=== PATIENT | female | born 1940 | race Caucasian/White ===

== ENCOUNTER 2016-08-27 19:07 | Inpatient (IN) | payer OTHER, MEDICARE ==
[2016-08-27] MEDS ORDERED: ONDANSETRON 4 MG/2 ML VIAL ONE ×2 (19:16→22:24)
[2016-08-27 19:28] VITALS: BMI 30.9
--- NOTE | 2016-08-27 19:38 | PDOC ---
History of Present Illness <Carmen Pathak - Last Filed: 08/28/16 00:19> <Serena Aguiar - Last Filed: 08/28/16 01:30> - General Chief Complaint: Lightheaded Stated Complaint: Nausea/Vomiting Time Seen by Provider: 08/27/16 19:32 - History of Present Illness Initial Comments: 08/27/16 20:34 Patient is a 76 year old female with significant medical hx of COPD, DM, HTN, carotid stenosis, HLD, lung CA (2005) (s/p VALENTIN resection and chemotherapy), CAD s/p CABG (2014), and AFib (on Eliquis) who is presenting to the ED via EMS from home with sudden onset of dizziness, nausea, and vomiting just prior to arrival. Patient states that she had an abrupt onset of dizziness, that was somewhat vertiginous, with multiple episodes of nausea and vomiting that followed. The patient is also complaining of palpitations and tachycardia. She denies any fevers, chills, chest pain, or shortness of breath. Social Hx: Quit smoking 11 years ago, smoked for 50 years prior. PCP: Cosme Spring MD Industrial Servicer: Mat Wynn MD (Carmen Pathak) Past History <Carmen Pathak - Last Filed: 08/28/16 00:19> - Past Medical History Cancer: Yes (LOWER LOBE LUNG) Cardiac Disorders: (ATRIAL FIB) CVA: No COPD: Yes (EMPHYSEMA) CHF: Yes Dementia: No Diabetes: Yes (NIDDM - NO MED) GI Disorders: Yes (REFLUX) Disorders: No HTN: Yes Hypercholesterolemia: Yes Seizures: No Thyroid Disease: No - Surgical History Lung Surgery: Yes (lung resection) - Psycho/Social/Smoking Cessation Hx Anxiety: No Suicidal Ideation: No Smoking Status: No Smoking History: Former smoker Have you smoked in the past 12 months: No Number of Cigarettes Smoked Daily: 0 If you are a former smoker, when did you quit?: 8YRS AGO Information on smoking cessation initiated: No Hx Alcohol Use: No Drug/Substance Use Hx: No Substance Use Type: Alcohol Hx Substance Use Treatment: No <Serena Aguiar - Last Filed: 08/28/16 01:30> - Past Medical History Allergies/Adverse Reactions: Allergies Allergy/AdvReac Type Severity Reaction Status Date / Time No Known Drug Allergies Allergy Verified 08/27/16 19:25 Home Medications: Ambulatory Orders Alprazolam [Xanax] 0.25 mg PO Q6H PRN #0 tablet 11/24/12 Escitalopram Oxalate [Lexapro -] 10 mg PO DAILY 03/15/14 Furosemide [Lasix -] 40 mg PO DAILY 03/15/14 Meloxicam [Mobic -] 15 mg PO DAILY 03/15/14 Omeprazole [Prilosec] 20 mg PO DAILY 03/15/14 Atorvastatin Calcium 20 mg PO DAILY 02/16/15 Diltiazem HCl [Cardizem LA] 240 mg PO DAILY 02/16/15 Apixaban [Eliquis] 5 mg PO BID 02/17/15 Metoprolol Succinate [Toprol Xl] 50 mg PO DAILY 02/17/15 Metoprolol Succinate [Toprol Xl -] 25 mg PO HS 08/28/16 Review of Systems <Carmen Pathak - Last Filed: 08/28/16 00:19> <Serena Aguiar - Last Filed: 08/28/16 01:30> - Review of Systems Comments:: 08/27/16 20:35 CONSTITUTIONAL: Absent: fever, chills, diaphoresis, generalized weakness, malaise, loss of appetite HEENT: Absent: rhinorrhea, nasal congestion, throat pain, throat swelling, difficulty swallowing, mouth swelling, ear pain, eye pain, visual changes CARDIOVASCULAR: Present: palpitations, tachycardia Absent: chest pain, syncope, lightheadedness, peripheral edema RESPIRATORY: Absent: cough, shortness of breath, dyspnea with exertion, orthopnea, wheezing, stridor, hemoptysis GASTROINTESTINAL: Present: nausea, vomiting Absent: abdominal pain, abdominal distension, diarrhea, constipation, melena, hematochezia GENITOURINARY: Absent: dysuria, frequency, urgency, hesitancy, hematuria, flank pain, genital pain MUSCULOSKELETAL: Absent: myalgia, arthralgia, joint swelling SKIN: Absent: rash, itching, pallor HEMATOLOGIC/IMMUNOLOGIC: Absent: easy bleeding, easy bruising, lymphadenopathy, frequent infections ENDOCRINE: Absent: unexplained weight gain, unexplained weight loss, heat intolerance, cold intolerance NEUROLOGIC: Present: dizziness Absent: headache, focal weakness or paresthesia, unsteady gait, seizure, mental status changes, bladder or bowel incontinence. PSYCHIATRIC: Absent: anxiety, depression, suicidal or homicidal ideation, hallucinations (Carmen Pathak) *Physical Exam <Carmen Pathak - Last Filed: 08/28/16 00:19> <Serena Aguiar - Last Filed: 08/28/16 01:30> - Vital Signs Last Vital Signs Temp Pulse Resp BP Pulse Ox 97.2 F L 106 H 20 170/102 95 08/27/16 19:25 08/28/16 00:30 08/28/16 00:30 08/28/16 00:30 08/28/16 00:30 - Physical Exam Comments: 08/27/16 20:36 GENERAL: Well developed, well nourished. Awake and alert. Diaphoretic. Moderate distress. HEENT: Normocephalic, atraumatic. PERRLA, EOMI. No conjunctival pallor. Sclera are non- icteric. Moist mucous membranes. Oropharynx is clear. NECK: Supple. Full ROM. No JVD. Carotid pulses 2+ and symmetric, without bruits. No thyromegaly. No lymphadenopathy. CARDIOVASCULAR: Tachycardic. Irregularly irregular. No murmurs, rubs, or gallops. Distal pulses are 2+ and symmetric. PULMONARY: No evidence of respiratory distress. Lungs clear to auscultation bilaterally. No wheezing, rales or rhonchi. ABDOMINAL: Protuberant. Soft. Non-tender. Non-distended. No rebound or guarding. No organomegaly. Normoactive bowel sounds. MUSCULOSKELETAL: Normal range of motion at all joints. No bony deformities or tenderness. No CVA tenderness. EXTREMITIES: No cyanosis. No clubbing. No edema. No calf tenderness. SKIN: Warm and dry. Normal capillary refill. No rashes. No jaundice. NEUROLOGICAL: Alert, awake, appropriate. Cranial nerves 2-12 intact. Normal speech. Toes are down-going bilaterally. PSYCHIATRIC: Cooperative. Good eye contact. Appropriate mood and affect. (Carmen Pathak) Heart Score/ECG Review <Carmen Pathak - Last Filed: 08/28/16 00:19> <Serena Aguiar - Last Filed: 08/28/16 01:30> #1 08/27/16 20:40 Poor data quality, interpretation may be adversely affected Atrial fibrillation with rapid ventricular response with premature ventricular or aberrantly conducted complexes Possible Anterior infarct, age undetermined ST & T wave abnormality, consider lateral ischemia Abnormal ECG (Carmen Pathak) ED Treatment Course - LABORATORY CBC & Chemistry Diagram: 08/27/16 19:55 08/27/16 19:55 <Carmen Pathak - Last Filed: 08/28/16 00:19> - LABORATORY CBC & Chemistry Diagram: 08/27/16 19:55 08/27/16 19:55 <Serena Aguiar - Last Filed: 08/28/16 01:30> - ADDITIONAL ORDERS Additional order review: Laboratory Results 08/27/16 08/27/16 19:55 19:55 INR 1.29 H PTT (Actin FS) 32.1 Sodium 139 Potassium 3.5 D Chloride 105 Carbon Dioxide 22 D Anion Gap 12 BUN 17 Creatinine 0.8 Creat Clearance w eGFR > 60 Random Glucose 153 H D Calcium 8.5 Total Bilirubin 0.4 D AST 22 D ALT 30 Alkaline Phosphatase 82 D Creatine Kinase 42 Troponin I < 0.02 Total Protein 6.6 Albumin 3.3 L 08/27/16 19:55 RBC 4.61 MCV 92.3 MCHC 33.2 RDW 13.4 MPV 8.6 D Neutrophils % 67.1 Lymphocytes % 21.2 Monocytes % 9.6 Eosinophils % 1.0 Basophils % 1.1 - RADIOLOGY Radiology Studies Ordered: Category Date Time Status HEAD CT WITHOUT CONTRAST [CT] Stat CT Scan 08/27/16 21:34 Taken CHEST X-RAY PORTABLE* [RAD] Stat Radiology 08/27/16 19:43 Taken Radiograph Interpretation: 08/28/16 00:19 Road Oiler: ([email or web address]) Report Date: 08/27/2016 23:00:00 Report Status: Preliminary Begin of Report Content Referring Physician: Serena Aguiar Patient Name: Dianelys Delgado THIS IS A PRELIMINARY REPORT FROM [facility] EXAM: CT brain without contrast IMAGES: 171 EXAM DATE AND TIME: 2016-08-27 23:00:22.0 REASON FOR EXAM: Rule out subdural hemorrhage COMPARISON: CT brain July 03, 2005 FINDINGS: Bifrontal atrophic changes noted, present back in 2005. Involutional changes have progressed since then. No hemorrhage. No mass. Bilateral amado radiata chronic small vessel disease versus small vessel infarcts of indeterminate age. No shift or herniation. Osseous structures are intact. THIS DOCUMENT HAS BEEN ELECTRONICALLY SIGNED Devyn Duran MD 08/28/2016 00:07 KORIN Cisneros Please call [facility] [phone] ([phone]) with questions. End of Report Content (Lawson, Carmen) - Medications Given in the ED: ED Medications Discontinued Medications Generic Name Dose Route Start Last Admin Trade Name Freq PRN Reason Stop Dose Admin Diphenhydramine HCl 25 mg 08/27/16 20:08 08/27/16 20:29 Benadryl Injection - IVPB 08/27/16 20:09 25 mg ONCE ONE Administration Meclizine HCl 25 mg 08/27/16 21:51 08/27/16 21:55 Antivert - PO 08/27/16 21:52 25 mg ONCE ONE Administration Meclizine HCl 25 mg 08/27/16 22:17 08/27/16 23:47 Antivert - PO 08/27/16 22:18 25 mg ONCE ONE Administration Metoclopramide HCl 10 mg 08/27/16 20:07 08/27/16 20:29 Reglan Injection - IVPB 08/27/16 20:08 10 mg ONCE ONE Administration Metoprolol Succinate 50 mg 08/27/16 21:25 08/27/16 21:36 Toprol Xl - PO 08/27/16 21:26 50 mg ONCE ONE Administration Ondansetron HCl 4 mg 08/27/16 20:10 08/27/16 21:14 Zofran Injection IVPUSH 08/27/16 20:11 Not Given ONCE ONE Ondansetron HCl 4 mg 08/27/16 22:26 08/27/16 22:36 Zofran Injection IVPUSH 08/27/16 22:27 4 mg ONCE ONE Administration *DC/Admit/Observation/Transfer <Lawson,Carmen - Last Filed: 08/28/16 00:19> - Discharge Dispostion Admit: Yes <Serena Aguiar - Last Filed: 08/28/16 01:30> Diagnosis at time of Disposition: Vertigo Afib Qualifiers: Atrial fibrillation type: chronic Qualified Code(s): I48.2 - Chronic atrial fibrillation HTN (hypertension) Qualifiers: Hypertension type: essential hypertension Qualified Code(s): I10 - Essential ( primary) hypertension Intractable vomiting with nausea Qualifiers: Vomiting type: unspecified Qualified Code(s): R11.2 - Nausea with vomiting, unspecified - Referrals Referrals: Cosme Spring MD [Primary Care Provider] - - Attestations Scribe Attestion: 08/27/16 20:37 Documentation prepared by Carmen aPthak, acting as medical illustrator for Serena Aguiar MD. (Carmen Pathak)
[2016-08-27 20:00] LABS: BASOPHIL 1.1 % (0-2.0); MCH 30.6 pg (25.7-33.7); MCHC 33.2 g/dl (32.0-36.0); MEAN CELL VOLUME 92.3 fl (80-96); MEAN PLT VOLUME 8.6 fl (7.5-11.1); NEUTROPHILS 67.1 % (42.8-82.8); PLATELET COUNT 325 K/MM3 (134-434); RDW 13.4 % (11.6-15.6); WHITE BLOOD COUNT 9.9 K/mm3 (4.0-10.0)
[2016-08-27] MEDS ORDERED: METOCLOPRAMIDE HCL INJECTION 10 MG/2 ML VIAL IVPB ONE (20:07)
[2016-08-27] MEDS ORDERED: ONDANSETRON 4 MG/2 ML VIAL IVPUSH ONE ×2 (20:10→22:26)
[2016-08-27 20:12] LABS: INR 1.29 (0.82-1.09); PROTHROMBIN TIME (PATIENT) 14.3 SEC (9.98-11.88)
[2016-08-27 20:14] LABS: ACTIVATED PTT 32.1 SECONDS (26.9-34.4)
[2016-08-27] MEDS ORDERED: METOCLOPRAMIDE HCL INJECTION 10 MG/2 ML VIAL ONE (20:16)
[2016-08-27 20:22] LABS: ALBUMIN 3.3 g/dl (3.4-5.0); ALK PHOS 82 U/L (45-117); ANION GAP 12 (8-16); BILIRUBIN,TOTAL 0.4 mg/dL (0.2-1.0); CALCIUM 8.5 mg/dL (8.5-10.1); CO2 22 mmol/L (21-32); CREATININE 0.8 mg/dL (0.55-1.02); GLUCOSE,RANDOM 153 mg/dL (74-106); SGPT/ALT 30 U/L (12-78); TOT PROT 6.6 g/dl (6.4-8.2)
[2016-08-27 20:23] LABS: TROPONIN I < 0.02 ng/ml (0.00-0.05)
[2016-08-27 20:31] LABS: SGOT/AST 22 U/L (15-37)
[2016-08-27] MEDS ORDERED: METOPROLOL SUCCINATE 50 MG TAB.SR.24H (FP) PO ONE (21:25)
[2016-08-27] MEDS ORDERED: METOPROLOL SUCCINATE 50 MG TAB.SR.24H (FP) ONE (21:34)
[2016-08-27] MEDS ORDERED: MECLIZINE HCL 25 MG TABLET (FP) PO ONE ×2 (21:51→22:17)
[2016-08-27] MEDS ORDERED: MECLIZINE HCL 25 MG TABLET (FP) ONE ×2 (21:52→22:24)
[2016-08-28] MEDS ORDERED: METOPROLOL TARTRATE 5 MG/5 ML VIAL IVPUSH ONE (01:03)
[2016-08-28] MEDS ORDERED: METOPROLOL TARTRATE 5 MG/5 ML VIAL ONE (01:06)
[2016-08-28] MEDS ORDERED: dilTIAZem HCL 50 MG/10 ML - 10 ML VIAL IVPUSH ONE (02:31)
[2016-08-28] MEDS ORDERED: ACETAMINOPHEN 325 MG TABLET (FP) ONE (06:52)
[2016-08-28] MEDS ORDERED: SENNOSIDES 8.6MG TABLET (FP) PO PRN (11:17)
--- NOTE | 2016-08-28 11:20 | CON.CARD ---
Cardiology Consult (text) - Consultation Consultation Note: CC: afib 76 yo with h/o Lung CA, s/p resection and Chemo, Afib, CAD s/p CABG (2014), HTN , HL, DM, COPD, Anxiety, PAD s/p Fem-Fem bypass, carotid stenosis, lung CA (2005 ) (s/p VALENTIN resection and chemotherapy) p/w sudden onset of dizziness, nausea, and vomiting. Had acute onset of dizziness, spinning sensation associated with nausea and subsequent vomiting. symptoms worsened by movement, but also with severe dizziness and nausea even at rest. constant symptoms. Symptoms somewhat improved in ER with IVF and zofran. no preceding viral symptoms. denies any fevers, chills, sweats, diarrhea, headache, denies orthopnea, pnd, le edema, chest pain, or shortness of breath, transient neurologic symptoms . s/p 10 mg IV dilt, 5 mg IV metoprolol and 50 mg of toprol in ER. pmhx/pshx: per hi fam hx: no h/o afib Social Hx: Quit smoking 11 years ago, smoked for 50 years prior. ros: per hpi Commercial Accountant: Mat Wynn MD Ambulatory Orders Alprazolam [Xanax] 0.25 mg PO Q6H PRN #0 tablet 11/24/12 Escitalopram Oxalate [Lexapro -] 10 mg PO DAILY 03/15/14 Furosemide [Lasix -] 40 mg PO DAILY 03/15/14 Meloxicam [Mobic -] 15 mg PO DAILY 03/15/14 Omeprazole [Prilosec] 20 mg PO DAILY 03/15/14 Atorvastatin Calcium 20 mg PO DAILY 02/16/15 Diltiazem HCl [Cardizem LA] 240 mg PO DAILY 02/16/15 Apixaban [Eliquis] 5 mg PO BID 02/17/15 Metoprolol Succinate [Toprol Xl] 50 mg PO DAILY 02/17/15 Metoprolol Succinate [Toprol Xl -] 25 mg PO HS 08/28/16 Vital Signs - 24 hr 08/27/16 08/27/16 08/28/16 19:25 19:55 00:00 Temperature 97.2 F L Pulse Rate 142 H 104 H Pulse Rate [ 108 H Apical] Respiratory 14 18 Rate Blood Pressure 184/92 Blood Pressure 147/119 [Left Arm] O2 Sat by Pulse 99 99 97 Oximetry (%) 08/28/16 08/28/16 08/28/16 00:30 01:00 01:25 Temperature Pulse Rate 111 H Pulse Rate [ 106 H 111 H Apical] Respiratory 20 20 Rate Blood Pressure 154/133 Blood Pressure 170/102 154/133 [Left Arm] O2 Sat by Pulse 95 95 Oximetry (%) 08/28/16 08/28/16 08/28/16 01:30 02:00 02:30 Temperature Pulse Rate Pulse Rate [ 105 H 109 H 110 H Apical] Respiratory 20 20 20 Rate Blood Pressure Blood Pressure 153/109 164/111 155/96 [Left Arm] O2 Sat by Pulse 96 95 96 Oximetry (%) 08/28/16 08/28/16 08/28/16 03:00 03:30 04:00 Temperature Pulse Rate Pulse Rate [ 102 H 99 H 102 H Apical] Respiratory 19 22 21 Rate Blood Pressure Blood Pressure 140/101 180/98 159/106 [Left Arm] O2 Sat by Pulse 95 95 96 Oximetry (%) 08/28/16 08/28/16 08/28/16 04:30 05:00 05:30 Temperature Pulse Rate Pulse Rate [ 106 H 107 H 108 H Apical] Respiratory 20 20 23 Rate Blood Pressure Blood Pressure 164/82 148/103 167/108 [Left Arm] O2 Sat by Pulse 96 93 L 94 L Oximetry (%) 08/28/16 08/28/16 08/28/16 06:00 06:30 07:16 Temperature 97.8 F Pulse Rate Pulse Rate [ 112 H 116 H Apical] Respiratory 20 20 Rate Blood Pressure Blood Pressure 152/97 146/99 [Left Arm] O2 Sat by Pulse 97 98 Oximetry (%) 08/28/16 09:43 Temperature 98 F Pulse Rate Pulse Rate [ 100 H Apical] Respiratory 18 Rate Blood Pressure Blood Pressure 139/74 [Left Arm] O2 Sat by Pulse 99 Oximetry (%) Intake & Output 08/26/16 08/27/16 08/28/16 08/29/16 07:59 07:59 07:59 07:59 Weight 180 lb uncomfortable, calm JVD flat, neck supple ctab, nl effort irregular, tachycardic nl s2, s2 no mrg + bs soft ntnd ext without e/c/c + dp/pt aaox3 CBC, BMP 08/27/16:55 08/27/16 19:55 Laboratory Tests 08/27/16 08/27/16 19:55 19:55 INR 1.29 H Total Bilirubin 0.4 D AST 22 D ALT 30 Alkaline Phosphatase 82 D Creatine Kinase 42 Troponin I < 0.02 Albumin 3.3 L EKG: afib pvc, poor baseline. no ischemic changes tele: afib, 100's-110's 05/2016 echo: 1. Atrial fibrillation. 2. The left ventricular size is normal. 3. Overall left ventricular systolic function is normal with, an EF between 60 - 70 %. 4. Unable to completely evaluate regional wall motion abnormality due to technical limitations, however none seen. 5. The right ventricle is normal in size and function; cavity not well seen. 6. Left atrium is moderately dilated by volume. 7. There is mild aortic regurgitation. 8. Irqf-aa-ylwrjazw mitral regurgitation is present. 9. Vlww-ty-rleekjse tricuspid regurgitation present. 10. Unable to estimate RVSP due to inadequate TR jet spectral doppler profile. 11. The aortic root size is normal; laminar atherosclerotic plaque present. 76 yo with h/o Lung CA, s/p resection and Chemo, Afib, CAD s/p CABG (2014), HTN , HL, DM, COPD, Anxiety, PAD s/p Fem-Fem bypass, carotid stenosis, lung CA (2005 ) (s/p VALENTIN resection and chemotherapy) p/w sudden onset of dizziness, nausea, and vomiting. presyncope - Symptoms of dizziness/nausea very severe, out of proportion to typical vertigo. Head CT negative for infarct or bleed. MRI ordered/pending. Patient on eliquis for atrial fibrillation. Low suspicion for infarct so will not hold eliquis, but will switch to heparin drip for reversibility. - neuro/wentconsult appreciated. - can hold lasix while on IVF/poor po intake. afib - con't home rate control medications, monitor for need for uptitration. htn - well controlled pad - con't statin, not on ASA (on AC)
--- NOTE | 2016-08-28 11:39 | HP ---
Admitting History and Physical - Primary Care Physician PCP: Cosme Spring - Admission Chief Complaint: Vertigo like dizzyness and nausea vomiting occuring suddenly when visiting her son yesterday. History of Present Illness: Patient with multiple medical illnesses including ASHD with CABG, COPD, HTN, Hyperlipidemia, Lung Ca treated with surgery and Chemotherapy, Atrial fibrillation, Carotid Artery Stenosis and DJD comes to hospital via ambulance after experiencing sever vertigo like dizzyness with nausea and vomiting while visiting her son last evening. Patient had no prior earache,headache or sudden head movement. No chest pain but was having palpitations. CAT scan Head: no acute finding. History Source: Patient Limitations to Obtaining History: No Limitations - Past Medical History Cardiovascular: Yes: AFIB (now in NSR), CAD, HTN Pulmonary: Yes: COPD Heme/Onc: Yes: Cancer (lung) Psych: Yes: Anxiety Musculoskeletal: Yes: Chronic low back pain Endocrine: Yes: Diabetes Mellitus (partial lobectomy lung CA) - Past Surgical History Past Surgical History: Yes: Bypass (Fem-Fem), CABG, Thoracotomy - Smoking History Smoking history: Former smoker Have you smoked in the past 12 months: No Aproximately how many cigarettes per day: 0 If you are a former smoker, when did you quit?: 8YRS AGO - Alcohol/Substance Use Hx Alcohol Use: No History of Substance Use: reports: None - Social History Usual Living Arrangement: Yes: Alone ADL: Independent Occupation: retired History of Recent Travel: No Home Medications - Allergies Allergies/Adverse Reactions: Allergies Allergy/AdvReac Type Severity Reaction Status Date / Time No Known Drug Allergies Allergy Verified 08/27/16 19:25 - Home Medications Home Medications: Ambulatory Orders Alprazolam [Xanax] 0.25 mg PO Q6H PRN #0 tablet 11/24/12 Escitalopram Oxalate [Lexapro -] 10 mg PO DAILY 03/15/14 Furosemide [Lasix -] 40 mg PO DAILY 03/15/14 Meloxicam [Mobic -] 15 mg PO DAILY 03/15/14 Omeprazole [Prilosec] 20 mg PO DAILY 03/15/14 Atorvastatin Calcium 20 mg PO DAILY 02/16/15 Diltiazem HCl [Cardizem LA] 240 mg PO DAILY 02/16/15 Apixaban [Eliquis] 5 mg PO BID 02/17/15 Metoprolol Succinate [Toprol Xl] 50 mg PO DAILY 02/17/15 Metoprolol Succinate [Toprol Xl -] 25 mg PO HS 08/28/16 Family Disease History - Family Disease History Family Disease History: CA: Father (larynx 58), Other: Mother (CVA 80; hx breast Ca) Review of Systems - Review of Systems Constitutional: reports: Weakness Eyes: reports: Other (nystagmus) HENT: denies: Ringing in Ears Neck: denies: No Symptoms Cardiovascular: reports: Palpitations Respiratory: reports: SOB on Exertion Gastrointestinal: denies: Abdominal Pain Genitourinary: denies: Burning Musculoskeletal: reports: Back Pain Integumentary: reports: No Symptoms Neurological: reports: Dizziness Endocrine: reports: No Symptoms Psychiatric: reports: Anxiety Physical Examination Vital Signs: Vital Signs Temperature 98 F 08/28/16 09:43 Pulse Rate 100 H 08/28/16 09:43 Respiratory Rate 18 08/28/16 09:43 Blood Pressure 139/74 08/28/16 09:43 O2 Sat by Pulse Oximetry (%) 99 08/28/16 09:43 Constitutional: Yes: Calm. No: Pallor Eyes: Yes: Other (dizzyness when turning eyes to the right or left.) Neck: Yes: Supple Cardiovascular: Yes: Tachycardia, Pulse Irregular Respiratory: Yes: Regular, Diminished Gastrointestinal: Yes: Soft, Abdomen, Obese, Hyperactive Bowel Sounds Musculoskeletal: Yes: Back Pain Edema: LLE: 1+, RLE: 1+ Neurological: Yes: Alert, Oriented Imaging - Results Cat Scan: Report Reviewed Problem List - Problems (1) Vertigo Assessment/Plan: ? due BPV VS vascular event Code(s): R42 - DIZZINESS AND GIDDINESS (2) Afib Assessment/Plan: On Eliquis; followed by Cardiology Code(s): I48.91 - UNSPECIFIED ATRIAL FIBRILLATION Qualifiers: Atrial fibrillation type: chronic Qualified Code(s): I48.2 - Chronic atrial fibrillation (3) HTN (hypertension) Assessment/Plan: On Rx 139/74 Code(s): I10 - ESSENTIAL (PRIMARY) HYPERTENSION Qualifiers: Hypertension type: essential hypertension Qualified Code(s): I10 - Essential (primary) hypertension (4) CAD (coronary artery disease) Code(s): I25.10 - ATHSCL HEART DISEASE OF [place] CORONARY ARTERY W/O ANG PCTRS (5) Intractable vomiting with nausea Assessment/Plan: On Rx. Improved now and related to vertigo. Code(s): R11.2 - NAUSEA WITH VOMITING, UNSPECIFIED Qualifiers: Vomiting type: unspecified Qualified Code(s): R11.2 - Nausea with vomiting, unspecified (6) COPD (chronic obstructive pulmonary disease) Assessment/Plan: No acute exacerbation Code(s): J44.9 - CHRONIC OBSTRUCTIVE PULMONARY DISEASE, UNSPECIFIED (7) Carotid stenosis Assessment/Plan: Followed by Dr. Giraldo Code(s): I65.29 - OCCLUSION AND STENOSIS OF UNSPECIFIED CAROTID ARTERY (8) Diabetes Assessment/Plan: Glucose 153 Code(s): E11.9 - TYPE 2 DIABETES MELLITUS WITHOUT COMPLICATIONS
[2016-08-28] MEDS ORDERED: POTASSIUM CHLORIDE TABS 20 MEQ TABLET.ER (FP) PO ONE ×2 (13:00→13:24)
[2016-08-28] MEDS ORDERED: APIXABAN 5 MG TABLET PO SCH (13:00)
[2016-08-28] MEDS ORDERED: FUROSEMIDE 40 MG TABLET (FP) PO SCH (13:00)
[2016-08-28] MEDS ORDERED: ESCITALOPRAM OXALATE 10 MG TABLET (FP) ONE (13:24)
[2016-08-28] MEDS ORDERED: FUROSEMIDE 40 MG TABLET (FP) ONE (13:24)
[2016-08-28] MEDS: ALPRAZolam 0.25 MG TABLET PO PRN ×2 (13:32→21:37)
[2016-08-28] MEDS: ESCITALOPRAM OXALATE 10 MG TABLET (FP) PO SCH (13:32)
[2016-08-28] MEDS ORDERED: ALPRAZolam 0.25 MG TABLET ONE (13:32)
[2016-08-28] MEDS ORDERED: MECLIZINE HCL 25 MG TABLET (FP) ONE (13:49)
[2016-08-28] MEDS: MECLIZINE HCL 25 MG TABLET (FP) PO PRN ×2 (13:50→21:37)
--- NOTE | 2016-08-28 14:10 | EKG ---
Test Reason : Blood Pressure : / mmHG Vent. Rate : 104 BPM Atrial Rate : 147 BPM P-R Int : 000 ms QRS Dur : 082 ms QT Int : 456 ms P-R-T Axes : 000 044 165 degrees QTc Int : 599 ms ATRIAL FIBRILLATION WITH RAPID VENTRICULAR RESPONSE WITH PREMATURE VENTRICULAR OR ABERRANTLY CONDUCTED COMPLEXES POSSIBLE ANTERIOR INFARCT , AGE UNDETERMINED ABNORMAL ECG WHEN COMPARED WITH ECG OF 17-FEB-2015 13:47, ATRIAL FIBRILLATION HAS REPLACED SINUS RHYTHM VENT. RATE HAS INCREASED BY 45 BPM T WAVE VARIATION QT HAS LENGTHENED Confirmed by JOAO OCHOA MD ([id number]) on 08/28/2016 2:09:53 PM Referred By: Confirmed By:JOAO OCHOA MD
[2016-08-28] MEDS: ONDANSETRON 4 MG/2 ML VIAL IVPB PRN ×2 (15:14→21:42)
[2016-08-28] MEDS ORDERED: PNEUMOC 13-VAL CONJ-DIP CRM/PF 0.5 ML DISP.SYRIN IM ONE (17:00)
--- NOTE | 2016-08-28 18:20 | PN ---
Progress Note (short form) - Note Progress Note: Pt examined and chart reviewed, full note to follow A/P: appears to have viral labyrinthitis. She has no tinnitus or hearing change. TMs normal. Would give Diazepam and antivert prn to control vertigo. Will see as outpatient after discharge for other audiologic testing several days to a week after d/c
[2016-08-28] MEDS ORDERED: HEPARIN NA (PORCINE) 5,000 UNITS/ML 1ML VIAL IVPUSH PRN ×3 (18:22→18:32)
[2016-08-28] MEDS ORDERED: HEPARIN - 25,000 UNIT in SODIUM CHLORIDE 495 ML IV SCH (18:30)
[2016-08-28] MEDS: DEXTROSE 5%-0.45% SALINE 1,000 ML IV SCH (18:48)
[2016-08-28] MEDS: ACETAMINOPHEN 325 MG TABLET (FP) PO PRN (18:52)
[2016-08-28 20:27] LABS: INR 1.18 (0.82-1.09)
[2016-08-28 20:30] LABS: ACTIVATED PTT 32.3 SECONDS (26.9-34.4)
[2016-08-28] MEDS: ATORVASTATIN CA 20 MG TABLET (FP) PO SCH (21:37)
[2016-08-28] MEDS: METOPROLOL SUCCINATE 25 MG TAB.SR.24H (FP) PO SCH (21:37)
[2016-08-28] MEDS: HEPARIN INFUSION - 500 ML IVPB SCH (23:16)
[2016-08-29 08:21] LABS: BASOPHIL 0.9 % (0-2.0); EOSINOPHIL 1.1 % (0-4.5); MCH 31.1 pg (25.7-33.7); MCHC 33.9 g/dl (32.0-36.0); MEAN CELL VOLUME 91.8 fl (80-96); MEAN PLT VOLUME 8.5 fl (7.5-11.1); NEUTROPHILS 66.3 % (42.8-82.8); PLATELET COUNT 296 K/MM3 (134-434); RDW 13.6 % (11.6-15.6)
[2016-08-29 09:02] LABS: CALCIUM 8.6 mg/dL (8.5-10.1); COCKROFT - GAULT 67.4645; CREATININE 0.9 mg/dL (0.55-1.02)
--- NOTE | 2016-08-29 09:05 | PN ---
Progress Note (short form) - Note Progress Note: patient seen and examined. Problem List - Problems (1) Vertigo Code(s): R42 - DIZZINESS AND GIDDINESS (2) Afib Code(s): I48.91 - UNSPECIFIED ATRIAL FIBRILLATION Qualifiers: Atrial fibrillation type: chronic Qualified Code(s): I48.2 - Chronic atrial fibrillation (3) HTN (hypertension) Code(s): I10 - ESSENTIAL (PRIMARY) HYPERTENSION Qualifiers: Hypertension type: essential hypertension Qualified Code(s): I10 - Essential (primary) hypertension (4) CAD (coronary artery disease) Code(s): I25.10 - ATHSCL HEART DISEASE OF [place] CORONARY ARTERY W/O ANG PCTRS (5) Intractable vomiting with nausea Code(s): R11.2 - NAUSEA WITH VOMITING, UNSPECIFIED Qualifiers: Vomiting type: unspecified Qualified Code(s): R11.2 - Nausea with vomiting, unspecified (6) COPD (chronic obstructive pulmonary disease) Code(s): J44.9 - CHRONIC OBSTRUCTIVE PULMONARY DISEASE, UNSPECIFIED (7) Carotid stenosis Code(s): I65.29 - OCCLUSION AND STENOSIS OF UNSPECIFIED CAROTID ARTERY (8) Diabetes Code(s): E11.9 - TYPE 2 DIABETES MELLITUS WITHOUT COMPLICATIONS
[2016-08-29] MEDS: HEPARIN INFUSION - 500 ML IVPB SCH ×3 (09:19→23:37)
[2016-08-29] MEDS: ESCITALOPRAM OXALATE 10 MG TABLET (FP) PO SCH (09:32)
[2016-08-29] MEDS: ACETAMINOPHEN 325 MG TABLET (FP) PO PRN ×3 (09:32→22:13)
[2016-08-29] MEDS: METOPROLOL SUCCINATE 50 MG TAB.SR.24H (FP) PO SCH (09:32)
[2016-08-29] MEDS: PANTOPRAZOLE 40 MG TABLET (FP) PO SCH (09:32)
[2016-08-29 09:49] LABS: THYROID STIMULATING HORMONE 1.72 uIU/ml (0.358-3.74)
--- NOTE | 2016-08-29 10:52 | CONSULT ---
Consult - text type - Consultation Consultation Note: Neurology History of Present Illness Patient is a 76 year old female with significant medical hx of COPD, DM, HTN, carotid stenosis, HLD, lung CA (2005) (s/p VALENTIN resection and chemotherapy), CAD s/p CABG (2014), and AFib (on Eliquis) who is presented to the ED via EMS from home with sudden onset of dizziness, nausea, and vomiting just prior to arrival. Patient states that she had an abrupt onset of dizziness, that was somewhat vertiginous, with multiple episodes of nausea and vomiting that followed. The patient is also complaining of palpitations and tachycardia. She denies any fevers, chills, chest pain, or shortness of breath. She was seen by Cardiology and is also being treated for BPPV with Meclezine. MRI brain ordered. 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) GI Disorders: Yes (REFLUX) Disorders: No HTN: Yes Hypercholesterolemia: Yes Seizures: No Thyroid Disease: No - Surgical History Lung Surgery: Yes (lung resection) - Psycho/Social/Smoking Cessation Hx Anxiety: No Suicidal Ideation: No Smoking Status: No Smoking History: Former smoker Have you smoked in the past 12 months: No Number of Cigarettes Smoked Daily: 0 If you are a former smoker, when did you quit?: 8YRS AGO Information on smoking cessation initiated: No Hx Alcohol Use: No Drug/Substance Use Hx: No Substance Use Type: Alcohol Hx Substance Use Treatment: No - Past Medical History Allergies/Adverse Reactions: Allergies Allergy/AdvReac Type Severity Reaction Status Date / Time No Known Drug Allergies Allergy Verified 08/27/16 19:25 Home Medications: Ambulatory Orders Alprazolam [Xanax] 0.25 mg PO Q6H PRN #0 tablet 11/24/12 Escitalopram Oxalate [Lexapro -] 10 mg PO DAILY 03/15/14 Furosemide [Lasix -] 40 mg PO DAILY 03/15/14 Meloxicam [Mobic -] 15 mg PO DAILY 03/15/14 Omeprazole [Prilosec] 20 mg PO DAILY 03/15/14 Atorvastatin Calcium 20 mg PO DAILY 02/16/15 Diltiazem HCl [Cardizem LA] 240 mg PO DAILY 02/16/15 Apixaban [Eliquis] 5 mg PO BID 02/17/15 Metoprolol Succinate [Toprol Xl] 50 mg PO DAILY 02/17/15 Metoprolol Succinate [Toprol Xl -] 25 mg PO HS 08/28/16 Review of Systems CONSTITUTIONAL: Absent: fever, chills, diaphoresis, generalized weakness, malaise, loss of appetite HEENT: Absent: rhinorrhea, nasal congestion, throat pain, throat swelling, difficulty swallowing, mouth swelling, ear pain, eye pain, visual changes CARDIOVASCULAR: Present: palpitations, tachycardia Absent: chest pain, syncope, lightheadedness, peripheral edema RESPIRATORY: Absent: cough, shortness of breath, dyspnea with exertion, orthopnea, wheezing, stridor, hemoptysis GASTROINTESTINAL: Present: nausea, vomiting Absent: abdominal pain, abdominal distension, diarrhea, constipation, melena, hematochezia GENITOURINARY: Absent: dysuria, frequency, urgency, hesitancy, hematuria, flank pain, genital pain MUSCULOSKELETAL: Absent: myalgia, arthralgia, joint swelling SKIN: Absent: rash, itching, pallor HEMATOLOGIC/IMMUNOLOGIC: Absent: easy bleeding, easy bruising, lymphadenopathy, frequent infections ENDOCRINE: Absent: unexplained weight gain, unexplained weight loss, heat intolerance, cold intolerance NEUROLOGIC: Present: dizziness Absent: headache, focal weakness or paresthesia, unsteady gait, seizure, mental status changes, bladder or bowel incontinence. PSYCHIATRIC: Absent: anxiety, depression, suicidal or homicidal ideation, hallucinations *Physical Exam - Vital Signs Last Vital Signs Temp Pulse Resp BP Pulse Ox 97.2 F L 106 H 20 170/102 95 08/27/16 19:25 08/28/16 00:30 08/28/16 00:30 08/28/16 00:30 08/28/16 00:30 Well developed, well nourished. Awake and alert. Diaphoretic. Moderate distress. HEENT: Normocephalic, atraumatic. PERRLA, EOMI. No conjunctival pallor. Sclera are non- icteric. Moist mucous membranes. Oropharynx is clear. NECK: Supple. Full ROM. No JVD. Carotid pulses 2+ and symmetric, without bruits. No thyromegaly. No lymphadenopathy. CARDIOVASCULAR: Tachycardic. Irregularly irregular. No murmurs, rubs, or gallops. Distal pulses are 2+ and symmetric. PULMONARY: No evidence of respiratory distress. Lungs clear to auscultation bilaterally. No wheezing, rales or rhonchi. ABDOMINAL: Protuberant. Soft. Non-tender. Non-distended. No rebound or guarding. No organomegaly. Normoactive bowel sounds. MUSCULOSKELETAL: Normal range of motion at all joints. No bony deformities or tenderness. No CVA tenderness. EXTREMITIES: No cyanosis. No clubbing. No edema. No calf tenderness. SKIN: Warm and dry. Normal capillary refill. No rashes. No jaundice. NEUROLOGICAL: Alert, awake, appropriate. Cranial nerves 2-12 intact. Normal speech. Toes are down-going bilaterally. PSYCHIATRIC: Cooperative. Good eye contact. Appropriate mood and affect. (Carmen Pathak) Laboratory Results 08/27/16 08/27/16 19:55 19:55 INR 1.29 H PTT (Actin FS) 32.1 Sodium 139 Potassium 3.5 D Chloride 105 Carbon Dioxide 22 D Anion Gap 12 BUN 17 Creatinine 0.8 Creat Clearance w eGFR > 60 Random Glucose 153 H D Calcium 8.5 Total Bilirubin 0.4 D AST 22 D ALT 30 Alkaline Phosphatase 82 D Creatine Kinase 42 Troponin I < 0.02 Total Protein 6.6 Albumin 3.3 L 08/27/16 19:55 RBC 4.61 MCV 92.3 MCHC 33.2 RDW 13.4 MPV 8.6 D Neutrophils % 67.1 Lymphocytes % 21.2 Monocytes % 9.6 Eosinophils % 1.0 Basophils % 1.1 CT head FINDINGS: Bifrontal atrophic changes noted, present back in 2005. Involutional changes have progressed since then. No hemorrhage. No mass. Bilateral amado radiata chronic small vessel disease versus small vessel infarcts of indeterminate age. No shift or herniation. Osseous structures are intact. Plan: 76 year old female with significant medical hx of COPD, DM, HTN, carotid stenosis, HLD, lung CA (2005) (s/p VALENTIN resection and chemotherapy), CAD s/p CABG (2014), and AFib (on Eliquis) who is presented to the ED via EMS from home with sudden onset of dizziness, nausea, and vomiting just prior to arrival. Patient states that she had an abrupt onset of dizziness, that was somewhat vertiginous, with multiple episodes of nausea and vomiting that followed. The patient is also complaining of palpitations and tachycardia. She denies any fevers, chills, chest pain, or shortness of breath. She was seen by Cardiology and is also being treated for BPPV with Meclezine. MRI brain ordered. Much better feeling today. Reports minimal dizzyness with head movements but still does have discomfort. IV fluids on board. No sudden head movements. PT ordered.
[2016-08-29] MEDS ORDERED: PNEUMOC 13-VAL CONJ-DIP CRM/PF 0.5 ML DISP.SYRIN IM ONE (12:00)
[2016-08-29] MEDS: DEXTROSE 5%-0.45% SALINE 1,000 ML IV SCH ×2 (12:02→18:04)
[2016-08-29] MEDS: ONDANSETRON 4 MG/2 ML VIAL IVPB PRN (12:14)
[2016-08-29] MEDS: ALPRAZolam 0.25 MG TABLET PO PRN ×2 (12:54→22:14)
[2016-08-29 17:08] LABS: URINE APPEARANCE CLEAR; URINE BILIRUBIN NEGATIVE (NEGATIVE); URINE BLOOD 1+ (NEGATIVE); URINE COLOR LTYELLOW; URINE GLUCOSE (UA) NEGATIVE (NEGATIVE); URINE KETONE NEGATIVE (NEGATIVE); URINE LEUK ESTERASE TRACE (NEGATIVE); URINE NITRITE NEGATIVE (NEGATIVE); URINE PROTEIN NEGATIVE (NEGATIVE); URINE UROBILINOGEN NEGATIVE E.U./dl (0.2-1.0)
[2016-08-29 17:09] LABS: URINE BACTERIA RARE /hpf (NONE SEEN); URINE RBC 1 /hpf (0-3); URINE WBC 3 /hpf (3-5)
[2016-08-29] MEDS: METOPROLOL SUCCINATE 25 MG TAB.SR.24H (FP) PO SCH (22:14)
[2016-08-29] MEDS: ATORVASTATIN CA 20 MG TABLET (FP) PO SCH (22:14)
[2016-08-30] MEDS: ACETAMINOPHEN 325 MG TABLET (FP) PO PRN ×3 (07:05→21:41)
[2016-08-30 07:51] LABS: MCH 31.6 pg (25.7-33.7); MCHC 33.9 g/dl (32.0-36.0); MEAN CELL VOLUME 93.2 fl (80-96); MEAN PLT VOLUME 9.3 fl (7.5-11.1); PLATELET COUNT 306 K/MM3 (134-434); RDW 13.2 % (11.6-15.6); WHITE BLOOD COUNT 9.9 K/mm3 (4.0-10.0)
--- NOTE | 2016-08-30 09:15 | PN ---
Progress Note (short form) - Note Progress Note: Patient improved with less Vertigo but hasn't walked yet; PT ordered. Had MRI last evening; await report. Seen by Cardiology, Neuro and ENT. On Exam: Vital Signs Temp 98.2 F 08/30/16 05:35 Pulse 76 08/30/16 05:35 Resp 18 08/30/16 05:35 BP 136/84 08/30/16 05:35 Pulse Ox 98 08/29/16 21:00 Intake & Output 08/29/16 08/29/16 08/30/16 11:59 23:59 11:59 Intake Total 520 1448 520 Balance 520 1448 520 Weight 180 lb Intake: IV 520 998 520 D5-1/2Ns - 1,000 ml @ 42 336 630 336 mls/hr IV ASDIR TIARA Rx#: [id number] Heparin Infusion - 500 ml 184 368 184 @ 1,000 UNITS/HR 20 mls/ hr IVPB TITR TIARA Rx#: [id number] IVPB 50 Oral 400 Other: Voiding Method Bedpan Bedpan Bowel Movement Yes Weight Measurement Method Stated by Patient On Exam: Chest: Clear Cor: Irreg Abd: Soft Ext: No edema Abnormal Lab Results 08/29/16 08/30/16 16:30 06:05 PTT (Actin FS) 78.2 H Urine Blood 1+ H Ur Leukocyte Esterase Trace H IMP: Acute Vertigo ? Viral ? Infarct; MRI pending COPD PVD ASHD Plan: Start PT Problem List - Problems (1) Vertigo Code(s): R42 - DIZZINESS AND GIDDINESS (2) Afib Code(s): I48.91 - UNSPECIFIED ATRIAL FIBRILLATION Qualifiers: Qualified Code(s): I48.2 - Chronic atrial fibrillation (3) HTN (hypertension) Code(s): I10 - ESSENTIAL (PRIMARY) HYPERTENSION Qualifiers: Qualified Code(s): I10 - Essential (primary) hypertension (4) CAD (coronary artery disease) Code(s): I25.10 - ATHSCL HEART DISEASE OF [place] CORONARY ARTERY W/O ANG PCTRS (5) Intractable vomiting with nausea Code(s): R11.2 - NAUSEA WITH VOMITING, UNSPECIFIED Qualifiers: Qualified Code(s): R11.2 - Nausea with vomiting, unspecified (6) COPD (chronic obstructive pulmonary disease) Code(s): J44.9 - CHRONIC OBSTRUCTIVE PULMONARY DISEASE, UNSPECIFIED (7) Carotid stenosis Code(s): I65.29 - OCCLUSION AND STENOSIS OF UNSPECIFIED CAROTID ARTERY (8) Diabetes Code(s): E11.9 - TYPE 2 DIABETES MELLITUS WITHOUT COMPLICATIONS
[2016-08-30] MEDS: PANTOPRAZOLE 40 MG TABLET (FP) PO SCH (09:51)
[2016-08-30] MEDS: METOPROLOL SUCCINATE 50 MG TAB.SR.24H (FP) PO SCH (09:52)
[2016-08-30] MEDS: ESCITALOPRAM OXALATE 10 MG TABLET (FP) PO SCH (09:52)
[2016-08-30] MEDS: POTASSIUM CHLORIDE TABS 20 MEQ TABLET.ER (FP) PO SCH ×2 (09:52→21:40)
[2016-08-30] MEDS: HEPARIN INFUSION - 500 ML IVPB SCH ×3 (09:53→22:11)
--- NOTE | 2016-08-30 11:49 | PN ---
Progress Note (short form) - Note Progress Note: Neurology History of Present Illness Patient is a 76 year old female with significant medical hx of COPD, DM, HTN, carotid stenosis, HLD, lung CA (2005) (s/p VALENTIN resection and chemotherapy), CAD s/p CABG (2014), and AFib (on Eliquis) who is presented to the ED via EMS from home with sudden onset of dizziness, nausea, and vomiting just prior to arrival. Patient states that she had an abrupt onset of dizziness, that was somewhat vertiginous, with multiple episodes of nausea and vomiting that followed. The patient is also complaining of palpitations and tachycardia. She denies any fevers, chills, chest pain, or shortness of breath. She was seen by Cardiology and is also being treated for BPPV with Meclezine. MRI brain completed and reported normal but appears to have L occipital infarct on DWI sequence on my viewing. Patient on AC since prior to admission and no longer in 24-48hr window of holding AC and therefore can continue. Spoke to Cardiology regarding. MRA suggested by radiologist, will defer to PCP regarding this. Active Medications Acetaminophen (Tylenol -) 650 mg PO Q6H PRN PRN Reason: FEVER OR PAIN Last Admin: 08/30/16 07:05 Dose: 650 mg Alprazolam (Xanax -) 0.25 mg PO Q8H PRN PRN Reason: ANXIETY Last Admin: 08/29/16 22:14 Dose: 0.25 mg Atorvastatin Calcium (Lipitor -) 20 mg PO HS [facility] Last Admin: 08/29/16 22:14 Dose: 20 mg Diltiazem HCl (Cardizem Cd -) 240 mg PO DAILY [facility] Last Admin: 08/30/16 09:51 Dose: 240 mg Escitalopram Oxalate (Lexapro -) 10 mg PO DAILY [facility] Last Admin: 08/30/16 09:52 Dose: 10 mg Heparin Sodium (Porcine) (Heparin -) 5,000 unit IVPUSH PRN PRN Heparin Sodium (Porcine) (Heparin -) 1,000 unit IVPUSH PRN PRN Dextrose/Sodium Chloride (D5-1/2ns -) 1,000 mls @ 42 mls/hr IV ASDIR [facility] Last Admin: 08/29/16 18:04 Dose: Not Given Heparin Sodium/Dextrose (Heparin Infusion -) 500 mls @ 20 mls/hr IVPB TITR TIARA ; 1,000 UNITS/HR PRN Reason: Protocol Last Admin: 08/30/16 09:53 Dose: 22 mls/hr Meclizine HCl (Antivert -) 25 mg PO Q6H PRN PRN Reason: NAUSEA AND/OR VOMITING Last Admin: 08/28/16 21:37 Dose: 25 mg Metoprolol Succinate (Toprol Xl -) 50 mg PO DAILY [facility] Last Admin: 08/30/16 09:52 Dose: 50 mg Metoprolol Succinate (Toprol Xl -) 25 mg PO HS [facility] Last Admin: 08/29/16 22:14 Dose: 25 mg Ondansetron HCl (Zofran Injection) 4 mg IVPB Q6H PRN PRN Reason: NAUSEA Last Admin: 08/29/16 12:14 Dose: 4 mg Pantoprazole Sodium (Protonix -) 40 mg PO DAILY [facility] Last Admin: 08/30/16 09:51 Dose: 40 mg Potassium Chloride (K-Dur -) 20 meq PO BID [facility] Last Admin: 08/30/16 09:52 Dose: 20 meq Senna (Senna -) 2 tab PO HS PRN PRN Reason: CONSTIPATION *Physical Exam Last Vital Signs Temp Pulse Resp BP Pulse Ox 98.2 F 76 18 136/84 98 08/30/16 05:35 08/30/16 05:35 08/30/16 05:35 08/30/16 05:35 08/29/16 21:00 Well developed, well nourished. Awake and alert. Diaphoretic. Moderate distress. HEENT: Normocephalic, atraumatic. PERRLA, EOMI. No conjunctival pallor. Sclera are non- icteric. Moist mucous membranes. Oropharynx is clear. NECK: Supple. Full ROM. No JVD. Carotid pulses 2+ and symmetric, without bruits. No thyromegaly. No lymphadenopathy. CARDIOVASCULAR: Tachycardic. Irregularly irregular. No murmurs, rubs, or gallops. Distal pulses are 2+ and symmetric. PULMONARY: No evidence of respiratory distress. Lungs clear to auscultation bilaterally. No wheezing, rales or rhonchi. ABDOMINAL: Protuberant. Soft. Non-tender. Non-distended. No rebound or guarding. No organomegaly. Normoactive bowel sounds. MUSCULOSKELETAL: Normal range of motion at all joints. No bony deformities or tenderness. No CVA tenderness. EXTREMITIES: No cyanosis. No clubbing. No edema. No calf tenderness. SKIN: Warm and dry. Normal capillary refill. No rashes. No jaundice. NEUROLOGICAL: Alert, awake, appropriate. Cranial nerves 2-12 intact. Normal speech. Toes are down-going bilaterally. PSYCHIATRIC: Cooperative. Good eye contact. Appropriate mood and affect. (Carmen Pathak) Laboratory Results 08/27/16 08/27/16 19:55 19:55 INR 1.29 H PTT (Actin FS) 32.1 Sodium 139 Potassium 3.5 D Chloride 105 Carbon Dioxide 22 D Anion Gap 12 BUN 17 Creatinine 0.8 Creat Clearance w eGFR > 60 Random Glucose 153 H D Calcium 8.5 Total Bilirubin 0.4 D AST 22 D ALT 30 Alkaline Phosphatase 82 D Creatine Kinase 42 Troponin I < 0.02 Total Protein 6.6 Albumin 3.3 L 08/27/16 19:55 RBC 4.61 MCV 92.3 MCHC 33.2 RDW 13.4 MPV 8.6 D Neutrophils % 67.1 Lymphocytes % 21.2 Monocytes % 9.6 Eosinophils % 1.0 Basophils % 1.1 CT head FINDINGS: Bifrontal atrophic changes noted, present back in 2005. Involutional changes have progressed since then. No hemorrhage. No mass. Bilateral amado radiata chronic small vessel disease versus small vessel infarcts of indeterminate age. No shift or herniation. Osseous structures are intact. MRI brain: reported normal, L MCA/BATTERY STARTER watershed territory (occipital CVA) on DWI imaging on my viewing Plan: 76 year old female with significant medical hx of COPD, DM, HTN, carotid stenosis, HLD, lung CA (2005) (s/p VALENTIN resection and chemotherapy), CAD s/p CABG (2014), and AFib (on Eliquis) who is presented to the ED via EMS from home with sudden onset of dizziness, nausea, and vomiting just prior to arrival. Patient states that she had an abrupt onset of dizziness, that was somewhat vertiginous, with multiple episodes of nausea and vomiting that followed. The patient is also complaining of palpitations and tachycardia. She denies any fevers, chills, chest pain, or shortness of breath. She was seen by Cardiology and is also being treated for BPPV with Meclezine. MRI brain completed and reported normal but appears to have L occipital infarct on DWI sequence on my viewing. Left message for radiologist to call back and message with Dr. Alphonso Horne Patient on AC since prior to admission and no longer in 24-48hr window of holding AC and therefore can continue. Spoke to Cardiology regarding this. MRA suggested by radiologist, will defer to PCP regarding this. Much better feeling today. Reports minimal dizzyness with head movements but still does have discomfort. I V fluids on board. No sudden head movements. PT being tolerated conservatively
--- NOTE | 2016-08-30 18:35 | CON.ENT ---
Consult Consult Specialty:: ENT Referred by:: Saw Reason for Consultation:: Vertigo - History of Present Illness Chief Complaint: Recent vertigo with Nausea and vomiting that lasts constantly exacerbated by almost any movement, not necessarily in a specific direction. No tinnitus or hearing changes. History of Present Illness: as per previous note - History Source History Provided By: Patient, Medical Record Limitations to Obtaining History: No Limitations - Past Medical History Cardio/Vascular: Yes: AFIB (now in NSR), CAD, HTN Pulmonary: Yes: COPD Psych: Yes: Anxiety Musculoskeletal: Yes: Chronic low back pain Endocrine: Yes: Diabetes Mellitus (partial lobectomy lung CA) - Past Surgical History Past Surgical History: Yes: Bypass (Fem-Fem), CABG, Thoracotomy - Alcohol/Substance Use Hx Alcohol Use: No History of Substance Use: reports: None - Smoking History Smoking history: Former smoker Have you smoked in the past 12 months: No Aproximately how many cigarettes per day: 0 If you are a former smoker, when did you quit?: 8YRS AGO - Social History Usual Living Arrangement: With Spouse ADL: Independent Occupation: retired History of Recent Travel: No Home Medications - Allergies Allergies/Adverse Reactions: Allergies Allergy/AdvReac Type Severity Reaction Status Date / Time No Known Drug Allergies Allergy Verified 08/27/16 19:25 - Home Medications Home Medications: Ambulatory Orders Alprazolam [Xanax] 0.25 mg PO Q6H PRN #0 tablet 11/24/12 Escitalopram Oxalate [Lexapro -] 10 mg PO DAILY 03/15/14 Furosemide [Lasix -] 40 mg PO DAILY 03/15/14 Omeprazole [Prilosec] 20 mg PO DAILY 03/15/14 Atorvastatin Calcium 20 mg PO DAILY 02/16/15 Diltiazem HCl [Cardizem LA] 240 mg PO DAILY 02/16/15 Apixaban [Eliquis] 5 mg PO BID 02/17/15 Metoprolol Succinate [Toprol Xl] 50 mg PO DAILY 02/17/15 Metoprolol Succinate [Toprol Xl -] 25 mg PO HS 08/28/16 Family Disease History - Family Disease History Family Disease History: CA: Father (larynx 58), Other: Mother (CVA 80; hx breast Ca) Physical Exam-ENT Vital Signs: Vital Signs Temperature 98.1 F 08/30/16 14:00 Pulse Rate 90 08/30/16 14:00 Respiratory Rate 18 08/30/16 14:00 Blood Pressure 135/75 08/30/16 14:00 O2 Sat by Pulse Oximetry (%) 98 08/29/16 21:00 Constitutional: Yes: Well Nourished Head: Yes: WNL Face: Yes: WNL Eyes: Yes: Conjunctiva Clear Nose: Yes: WNL Nasal Passage: Yes: WNL Oral/Pharynx: Yes: WNL Outer Ear: Yes: WNL Ear Canal: Yes: WNL Tympanic Membrane: Yes: WNL Neck: Yes: Supple Neurological: Yes: Other (No diplopia. No spontaneous nystagmus) Imaging - Results MRI: Report Reviewed Assessment/Plan Impression/Plan: Vertigo, probably not BPV since not short duration and not just positional. More like viral neuronitis or central. Treat symptomatically and f/u in office
[2016-08-30] MEDS: MECLIZINE HCL 25 MG TABLET (FP) PO PRN (20:18)
[2016-08-30] MEDS: DEXTROSE 5%-0.45% SALINE 1,000 ML IV SCH (20:18)
[2016-08-30] MEDS: ATORVASTATIN CA 20 MG TABLET (FP) PO SCH (21:40)
[2016-08-30] MEDS: METOPROLOL SUCCINATE 25 MG TAB.SR.24H (FP) PO SCH (21:41)
[2016-08-30] MEDS: ALPRAZolam 0.25 MG TABLET PO PRN (21:41)
--- NOTE | 2016-08-30 22:58 | PN ---
Progress Note (short form) - Note Progress Note: CC: afib S: no cp, palps, sob, le edema. dizziness, nausea persists with movement . minimal po intake today. Current Medications Acetaminophen (Tylenol -) 650 mg PO Q6H PRN PRN Reason: FEVER OR PAIN Last Admin: 08/30/16 21:41 Dose: 650 mg Alprazolam (Xanax -) 0.25 mg PO Q8H PRN PRN Reason: ANXIETY Last Admin: 08/30/16 21:41 Dose: 0.25 mg Atorvastatin Calcium (Lipitor -) 20 mg PO HS [facility] Last Admin: 08/30/16 21:40 Dose: 20 mg Diltiazem HCl (Cardizem Cd -) 240 mg PO DAILY [facility] Last Admin: 08/30/16 09:51 Dose: 240 mg Escitalopram Oxalate (Lexapro -) 10 mg PO DAILY [facility] Last Admin: 08/30/16 09:52 Dose: 10 mg Heparin Sodium (Porcine) (Heparin -) 5,000 unit IVPUSH PRN PRN Heparin Sodium (Porcine) (Heparin -) 1,000 unit IVPUSH PRN PRN Dextrose/Sodium Chloride (D5-1/2ns -) 1,000 mls @ 42 mls/hr IV ASDIR TIARA Last Admin: 08/30/16 20:18 Dose: 42 mls/hr Heparin Sodium/Dextrose (Heparin Infusion -) 500 mls @ 20 mls/hr IVPB TITR TIARA ; 1,000 UNITS/HR PRN Reason: Protocol Last Admin: 08/30/16 22:11 Dose: 22 mls/hr Meclizine HCl (Antivert -) 25 mg PO Q6H PRN PRN Reason: NAUSEA AND/OR VOMITING Last Admin: 08/30/16 20:18 Dose: 25 mg Metoprolol Succinate (Toprol Xl -) 50 mg PO DAILY [facility] Last Admin: 08/30/16 09:52 Dose: 50 mg Metoprolol Succinate (Toprol Xl -) 25 mg PO HS [facility] Last Admin: 08/30/16 21:41 Dose: 25 mg Ondansetron HCl (Zofran Injection) 4 mg IVPB Q6H PRN PRN Reason: NAUSEA Last Admin: 08/29/16 12:14 Dose: 4 mg Pantoprazole Sodium (Protonix -) 40 mg PO DAILY [facility] Last Admin: 08/30/16 09:51 Dose: 40 mg Potassium Chloride (K-Dur -) 20 meq PO BID TIARA Last Admin: 08/30/16 21:40 Dose: 20 meq Senna (Senna -) 2 tab PO HS PRN PRN Reason: CONSTIPATION Vital Signs - 24 hr 08/30/16 08/30/16 08/30/16 02:00 05:35 09:00 Temperature 97.7 F 98.2 F Pulse Rate 79 76 Respiratory 18 18 18 Rate Blood Pressure 117/70 136/84 O2 Sat by Pulse 97 Oximetry (%) 08/30/16 08/30/16 10:00 14:00 Temperature 98.7 F 98.1 F Pulse Rate 98 H 90 Respiratory 18 18 Rate Blood Pressure 108/67 135/75 O2 Sat by Pulse Oximetry (%) Intake & Output 08/28/16 08/29/16 08/30/16 08/31/16 07:59 07:59 07:59 07:59 Intake Total 1014 1968 350 Balance 1014 1968 350 Weight 180 lb 180 lb nad, calm JVD flat, neck supple ctab, nl effort irregular, nl s2, s2 no mrg + bs soft ntnd ext without e/c/c + dp/pt aaox3 CBC, BMP 08/30/16 06:05 08/29/16 07:30 EKG: afib pvc, poor baseline. no ischemic changes tele: afib, 100's-110's 05/2016 echo: 1. Atrial fibrillation. 2. The left ventricular size is normal. 3. Overall left ventricular systolic function is normal with, an EF between 60 - 70 %. 4. Unable to completely evaluate regional wall motion abnormality due to technical limitations, however none seen. 5. The right ventricle is normal in size and function; cavity not well seen. 6. Left atrium is moderately dilated by volume. 7. There is mild aortic regurgitation. 8. [id number] mitral regurgitation is present. 9. [id number] tricuspid regurgitation present. 10. Unable to estimate RVSP due to inadequate TR jet spectral doppler profile. 11. The aortic root size is normal; laminar atherosclerotic plaque present. 76 yo with h/o Lung CA, s/p resection and Chemo, Afib, CAD s/p CABG (2014), HTN , HL, DM, COPD, Anxiety, PAD s/p Fem-Fem bypass, carotid stenosis, lung CA (2005 ) (s/p VALENTIN resection and chemotherapy) p/w sudden onset of dizziness, nausea, and vomiting. presyncope - Symptoms of dizziness/nausea very severe. Patient on eliquis for atrial fibrillation. Low suspicion for infarct so didn't hold eliquis, but switched to heparin drip for reversibility. --> Head CT/MRI negative for infarct or bleed. --> will resume eliquis. - neuro/ent consult appreciated. - can hold lasix while on IVF/poor po intake. afib - con't home rate control medications, monitor for need for uptitration. htn - well controlled pad - con't statin, not on ASA (on AC)
[2016-08-30] MEDS: APIXABAN 5 MG TABLET PO SCH (23:28)
[2016-08-31 07:20] LABS: MCH 31.6 pg (25.7-33.7); MCHC 33.9 g/dl (32.0-36.0); MEAN PLT VOLUME 8.7 fl (7.5-11.1); PLATELET COUNT 298 K/MM3 (134-434); RDW 13.2 % (11.6-15.6); WHITE BLOOD COUNT 8.2 K/mm3 (4.0-10.0)
--- NOTE | 2016-08-31 08:37 | CONSULT ---
Consult - History of Present Illness History of Present Illness: 76 year old woman well known to me with history of left ICA occlusion and PAD s/ p femoral stent placement. She is a former smoker. She was admitted after sudden onset of vertigo, nausea nad vomiting. SHe denies any abdominal pain. She is now feeling better. MRI of the brain was unremarkable. Low flow in the left distal ICA was seen. - Past Medical History Cardio/Vascular: Yes: AFIB (now in NSR), CAD, HTN Pulmonary: Yes: COPD Psych: Yes: Anxiety Musculoskeletal: Yes: Chronic low back pain Endocrine: Yes: Diabetes Mellitus (partial lobectomy lung CA) - Past Surgical History Past Surgical History: Yes: Bypass (Fem-Fem), CABG, Thoracotomy - Alcohol/Substance Use Hx Alcohol Use: No History of Substance Use: reports: None - Smoking History Smoking history: Former smoker Have you smoked in the past 12 months: No Aproximately how many cigarettes per day: 0 If you are a former smoker, when did you quit?: 8YRS AGO - Social History Usual Living Arrangement: With Spouse ADL: Independent Occupation: retired History of Recent Travel: No Home Medications - Allergies Allergies/Adverse Reactions: Allergies Allergy/AdvReac Type Severity Reaction Status Date / Time No Known Drug Allergies Allergy Verified 08/27/16 19:25 - Home Medications Home Medications: Ambulatory Orders Alprazolam [Xanax] 0.25 mg PO Q6H PRN #0 tablet 11/24/12 Escitalopram Oxalate [Lexapro -] 10 mg PO DAILY 03/15/14 Furosemide [Lasix -] 40 mg PO DAILY 03/15/14 Omeprazole [Prilosec] 20 mg PO DAILY 03/15/14 Atorvastatin Calcium 20 mg PO DAILY 02/16/15 Diltiazem HCl [Cardizem LA] 240 mg PO DAILY 02/16/15 Apixaban [Eliquis] 5 mg PO BID 02/17/15 Metoprolol Succinate [Toprol Xl] 50 mg PO DAILY 02/17/15 Metoprolol Succinate [Toprol Xl -] 25 mg PO HS 08/28/16 Family Disease History - Family Disease History Family Disease History: CA: Father (larynx 58), Other: Mother (CVA 80; hx breast Ca) Physical Exam Vital Signs: Vital Signs Temperature 97.9 F 08/31/16 06:45 Pulse Rate 88 08/31/16 06:45 Respiratory Rate 20 08/31/16 06:45 Blood Pressure 139/80 08/31/16 06:45 O2 Sat by Pulse Oximetry (%) 97 08/30/16 09:00 Constitutional: Yes: No Distress Eyes: Yes: Conjunctiva Clear, EOM Intact HENT: Yes: WNL Neck: Yes: Supple Cardiovascular: Yes: Pulse Irregular Respiratory: Yes: Regular Gastrointestinal: Yes: Soft Extremities: Yes: WNL Edema: Yes Edema: LLE: Trace, RLE: Trace Neurological: Yes: Alert, Oriented Labs: CBC, BMP 08/31/16 06:00 Assessment/Plan Chronic occlusion of left ICA with no evidence for new CVA or change in right carotid. Symptoms suggest viral illness or middle ear problem.
[2016-08-31 08:58] LABS: CALCIUM 8.7 mg/dL (8.5-10.1); COCKROFT - GAULT 75.905; CREATININE 0.8 mg/dL (0.55-1.02)
[2016-08-31] MEDS ORDERED: PT OWN MED DRAWER 7, Y5N ONE ×2 (09:53→13:47)
[2016-08-31] MEDS: DEXTROSE 5%-0.45% SALINE 1,000 ML IV SCH ×3 (10:00→20:11)
[2016-08-31] MEDS: METOPROLOL SUCCINATE 50 MG TAB.SR.24H (FP) PO SCH (10:00)
[2016-08-31] MEDS: POTASSIUM CHLORIDE TABS 20 MEQ TABLET.ER (FP) PO SCH ×2 (10:00→21:47)
[2016-08-31] MEDS: PANTOPRAZOLE 40 MG TABLET (FP) PO SCH (10:00)
[2016-08-31] MEDS: APIXABAN 5 MG TABLET PO SCH ×2 (10:00→21:47)
[2016-08-31] MEDS: ESCITALOPRAM OXALATE 10 MG TABLET (FP) PO SCH (10:00)
[2016-08-31] MEDS: MECLIZINE HCL 25 MG TABLET (FP) PO PRN ×2 (10:00→15:14)
--- NOTE | 2016-08-31 10:32 | PN ---
Progress Note (short form) - Note Progress Note: Patient seen and examined. Still has some dizziness when moving in bed but generally improved Slight nausea when moving Appetite fair. Had a better day with physical therapy. Reviewed the MRI with a second radiologist and he feels there is no acute infarct that is obviously seen on the report, although they may be a small brain stem infarct not visualized. on exam: Vital Signs Temp 98.6 F 08/31/16 18:00 Pulse 84 08/31/16 18:00 Resp 18 08/31/16 18:00 BP 137/79 08/31/16 18:00 Pulse Ox 95 08/31/16 09:00 Intake & Output 08/30/16 08/31/16 08/31/16 23:59 11:59 23:59 Intake Total 4908 892 3646 Balance 8870 417 3376 Intake: IV 538 500 D5-1/2Ns - 1,000 ml @ 42 450 500 mls/hr IV ASDIR TIARA Rx#: [id number] Heparin Infusion - 500 ml 88 @ 1,000 UNITS/HR 20 mls/ hr IVPB TITR TIARA Rx#: [id number] IVPB 0 Oral 1050 Oral Supplement 600 TPN/PPN 600 Other: Voiding Method Bedpan Bedpan Bedpan # Unmeasured Voids Void 2 1 Bowel Movement Yes # Bowel Movements 1 patient is alert Feels slightly nauseated when I check for nystagmus. Chest clear. Heart regular. Extremities no pedal edema. Abnormal Lab Results 08/31/16 06:00 PTT (Actin FS) 34.9 H D impression: Vertigo and nausea. Possible viral labyrinthitis. Cannot rule out small brain stem infarct not seen on current MRI. Peripheral vascular disease Femorofemoral bypass ASHD Hypertension. 100% blockage carotid left side chronic Diabetes mellitus. Plan: Continue PT IV fluid for now until her eating is back to normal. Will probably need SNF post discharge Problem List - Problems (1) Vertigo Code(s): R42 - DIZZINESS AND GIDDINESS (2) Afib Code(s): I48.91 - UNSPECIFIED ATRIAL FIBRILLATION Qualifiers: Qualified Code(s): I48.2 - Chronic atrial fibrillation (3) HTN (hypertension) Code(s): I10 - ESSENTIAL (PRIMARY) HYPERTENSION Qualifiers: Qualified Code(s): I10 - Essential (primary) hypertension (4) CAD (coronary artery disease) Code(s): I25.10 - ATHSCL HEART DISEASE OF [place] CORONARY ARTERY W/O ANG PCTRS (5) Intractable vomiting with nausea Code(s): R11.2 - NAUSEA WITH VOMITING, UNSPECIFIED Qualifiers: Qualified Code(s): R11.2 - Nausea with vomiting, unspecified (6) COPD (chronic obstructive pulmonary disease) Code(s): J44.9 - CHRONIC OBSTRUCTIVE PULMONARY DISEASE, UNSPECIFIED (7) Carotid stenosis Code(s): I65.29 - OCCLUSION AND STENOSIS OF UNSPECIFIED CAROTID ARTERY (8) Diabetes Code(s): E11.9 - TYPE 2 DIABETES MELLITUS WITHOUT COMPLICATIONS
--- NOTE | 2016-08-31 13:59 | PN ---
Progress Note (short form) - Note Progress Note: Neurology History of Present Illness Patient is a 76 year old female with significant medical hx of COPD, DM, HTN, carotid stenosis, HLD, lung CA (2005) (s/p VALENTIN resection and chemotherapy), CAD s/p CABG (2014), and AFib (on Eliquis) who is presented to the ED via EMS from home with sudden onset of dizziness, nausea, and vomiting just prior to arrival. Patient states that she had an abrupt onset of dizziness, that was somewhat vertiginous, with multiple episodes of nausea and vomiting that followed. The patient is also complaining of palpitations and tachycardia. She denies any fevers, chills, chest pain, or shortness of breath. She was seen by Cardiology and is also being treated for BPPV with Meclezine. MRI brain completed and reported normal but appears to have L occipital infarct on DWI sequence on my viewing. Patient on AC since prior to admission and no longer in 24-48hr window of holding AC and therefore can continue. Reached out to radiology regarding images and for review but did not addendum or receive response. Dr. Giraldo consulted on case and CD showed full occlusion of L ICA and therefore did not recommend surgical intervention. Patient back on Eliquis. Active Medications Acetaminophen (Tylenol -) 650 mg PO Q6H PRN PRN Reason: FEVER OR PAIN Last Admin: 08/30/16 21:41 Dose: 650 mg Alprazolam (Xanax -) 0.25 mg PO Q8H PRN PRN Reason: ANXIETY Last Admin: 08/30/16 21:41 Dose: 0.25 mg Apixaban (Eliquis -) 5 mg PO BID [facility] Last Admin: 08/31/16 10:00 Dose: 5 mg Atorvastatin Calcium (Lipitor -) 20 mg PO HS [facility] Last Admin: 08/30/16 21:40 Dose: 20 mg Diltiazem HCl (Cardizem Cd -) 240 mg PO DAILY [facility] Last Admin: 08/31/16 10:00 Dose: 240 mg Escitalopram Oxalate (Lexapro -) 10 mg PO DAILY [facility] Last Admin: 08/31/16 10:00 Dose: 10 mg Dextrose/Sodium Chloride (D5-1/2ns -) 1,000 mls @ 42 mls/hr IV ASDIR [facility] Last Admin: 08/31/16 10:00 Dose: Not Given Meclizine HCl (Antivert -) 25 mg PO Q6H PRN PRN Reason: NAUSEA AND/OR VOMITING Last Admin: 08/31/16 10:00 Dose: 25 mg Metoprolol Succinate (Toprol Xl -) 50 mg PO DAILY [facility] Last Admin: 08/31/16 10:00 Dose: 50 mg Metoprolol Succinate (Toprol Xl -) 25 mg PO HS [facility] Last Admin: 08/30/16 21:41 Dose: 25 mg Ondansetron HCl (Zofran Injection) 4 mg IVPB Q6H PRN PRN Reason: NAUSEA Last Admin: 08/29/16 12:14 Dose: 4 mg Pantoprazole Sodium (Protonix -) 40 mg PO DAILY [facility] Last Admin: 08/31/16 10:00 Dose: 40 mg Potassium Chloride (K-Dur -) 20 meq PO BID [facility] Last Admin: 08/31/16 10:00 Dose: 20 meq Senna (Senna -) 2 tab PO HS PRN PRN Reason: CONSTIPATION *Physical Exam Vital Signs Temperature 97.9 F 08/31/16 09:41 Pulse Rate 88 08/31/16 09:41 Respiratory Rate 17 08/31/16 09:41 Blood Pressure 119/85 08/31/16 09:41 O2 Sat by Pulse Oximetry (%) 95 08/31/16 09:00 Well developed, well nourished. Awake and alert. Diaphoretic. Moderate distress. HEENT: Normocephalic, atraumatic. PERRLA, EOMI. No conjunctival pallor. Sclera are non- icteric. Moist mucous membranes. Oropharynx is clear. NECK: Supple. Full ROM. No JVD. Carotid pulses 2+ and symmetric, without bruits. No thyromegaly. No lymphadenopathy. CARDIOVASCULAR: Tachycardic. Irregularly irregular. No murmurs, rubs, or gallops. Distal pulses are 2+ and symmetric. PULMONARY: No evidence of respiratory distress. Lungs clear to auscultation bilaterally. No wheezing, rales or rhonchi. ABDOMINAL: Protuberant. Soft. Non-tender. Non-distended. No rebound or guarding. No organomegaly. Normoactive bowel sounds. MUSCULOSKELETAL: Normal range of motion at all joints. No bony deformities or tenderness. No CVA tenderness. EXTREMITIES: No cyanosis. No clubbing. No edema. No calf tenderness. SKIN: Warm and dry. Normal capillary refill. No rashes. No jaundice. NEUROLOGICAL: Alert, awake, appropriate. Cranial nerves 2-12 intact. Normal speech. Toes are down-going bilaterally. PSYCHIATRIC: Cooperative. Good eye contact. Appropriate mood and affect. (Lawson,Carmen) CBCD WBC 8.2 K/mm3 (4.0-10.0) 08/31/16 06:00 RBC 4.47 M/mm3 (3.60-5.2) 08/31/16 06:00 Hgb 14.1 GM/dL (10.7-15.3) 08/31/16 06:00 Hct 41.6 % (32.4-45.2) 08/31/16 06:00 MCV 93.0 fl (80-96) 08/31/16 06:00 MCHC 33.9 g/dl (32.0-36.0) 08/31/16 06:00 RDW 13.2 % (11.6-15.6) 08/31/16 06:00 Plt Count 298 K/MM3 (134-434) 08/31/16 06:00 MPV 8.7 fl (7.5-11.1) 08/31/16 06:00 CMP Sodium 141 mmol/L (136-145) 08/31/16 06:00 Potassium 3.6 mmol/L (3.5-5.1) 08/31/16 06:00 Chloride 103 mmol/L (98-107) 08/31/16 06:00 Carbon Dioxide 28 mmol/L (21-32) 08/31/16 06:00 Anion Gap 10 (8-16) 08/31/16 06:00 BUN 11 mg/dL (7-18) D 08/31/16 06:00 Creatinine 0.8 mg/dL (0.55-1.02) 08/31/16 06:00 Creat Clearance w eGFR > 60 (>60) 08/27/16 19:55 Calcium 8.7 mg/dL (8.5-10.1) 08/31/16 06:00 Total Bilirubin 0.4 mg/dL (0.2-1.0) D 08/27/16 19:55 AST 22 U/L (15-37) D 08/27/16 19:55 ALT 30 U/L (12-78) 08/27/16 19:55 Alkaline Phosphatase 82 U/L (45-117) D 08/27/16 19:55 Total Protein 6.6 g/dl (6.4-8.2) 08/27/16 19:55 Albumin 3.3 g/dl (3.4-5.0) L 08/27/16 19:55 CT head FINDINGS: Bifrontal atrophic changes noted, present back in 2005. Involutional changes have progressed since then. No hemorrhage. No mass. Bilateral amado radiata chronic small vessel disease versus small vessel infarcts of indeterminate age. No shift or herniation. Osseous structures are intact. MRI brain: reported normal, L MCA/[employer] [place] (occipital CVA) on DWI imaging on my viewing Plan: 76 year old female with significant medical hx of COPD, DM, HTN, carotid stenosis, HLD, lung CA (2005) (s/p VLAENTIN resection and chemotherapy), CAD s/p CABG (2014), and AFib (on Eliquis) who is presented to the ED via EMS from home with sudden onset of dizziness, nausea, and vomiting just prior to arrival. Patient states that she had an abrupt onset of dizziness, that was somewhat vertiginous, with multiple episodes of nausea and vomiting that followed. Symptoms now improved and stable. Patient possibly going to rehab on Saturday She was seen by Cardiology and is back on [facility] MRI brain completed and reported normal but appears to have L occipital infarct on DWI sequence on my viewing. Left message for radiologist to call back and message but no addendum or response Dr Giraldo consulted and deferred surgical intervention Much better feeling today. Reports minimal dizzyness with head movements and improving IV fluids on board. No sudden head movements. PT being tolerated conservatively For rehab placement saturday
[2016-08-31] MEDS: ACETAMINOPHEN 325 MG TABLET (FP) PO PRN ×2 (15:15→21:49)
[2016-08-31] MEDS: ATORVASTATIN CA 20 MG TABLET (FP) PO SCH (21:47)
[2016-08-31] MEDS: METOPROLOL SUCCINATE 25 MG TAB.SR.24H (FP) PO SCH (21:47)
[2016-08-31] MEDS: ALPRAZolam 0.25 MG TABLET PO PRN (21:49)
[2016-09-01 08:33] LABS: MCH 31.1 pg (25.7-33.7); MEAN CELL VOLUME 94.1 fl (80-96); MEAN PLT VOLUME 8.9 fl (7.5-11.1); PLATELET COUNT 295 K/MM3 (134-434); RDW 13.4 % (11.6-15.6); WHITE BLOOD COUNT 8.1 K/mm3 (4.0-10.0)
[2016-09-01] MEDS ORDERED: PT OWN MED DRAWER 7, Y5N ONE ×2 (09:35→21:31)
[2016-09-01] MEDS: METOPROLOL SUCCINATE 50 MG TAB.SR.24H (FP) PO SCH (09:37)
[2016-09-01] MEDS: APIXABAN 5 MG TABLET PO SCH ×2 (09:37→21:35)
[2016-09-01] MEDS: ESCITALOPRAM OXALATE 10 MG TABLET (FP) PO SCH (09:37)
[2016-09-01] MEDS: POTASSIUM CHLORIDE TABS 20 MEQ TABLET.ER (FP) PO SCH ×2 (09:37→21:35)
[2016-09-01] MEDS: PANTOPRAZOLE 40 MG TABLET (FP) PO SCH (09:37)
[2016-09-01] MEDS: MECLIZINE HCL 25 MG TABLET (FP) PO PRN (09:40)
--- NOTE | 2016-09-01 11:06 | PN ---
Progress Note (short form) - Note Progress Note: Patient seen and examined Chart reviewed at length. Currently sitting up in bed, alert and appropriate. No further vertigo, nausea or vomiting, but became queasy with extreme lateral gaze. Denies new chest discomfort, palpitations or dyspnea. Labs, radiologic procedures and web development consultant notes reviewed Selected Entries 08/31/16 09/01/16 21:00 06:00 Temperature 98.3 F Pulse Rate 82 Respiratory 18 Rate Blood Pressure 140/86 O2 Sat by Pulse 95 Oximetry (%) Oxygen Delivery Room Air Method Laboratory Tests 08/27/16 08/29/16 08/31/16 19:55 07:30 06:00 WBC Hgb Hct Plt Count PTT (Actin FS) Sodium 141 Potassium 3.6 Chloride 103 Carbon Dioxide 28 BUN 11 D Creatinine 0.8 Random Glucose 106 Calcium 8.7 Albumin 3.3 L TSH 1.72 D 09/01/16 09/01/16 07:00 07:00 WBC 8.1 Hgb 13.9 Hct 42.2 Plt Count 295 PTT (Actin FS) 39.7 H Sodium Potassium Chloride Carbon Dioxide BUN Creatinine Random Glucose Calcium Albumin TSH Chest Clear Cor Irregularly Irregular Abd Soft Non-tender No mass Bowel sounds increased Ext No phlebitis No edema Neuro No new deficit Assessment and Plan Vertigo Likely BPPV, mostly resolved Work-up reviewed Nausea and Vomiting c/w above diagnosis Resolved DM Stable COPD Stable Former smoker HTN Stable Carotid Stenosis Occluded Left ICA Seen by Neuro and Dr Giraldo Peripheral Vascular Disease Left to right Femoral bypass/stent HTN Stable ASHD CABAG 2014 AFib On A/C with Eliquis Lung Cancer VALENTIN resection and chemotherapy 2006 Former smoker Hypokalemia 3.1>>3.6 Monitor HPL Stable Continue current Rx
[2016-09-01] MEDS: SIMETHICONE 80 MG TAB.CHEW (FP) PO PRN (12:44)
[2016-09-01] MEDS: ACETAMINOPHEN 325 MG TABLET (FP) PO PRN ×2 (12:44→21:34)
[2016-09-01] MEDS: DEXTROSE 5%-0.45% SALINE 1,000 ML IV SCH (17:09)
[2016-09-01] MEDS: METOPROLOL SUCCINATE 25 MG TAB.SR.24H (FP) PO SCH (21:35)
[2016-09-01] MEDS: ATORVASTATIN CA 20 MG TABLET (FP) PO SCH (21:35)
[2016-09-01] MEDS: ALPRAZolam 0.25 MG TABLET PO PRN (21:35)
[2016-09-02 07:38] LABS: ALBUMIN 2.9 g/dl (3.4-5.0); ANION GAP 7 (8-16); BILIRUBIN,TOTAL 0.7 mg/dL (0.2-1.0); CALCIUM 8.8 mg/dL (8.5-10.1); CO2 26 mmol/L (21-32); COCKROFT - GAULT 67.4645; CREATININE 0.9 mg/dL (0.55-1.02); GLUCOSE,RANDOM 104 mg/dL (74-106); MAGNESIUM 1.5 mg/dL (1.8-2.4); SGOT/AST 40 U/L (15-37); SGPT/ALT 56 U/L (12-78)
[2016-09-02 07:39] LABS: ALK PHOS 79 U/L (45-117)
[2016-09-02 08:19] LABS: BASOPHIL 0.7 % (0-2.0); EOSINOPHIL 2.2 % (0-4.5); MCH 31.4 pg (25.7-33.7); MCHC 33.8 g/dl (32.0-36.0); MEAN CELL VOLUME 92.9 fl (80-96); MEAN PLT VOLUME 8.9 fl (7.5-11.1); NEUTROPHILS 65.7 % (42.8-82.8); PLATELET COUNT 330 K/MM3 (134-434); RDW 13.5 % (11.6-15.6); WHITE BLOOD COUNT 7.9 K/mm3 (4.0-10.0)
[2016-09-02] MEDS: ESCITALOPRAM OXALATE 10 MG TABLET (FP) PO SCH (09:22)
[2016-09-02] MEDS: APIXABAN 5 MG TABLET PO SCH ×2 (09:22→21:19)
[2016-09-02] MEDS: POTASSIUM CHLORIDE TABS 20 MEQ TABLET.ER (FP) PO SCH ×2 (09:22→21:19)
[2016-09-02] MEDS: METOPROLOL SUCCINATE 50 MG TAB.SR.24H (FP) PO SCH (09:22)
[2016-09-02] MEDS: PANTOPRAZOLE 40 MG TABLET (FP) PO SCH (09:22)
[2016-09-02] MEDS: SIMETHICONE 80 MG TAB.CHEW (FP) PO PRN (09:27)
--- NOTE | 2016-09-02 09:41 | PN ---
Progress Note (short form) - Note Progress Note: Patient seen and examined Chart reviewed. Currently sitting up in bed, alert and appropriate. No further vertigo, nausea or vomiting, but felt some weakness getting out of bed yesterday. Denies new chest discomfort, palpitations or dyspnea. Labs, radiologic procedures and service loss control consultant notes reviewed Selected Entries 09/01/16 09/02/16 21:00 06:00 Temperature 98 F Pulse Rate 86 Respiratory 18 Rate Blood Pressure 148/80 O2 Sat by Pulse 95 Oximetry (%) Oxygen Delivery Room Air Method Laboratory Tests 08/29/16 09/02/16 09/02/16 07:30 06:20 06:20 WBC 7.9 Hgb 14.1 Hct 41.8 Plt Count 330 PTT (Actin FS) 41.8 H Sodium Potassium Chloride Carbon Dioxide BUN Creatinine Random Glucose Calcium Magnesium Total Bilirubin AST ALT Alkaline Phosphatase Total Protein Albumin TSH 1.72 D 09/02/16 06:20 WBC Hgb Hct Plt Count PTT (Actin FS) Sodium 142 Potassium 4.5 D Chloride 109 H Carbon Dioxide 26 BUN 11 Creatinine 0.9 Random Glucose 104 Calcium 8.8 Magnesium 1.5 L Total Bilirubin 0.7 D AST 40 H D ALT 56 D Alkaline Phosphatase 79 Total Protein 6.0 L Albumin 2.9 L TSH Chest Clear Cor Irregularly Irregular Abd Soft Non-tender No mass Bowel sounds increased Ext No phlebitis No edema Neuro No new deficit Assessment and Plan Vertigo Likely BPPV, mostly resolved Work-up reviewed Nausea and Vomiting c/w above diagnosis Resolved DM Stable COPD Stable Former smoker HTN Stable Carotid Stenosis Occluded Left ICA Seen by Neuro and Dr Giraldo Peripheral Vascular Disease Left to right Femoral bypass/stent HTN Stable Hypomagnesemia 1.5 Replete Possibly related to PPI use ASHD CABAG 2014 AFib On A/C with Eliquis Lung Cancer VALENTIN resection and chemotherapy 2006 Former smoker Hypokalemia 3.1>>3.6>>4.5 Monitor Refused today's dose HPL Stable Continue current Rx Add Mg
[2016-09-02] MEDS: MAGNESIUM CL 64 MG TABLET.SA PO SCH (12:17)
[2016-09-02] MEDS ORDERED: PT OWN MED DRAWER 7, Y5N ONE (20:25)
[2016-09-02] MEDS: ATORVASTATIN CA 20 MG TABLET (FP) PO SCH (21:18)
[2016-09-02] MEDS: ACETAMINOPHEN 325 MG TABLET (FP) PO PRN (21:18)
[2016-09-02] MEDS: METOPROLOL SUCCINATE 25 MG TAB.SR.24H (FP) PO SCH (21:19)
[2016-09-02] MEDS: ALPRAZolam 0.25 MG TABLET PO PRN (21:19)
[2016-09-03 08:03] LABS: MCH 31.8 pg (25.7-33.7); MEAN CELL VOLUME 93.5 fl (80-96); MEAN PLT VOLUME 8.5 fl (7.5-11.1); PLATELET COUNT 321 K/MM3 (134-434); RDW 13.7 % (11.6-15.6); WHITE BLOOD COUNT 8.3 K/mm3 (4.0-10.0)
[2016-09-03] MEDS ORDERED: PT OWN MED DRAWER 7, Y5N ONE (09:37)
--- NOTE | 2016-09-03 09:45 | DS ---
Physical Examination Vital Signs: Vital Signs Temperature 98.6 F 09/03/16 09:27 Pulse Rate 101 H 09/03/16 09:27 Respiratory Rate 18 09/03/16 09:27 Blood Pressure 143/72 09/03/16 09:27 O2 Sat by Pulse Oximetry (%) 95 09/02/16 21:00 Constitutional: Yes: Calm Eyes: Yes: Conjunctiva Clear Cardiovascular: Yes: Pulse Irregular Respiratory: Yes: Regular, Diminished Gastrointestinal: Yes: Soft, Hyperactive Bowel Sounds Edema: No Neurological: Yes: Alert, Oriented, Unsteady Gait (when walking due to intermittent dizzyness.) Labs: CBC, BMP 09/03/16 06:30 09/02/16 06:20 Discharge Summary Reason For Visit: AFIB VERTIGO HYPERTENSION Current Active Problems Afib (Acute) HTN (hypertension) (Acute) Intractable vomiting with nausea (Acute) Vertigo (Acute) Carotid Artery Stenosis Procedures: Principal: MRI ,ENT nd Vascular and Cardiology consults Other Procedures: PT and followup lab Hospital Course: Slow to improve; will need SNF post hospital. Condition: Improved - Instructions Diet, Activity, Other Instructions: No added salt PT twice a day. Repeat magnesium level day after admission. Followup Dr. Spring within 2 weeks after admission to SNF. Referrals: Cosme Spring MD [Primary Care Provider] - Disposition: [facility] - Home Medications Comprehensive Discharge Medication List: Ambulatory Orders Alprazolam [Xanax] 0.25 mg PO Q6H PRN #0 tablet 11/24/12 Escitalopram Oxalate [Lexapro -] 10 mg PO DAILY 03/15/14 Furosemide [Lasix -] 40 mg PO DAILY 03/15/14 Omeprazole [Prilosec] 20 mg PO DAILY 03/15/14 Atorvastatin Calcium 20 mg PO DAILY 02/16/15 Diltiazem HCl [Cardizem LA] 240 mg PO DAILY 02/16/15 Apixaban [Eliquis] 5 mg PO BID 02/17/15 Metoprolol Succinate [Toprol Xl] 50 mg PO DAILY 02/17/15 Metoprolol Succinate [Toprol XL -] 25 mg PO HS 08/28/16 Acetaminophen [Tylenol .Regular Strength -] 650 mg PO Q6H PRN #0 tablet Magnesium Chloride [Slow-Mag -] 128 mg PO DAILY tab 09/03/16 Meclizine HCl [Antivert -] 25 mg PO Q4H PRN #0 tablet 09/03/16 Potassium Chloride [K-Dur -] 20 meq PO BID tab 09/03/16 Sennosides [Senna -] 2 tab PO HS PRN #0 tablet 09/03/16 Simethicone [Mylicon -] 80 mg PO QID PRN #0 tab.chew 09/03/16
[2016-09-03] MEDS: ACETAMINOPHEN 325 MG TABLET (FP) PO PRN (09:52)
[2016-09-03] MEDS: APIXABAN 5 MG TABLET PO SCH (09:55)
[2016-09-03] MEDS: METOPROLOL SUCCINATE 50 MG TAB.SR.24H (FP) PO SCH (09:55)
[2016-09-03] MEDS: PANTOPRAZOLE 40 MG TABLET (FP) PO SCH (09:55)
[2016-09-03] MEDS: POTASSIUM CHLORIDE TABS 20 MEQ TABLET.ER (FP) PO SCH (09:55)
[2016-09-03] MEDS: ESCITALOPRAM OXALATE 10 MG TABLET (FP) PO SCH (09:56)
[2016-09-03] MEDS: MAGNESIUM CL 64 MG TABLET.SA PO SCH (09:56)
[2016-09-03] MEDS: SIMETHICONE 80 MG TAB.CHEW (FP) PO PRN (09:59)
[2016-09-03] MEDS ORDERED: POTASSIUM CHLORIDE TABS 20 MEQ TABLET.ER (FP) PO SCH (10:00)
[2016-09-03] MEDS: MECLIZINE HCL 25 MG TABLET (FP) PO PRN (11:38)
--- NOTE | 2016-09-03 12:21 | PN ---
Progress Note (short form) - Note Progress Note: Neurology History of Present Illness Patient is a 76 year old female with significant medical hx of COPD, DM, HTN, carotid stenosis, HLD, lung CA (2005) (s/p VALENTIN resection and chemotherapy), CAD s/p CABG (2014), and AFib (on Eliquis) who is presented to the ED via EMS from home with sudden onset of dizziness, nausea, and vomiting just prior to arrival. Patient states that she had an abrupt onset of dizziness, that was somewhat vertiginous, with multiple episodes of nausea and vomiting that followed. The patient is also complaining of palpitations and tachycardia. She denies any fevers, chills, chest pain, or shortness of breath. She was seen by Cardiology and is also being treated for BPPV with Meclezine. MRI brain completed and reported normal but appears to have L occipital infarct on DWI sequence on my viewing. Patient on AC since prior to admission and no longer in 24-48hr window of holding AC and therefore can continue. Reached out to radiology regarding images and for review but did not addendum or receive response. Dr. Giraldo consulted on case and CD showed full occlusion of L ICA and therefore did not recommend surgical intervention. Patient back on Eliquis. Nurse informed me that radiologist reviewed images and there was no CVA noted. Patient for transfer to rehab today. Active Medications Acetaminophen (Tylenol -) 650 mg PO Q6H PRN PRN Reason: FEVER OR PAIN Last Admin: 09/03/16 09:52 Dose: 650 mg Alprazolam (Xanax -) 0.25 mg PO Q8H PRN PRN Reason: ANXIETY Last Admin: 09/02/16 21:19 Dose: 0.25 mg Apixaban (Eliquis -) 5 mg PO BID [facility] Last Admin: 09/03/16 09:55 Dose: 5 mg Atorvastatin Calcium (Lipitor -) 20 mg PO HS [facility] Last Admin: 09/02/16 21:18 Dose: 20 mg Diltiazem HCl (Cardizem Cd -) 240 mg PO DAILY [facility] Last Admin: 09/03/16 09:55 Dose: 240 mg Escitalopram Oxalate (Lexapro -) 10 mg PO DAILY [facility] Last Admin: 09/03/16 09:56 Dose: 10 mg Magnesium Chloride (Slow-Mag -) 128 mg PO DAILY [facility] Last Admin: 09/03/16 09:56 Dose: 128 mg Meclizine HCl (Antivert -) 25 mg PO Q4H PRN PRN Reason: NAUSEA AND/OR VOMITING Last Admin: 09/03/16 11:38 Dose: 25 mg Metoprolol Succinate (Toprol Xl -) 50 mg PO DAILY [facility] Last Admin: 09/03/16 09:55 Dose: 50 mg Metoprolol Succinate (Toprol Xl -) 25 mg PO HS [facility] Last Admin: 09/02/16 21:19 Dose: 25 mg Ondansetron HCl (Zofran Injection) 4 mg IVPB Q6H PRN PRN Reason: NAUSEA Last Admin: 08/29/16 12:14 Dose: 4 mg Pantoprazole Sodium (Protonix -) 40 mg PO DAILY [facility] Last Admin: 09/03/16 09:55 Dose: 40 mg Potassium Chloride (K-Dur -) 20 meq PO DAILY [facility] Last Admin: 09/03/16 10:55 Dose: Not Given Senna (Senna -) 2 tab PO HS PRN PRN Reason: CONSTIPATION Simethicone (Mylicon -) 80 mg PO QID PRN PRN Reason: GAS Last Admin: 09/03/16 09:59 Dose: 80 mg *Physical Exam Vital Signs Period Temp Pulse Resp BP Sys/Medley Pulse Ox Last 24 Hr 97.8 F-98.7 F 77-101 12-18 134-167/63-92 95-96 Well developed, well nourished. Awake and alert. Diaphoretic. Moderate distress. HEENT: Normocephalic, atraumatic. PERRLA, EOMI. No conjunctival pallor. Sclera are non- icteric. Moist mucous membranes. Oropharynx is clear. NECK: Supple. Full ROM. No JVD. Carotid pulses 2+ and symmetric, without bruits. No thyromegaly. No lymphadenopathy. CARDIOVASCULAR: Tachycardic. Irregularly irregular. No murmurs, rubs, or gallops. Distal pulses are 2+ and symmetric. PULMONARY: No evidence of respiratory distress. Lungs clear to auscultation bilaterally. No wheezing, rales or rhonchi. ABDOMINAL: Protuberant. Soft. Non-tender. Non-distended. No rebound or guarding. No organomegaly. Normoactive bowel sounds. MUSCULOSKELETAL: Normal range of motion at all joints. No bony deformities or tenderness. No CVA tenderness. EXTREMITIES: No cyanosis. No clubbing. No edema. No calf tenderness. SKIN: Warm and dry. Normal capillary refill. No rashes. No jaundice. NEUROLOGICAL: Alert, awake, appropriate. Cranial nerves 2-12 intact. Normal speech. Toes are down-going bilaterally. PSYCHIATRIC: Cooperative. Good eye contact. Appropriate mood and affect. CBCD WBC 8.3 K/mm3 (4.0-10.0) 09/03/16 06:30 RBC 4.58 M/mm3 (3.60-5.2) 09/03/16 06:30 Hgb 14.6 GM/dL (10.7-15.3) 09/03/16 06:30 Hct 42.8 % (32.4-45.2) 09/03/16 06:30 MCV 93.5 fl (80-96) 09/03/16 06:30 MCHC 34.0 g/dl (32.0-36.0) 09/03/16 06:30 RDW 13.7 % (11.6-15.6) 09/03/16 06:30 Plt Count 321 K/MM3 (134-434) 09/03/16 06:30 MPV 8.5 fl (7.5-11.1) 09/03/16 06:30 CMP Sodium 142 mmol/L (136-145) 09/02/16 06:20 Potassium 4.5 mmol/L (3.5-5.1) D 09/02/16 06:20 Chloride 109 mmol/L (98-107) H 09/02/16 06:20 Carbon Dioxide 26 mmol/L (21-32) 09/02/16 06:20 Anion Gap 7 (8-16) L 09/02/16 06:20 BUN 11 mg/dL (7-18) 09/02/16 06:20 Creatinine 0.9 mg/dL (0.55-1.02) 09/02/16 06:20 Creat Clearance w eGFR > 60 (>60) 09/02/16 06:20 Calcium 8.8 mg/dL (8.5-10.1) 09/02/16 06:20 Total Bilirubin 0.7 mg/dL (0.2-1.0) D 09/02/16 06:20 AST 40 U/L (15-37) H D 09/02/16 06:20 ALT 56 U/L (12-78) D 09/02/16 06:20 Alkaline Phosphatase 79 U/L (45-117) 09/02/16 06:20 Total Protein 6.0 g/dl (6.4-8.2) L 09/02/16 06:20 Albumin 2.9 g/dl (3.4-5.0) L 09/02/16 06:20 CT head FINDINGS: Bifrontal atrophic changes noted, present back in 2005. Involutional changes have progressed since then. No hemorrhage. No mass. Bilateral amado radiata chronic small vessel disease versus small vessel infarcts of indeterminate age. No shift or herniation. Osseous structures are intact. MRI brain: reported normal, L MCA/FACULTY PHYSICIAN watershed territory (occipital CVA) on DWI imaging on my viewing Plan: 76 year old female with significant medical hx of COPD, DM, HTN, carotid stenosis, HLD, lung CA (2005) (s/p VALENTIN resection and chemotherapy), CAD s/p CABG (2014), and AFib (on Eliquis) who is presented to the ED via EMS from home with sudden onset of dizziness, nausea, and vomiting just prior to arrival. Patient states that she had an abrupt onset of dizziness, that was somewhat vertiginous, with multiple episodes of nausea and vomiting that followed. Symptoms now improved and stable. Patient possibly going to rehab today She was seen by Cardiology and [facility] reviewed by radiologist per nurse and no infarct. Dr Giraldo consulted and deferred surgical intervention Much better feeling today. No sudden head movements. PT being tolerated conservatively Mecelezine PRN when needed
[2016-09-03 14:14] VITALS: BP 148/87; PULSE 119; TEMP 98.3
--- NOTE | 2016-09-04 11:48 | EKG ---
Test Reason : Blood Pressure : / mmHG Vent. Rate : 102 BPM Atrial Rate : 326 BPM P-R Int : 000 ms QRS Dur : 082 ms QT Int : 364 ms P-R-T Axes : 000 028 033 degrees QTc Int : 474 ms ATRIAL FIBRILLATION WITH RAPID VENTRICULAR RESPONSE NONSPECIFIC ST AND T WAVE ABNORMALITY ABNORMAL ECG WHEN COMPARED WITH ECG OF 27-AUG-2016 19:27, NONSPECIFIC T WAVE ABNORMALITY NO LONGER EVIDENT IN ANTERIOR LEADS QT HAS SHORTENED CLINICAL CORRELATION IS RECOMMENDED Confirmed by MODESTA JUNIOR, PARVEZ ([id number]) on 09/04/2016 11:47:58 AM Referred By: Confirmed By:PARVEZ BYERS MD
== END 2016-09-03 15:03 | DRG 149 ==
LOC: JER 19:07 → JERBED 08-28 01:30 → J5S 08-28 15:00
PROVIDERS: ADMIT Internal Medicine; ATTEND Internal Medicine
DX: H83.09 Labyrinthitis, unspecified ear (principal); J44.9 Chronic obstructive pulmonary disease, unspecified; E11.9 Type 2 diabetes mellitus without complications; E78.5 Hyperlipidemia, unspecified; I25.10 Atherosclerotic heart disease of native coronary artery without angina pectoris; I48.91 Unspecified atrial fibrillation; K21.9 Gastro-esophageal reflux disease without esophagitis; E87.6 Hypokalemia; I48.2 Chronic atrial fibrillation; I65.22 Occlusion and stenosis of left carotid artery; R11.2 Nausea with vomiting, unspecified; F41.9 Anxiety disorder, unspecified; M19.90 Unspecified osteoarthritis, unspecified site; M54.5 Low back pain; I73.9 Peripheral vascular disease, unspecified; I11.0 Hypertensive heart disease with heart failure; I50.9 Heart failure, unspecified; Z95.1 Presence of aortocoronary bypass graft; Z85.118 Personal history of other malignant neoplasm of bronchus and lung; Z87.891 Personal history of nicotine dependence
CPT/HCPCS: 36415; 70450-TC; 70551-TC; 71010-TC; 80048; 80053; 81003; 81015; 82550; 83735; 84443; 84484; 85025; 85027; 85610; 85730; 90670; 93005; 93010; 93880-TC; 94010; 97116-GP; 97161; 99285-25; J1644

== ENCOUNTER 2018-10-01 18:47 | Inpatient (IN) | payer OTHER, MEDICARE ==
--- NOTE | 2018-10-01 19:16 | PDOC ---
History of Present Illness - General Stated Complaint: SICK Time Seen by Provider: 10/01/18 19:02 - History of Present Illness Initial Comments: The pt is a 78F w/ a history of a-fib (Eliquis), HTN, PAD s/p R to L fem-fem bypass, COPD who presents for evaluation for concern of choledocholithiasis noted on an outpatient CT. The pt was sent in for evaluation by Dr. Spring and likely ERCP in the AM. She reports occasional epigastric cramping and bloating with meals but denies persistent abdominal pain, N/V, jaundice for icterus, fevers/chills, chest pain, change in her stool, dysuria, or blood in her urine or stool. 10/01/18 20:11 Past History - Past Medical History Allergies/Adverse Reactions: Allergies Allergy/AdvReac Type Severity Reaction Status Date / Time No Known Drug Allergies Allergy Verified 10/01/18 19:23 Home Medications: Ambulatory Orders Alprazolam [Xanax] 0.25 mg PO Q6H PRN #0 tablet 11/24/12 Escitalopram Oxalate [Lexapro -] 20 mg PO DAILY 03/15/14 Omeprazole [Prilosec] 20 mg PO DAILY 03/15/14 Diltiazem HCl [Cardizem LA] 300 mg PO DAILY 02/16/15 Apixaban [Eliquis] 5 mg PO BID 02/17/15 Metoprolol Succinate [Toprol Xl] 50 mg PO HS 02/17/15 Metoprolol Succinate [Toprol XL -] 25 mg PO DAILY 08/28/16 Acetaminophen [Tylenol .Regular Strength -] 650 mg PO Q6H PRN #0 tablet Magnesium Chloride [Slow-Mag -] 128 mg PO DAILY tab 09/03/16 Potassium Chloride [K-Dur -] 20 meq PO BID tab 09/03/16 Simethicone [Mylicon -] 80 mg PO QID PRN #0 tab.chew 09/03/16 Alprazolam [Xanax] 0.25 mg PO DAILY 10/01/18 Azelastine HCl [Astepro] 2 spr NS BID 10/01/18 Budesonide [Pulmicort 0.25 mg Nebulizer -] 180 mcg IH BID 10/01/18 Cholecalciferol (Vitamin D3) [Vitamin D3 -] 400 unit PO DAILY 10/01/18 Docusate Sodium [Colace] 100 mg PO DAILY 10/01/18 Fluticasone Furoate [Arnuity Ellipta] 50 mcg IH BID 10/01/18 Torsemide 5 mg PO DAILY 10/01/18 Potassium Chloride 10 meq PO DAILY 10/02/18 Potassium Chloride [K-Dur -] 10 meq PO DAILY 10/02/18 Tiotropium [place] [Spiriva] 18 mcg IH DAILY 10/02/18 Torsemide 50 mg PO DAILY 10/02/18 Cancer: Yes (LOWER LOBE LUNG) Cardiac Disorders: (ATRIAL FIB) CVA: No COPD: Yes (EMPHYSEMA) CHF: Yes Dementia: No Diabetes: Yes (NIDDM - NO MED) GI Disorders: Yes (REFLUX) Disorders: No HTN: Yes Hypercholesterolemia: Yes Seizures: No Thyroid Disease: No - Surgical History Lung Surgery: Yes (lung resection) - Immunization History Immunization Up to Date: No (did not get flu) - Suicide/Smoking/Psychosocial Hx Smoking Status: No Smoking History: Former smoker Have you smoked in the past 12 months: No Number of Cigarettes Smoked Daily: 0 If you are a former smoker, when did you quit?: 8YRS AGO Hx Alcohol Use: No Drug/Substance Use Hx: No Substance Use Type: Alcohol Hx Substance Use Treatment: No Review of Systems - Review of Systems Able to Perform ROS?: Yes Comments:: GENERAL/CONSTITUTIONAL: No fever or chills. No weakness HEAD, EYES, EARS, NOSE AND THROAT: No change in vision. No ear pain or discharge. No sore throat CARDIOVASCULAR: No chest pain RESPIRATORY: Denies cough, hemoptysis GASTROINTESTINAL: No nausea, vomiting, diarrhea or constipation GENITOURINARY: No dysuria, frequency, or change in urination MUSCULOSKELETAL: No joint or muscle swelling or pain. No neck or back pain SKIN: No rash NEUROLOGIC: No headache, vertigo, loss of consciousness, or change in strength/ sensation ENDOCRINE: No increased thirst. No abnormal weight change HEMATOLOGIC/LYMPHATIC: No anemia, easy bleeding, or history of blood clots ALLERGIC/IMMUNOLOGIC: No hives or skin allergy 10/01/18 19:11 Is the patient limited [place] proficient: No *Physical Exam - Vital Signs Vital Signs Temp Pulse Resp BP Pulse Ox 98.4 F 105 H 18 146/106 H 100 10/01/18:19 10/01/18 19:19 10/01/18 19:19 10/01/18 19:19 10/01/18 19:19 10/01/18 20:17 - Physical Exam Comments: GENERAL: Awake, alert, and oriented to person/place/time, in no acute distress HEAD: No signs of trauma, normocephalic, atraumatic EYES: PERRLA, EOMI, sclera anicteric, conjunctiva clear ENT: Hearing grossly normal, nares patent, oropharynx clear without exudates. No uvular deviation. Moist mucosa LUNGS: No distress, speaks in full sentences, clear to auscultation bilaterally HEART: Tachycardic w/ irregularly irregular rhythm, normal S1 and S2, no murmurs appreciated, peripheral pulses normal and equal bilaterally ABDOMEN: Soft, nontender, normoactive bowel sounds. No guarding, no rebound EXTREMITIES: Normal inspection, Normal range of motion, no edema. No clubbing or cyanosis NEUROLOGICAL: Cranial nerves II through XII grossly intact. Normal speech, normal gait, no focal sensorimotor deficits SKIN: Warm, Dry 10/01/18 19:11 ED Treatment Course - LABORATORY CBC & Chemistry Diagram: 10/01/18 19:54 10/01/18 19:54 Medical Decision Making - Medical Decision Making The pt is a 78F w/ a history of a-fib, HTN, PAD s/p L to R fem-fem bypass, and COPD who presents for concern for choledocholithiasis as pt w/ CT A&P today with evidence of dilated intrahepatic and extrahepatic biliary dilation ED Course Labs and cultures sent Cipro/Flagyl for abx ppx NPO, IVF Consult order placed for Dr. Dickens 10/01/18 19:11 Metoprolol IV once for A-fib w/ RVR -Pt w/o chest pain 10/01/18 19:58 Corrected Ca wnl Leukocytosis 9.9 Hgb 14.5 Lytes unremarkable LFTs elevated but Tbili wnl 10/01/18 21:13 Pt signed out to Admitting team *DC/Admit/Observation/Transfer Diagnosis at time of Disposition: Elevated LFTs, Choledocholithiasis Afib Qualifiers: Atrial fibrillation type: chronic Qualified Code(s): I48.2 - Chronic atrial fibrillation HTN (hypertension) Qualifiers: Hypertension type: essential hypertension Qualified Code(s): I10 - Essential ( primary) hypertension - Discharge Dispostion Condition at time of disposition: Guarded Decision to Admit order: Yes - Referrals - Patient Instructions - Post Discharge Activity
--- NOTE | 2018-10-01 19:25 | PDOC ---
Rapid Medical Evaluation Chief Complaint: Abnormal Lab Results (Outside) Time Seen by Provider: 10/01/18 19:02 Medical Evaluation: Allergies Allergy/AdvReac Type Severity Reaction Status Date / Time No Known Drug Allergies Allergy Verified 10/01/18 19:23 Vital Signs Temp Pulse Resp BP Pulse Ox 98.4 F 105 H 18 146/106 H 100 10/01/18 19:19 10/01/18 19:19 10/01/18 19:19 10/01/18 19:19 10/01/18 19:19 10/01/18 19:24 Pt c/o: sent by [facility] for elevated lft and stones noted in CBD with dilitation , pt with no complaints Pt on brief exam: vss, no ruq pain Pt ordered for: labs, admission orders pt to proceed to the ED Discharge Disposition - Diagnosis Elevated LFTs - Discharge Dispostion Condition at time of disposition: Guarded - Referrals - Patient Instructions - Post Discharge Activity
[2018-10-01] MEDS ORDERED: LACTATED RINGERS SOLUTION 1,000 ML/1,000 ML INFUS.BAG IV SCH (19:30)
[2018-10-01] MEDS ORDERED: CIPROFLOXACIN 400 MG/D5W 400 MG/200 ML IVPB IVPB ONE (19:57)
[2018-10-01] MEDS ORDERED: dilTIAZem HCL 50 MG/10 ML - 10 ML VIAL IVPUSH ONE (19:57)
[2018-10-01] MEDS ORDERED: METOPROLOL TARTRATE 5 MG/5 ML VIAL IVPUSH ONE (20:12)
[2018-10-01] MEDS ORDERED: METOPROLOL TARTRATE 5 MG/5 ML VIAL ONE (20:18)
[2018-10-01 20:19] LABS: BASO % 0.6 % (0-2.0); EOS % 1.5 % (0-4.5); HEMOGLOBIN 14.5 GM/dL (10.7-15.3); LYMPH % 20.8 % (8-40); MCH 31.1 pg (25.7-33.7); MEAN CELL VOLUME 94.2 fl (80-96); MEAN PLT VOLUME 8.3 fl (7.5-11.1); MONO % 14.2 % (3.8-10.2); NEUT % 62.9 % (42.8-82.8); RBC 4.67 M/mm3 (3.60-5.2); RDW 13.4 % (11.6-15.6); WHITE BLOOD COUNT 9.9 K/mm3 (4.0-10.0)
--- NOTE | 2018-10-01 20:28 | PDOC ---
Documentation entered by Vidhya Carver SCRIBE, acting as scribe for Irene Mas DO. Irene Mas DO: This documentation has been prepared by the Mehul holder Xhesika, SCRIBE, under my direction and personally reviewed by me in its entirety. I confirm that the documentation accurately reflects all work, treatment, procedures, and medical decision making performed by me. Attending Attestation - Resident Resident Name: Ranulfo Soni - ED Attending Attestation I have performed the following: I have examined & evaluated the patient, The case was reviewed & discussed with the resident, I agree w/resident's findings & plan, Exceptions are as noted - HPI HPI: 10/01/18 20:29 The patient is a 78 year old female, with a significant PMH of COPD, DM, HTN, carotid stenosis, HLD, lung CA (2005) (s/p VALENTIN resection and chemotherapy), CAD s/p CABG (2014), and AFib (on Eliquis) who presents to the emergency department with abnormal lab results. The patient was at her PCPs office for outpatient evaluation and her CT scan showed evidence of stones in bile duct and elevated LFTs. Patient states she had an ultrasound 3 months ago that first showed she had increased LFTs. The patient notes that after she eats she usually feels like her stomach is full, however, she denies any stomach or abdominal pain. The patient denies chest pain, shortness of breath, headache and dizziness. Denies fever, chills, nausea, vomit, diarrhea and constipation. Denies dysuria, frequency, urgency and hematuria. Allergies: NKDA Past surgical history: lung resection, Bilateral eye cataract surgery PCP: Cosme Spring MD Supplier Quality Specialist: Mat Wynn MD - Physicial Exam PE: 10/01/18 20:30 GENERAL: Awake, alert, and fully oriented, in no acute distress HEAD: No signs of trauma EYES: PERRLA, EOMI, sclera anicteric, conjunctiva clear ENT: nares patent, oropharynx clear without exudates. Moist mucosa NECK: Normal ROM, supple, no lymphadenopathy, JVD, or masses LUNGS: Breath sounds equal, clear to auscultation bilaterally. No wheezes, and no crackles HEART: (+) tachycardic. (+) irregularly regular rate and rhythm, normal S1 and S2, no murmurs, rubs or gallops ABDOMEN: Soft, nontender, normoactive bowel sounds. No guarding, no rebound. No masses EXTREMITIES: Normal range of motion, no edema. No clubbing or cyanosis. No cords , erythema, or tenderness NEUROLOGICAL: Cranial nerves II through XII grossly intact. Normal speech, normal gait SKIN: Warm, Dry, normal turgor, no rashes or lesions noted. 10/01/18 20:37 - Medical Decision Making 10/01/18 20:15 I, Dr. Irene Mas, DO, attest that this document has been prepared under my direction and personally reviewed by me in its entirety. I further attest, that it accurately reflects all work, treatment, procedures and medical decision -making performed by me. 10/01/18 20:21 a/p: 78yo female sent in for eval of elevated lft, elevated alk phos, and an outpt ct that shows stones in the bile ducts -pt currently denies n/v/d or abd pain -no icterus or jaundice -pt in afib rvr - will dose metoprolol -took her elaquis roving can tender -will repeat labs, ruq ultrasound -will admit and consult dr. alvarez -will send cultures and abx -will monitor and reassess -pt will need admission -PMD dr. spring 10/01/18 22:20 elevated lft on labs pt to ultrasound 10/01/18 23:10 pt with gallstones and choledocholithiasis microblog sent to [facility] for admission 10/01/18 23:15 resident discussed the case with [facility] who accepts pt to service Heart Score/ECG Review - ECG Intrepretation Comment:: 10/01/18 20:28 afib at 117 w rvr, nl axis, pvc, nl axis, no acute st/t wave findings
[2018-10-01 20:32] LABS: ALBUMIN 2.6 g/dl (3.4-5.0); BILIRUBIN,TOTAL 0.6 mg/dL (0.2-1); BLOOD UREA NITROGEN 17.8 mg/dL (7-18); POTASSIUM 3.6 mmol/L (3.5-5.1)
[2018-10-01 20:33] LABS: CALCIUM 6.9 mg/dL (8.5-10.1)
[2018-10-01 20:45] LABS: PLATELET COUNT 450 K/MM3 (134-434)
[2018-10-01 20:47] LABS: INR 1.64 (0.83-1.09); PROTHROMBIN TIME (PATIENT) 19.5 SEC (9.7-13.0)
[2018-10-01 20:50] LABS: ACTIVATED PTT 42.5 SECONDS (25.2-36.5)
--- NOTE | 2018-10-01 23:23 | PN ---
Teaching Attending Note Name of Resident: Kierra Martin ATTENDING PHYSICIAN STATEMENT I saw and evaluated the patient. I reviewed the resident's note and discussed the case with the resident. I agree with the resident's findings and plan as documented. SUBJECTIVE: Patient is a 78 year old woman with a PMH of COPD, NIDDM, HTN, Carotid artery stenosis, DJD, HLD, lung CA (2005) (s/p VALENTIN resection and chemotherapy), CAD s/ p CABG (2014), and Afib (on Eliquis) who presents to the ER with elevated LFTs The patient was at her PCPs office for outpatient evaluation and her CT scan showed evidence of stones in bile duct and elevated LFTs. Patient states she had an ultrasound 3 months ago that first showed she had increased LFTs. The patient notes that after she eats she usually feels like her stomach is full, however, she denies any stomach or abdominal pain. The patient denies chest pain , shortness of breath, headache and dizziness. Denies fever, chills, nausea, vomit, diarrhea and constipation. Denies dysuria, frequency, urgency and hematuria. OBJECTIVE: Alert Vital Signs Period Temp Pulse Resp BP Sys/Medley Pulse Ox Last 24 Hr 98.4 F-98.6 F 105-128 18-20 140-146/89-106 97-100 HEENT: No Jaundice, eye redness or discharge, PERRLA, EOMI. Normocephalic, atraumatic. External ears are normal and hearing is grossly intact. No nasal discharge. Neck: Supple, nontender. No palpable adenopathy or thyromegaly. No JVD Chest: Good effort. Clear to auscultation and percussion. Heart: Regular. No S3, rub or murmur Abdomen: Not distended, soft, RUQ tenderness and no HSM. No rebound or guarding. Normal bowel sounds. Ext: Peripheral pulses intact. No leg edema. Skin: Warm and dry. No petechiae, rash or ecchymosis. Neuro: Alert. Oriented x3. CN 2-12 grossly intact. Sensation grossly intact in all four extremities and DTR are symmetric. Psych: Appropriate mood and affect. Good insight. Current Medications Generic Name Dose Route Start Last Admin Trade Name Freq PRN Reason Stop Dose Admin Lactated Ringer's 1,000 ml in 1,000 mls @ 125 mls/hr 10/01/18 19:30 10/01/18 20:00 Lactated Ringers Solution IV 125 mls/hr ASDIR TIARA Administration Abnormal Lab Results 10/01/18 10/01/18 10/01/18 19:54 19:54 19:54 Plt Count 450 H D Monocytes % 14.2 H PT with INR 19.50 H INR 1.64 H PTT (Actin FS) 42.5 H Sodium 132 L Chloride 94 L Calcium 6.9 L* AST 178 H ALT 335 H Alkaline Phosphatase 703 H Albumin 2.6 L Home Medications Medication Instructions Recorded Alprazolam [Xanax] 0.25 mg PO Q6H PRN #0 tablet 11/24/12 Escitalopram Oxalate [Lexapro -] 10 mg PO DAILY 03/15/14 Omeprazole [Prilosec] 20 mg PO DAILY 03/15/14 Diltiazem HCl [Cardizem LA] 240 mg PO DAILY 02/16/15 Apixaban [Eliquis] 5 mg PO BID 02/17/15 Metoprolol Succinate [Toprol Xl] 50 mg PO DAILY 02/17/15 Metoprolol Succinate [Toprol XL -] 25 mg PO HS 08/28/16 Acetaminophen [Tylenol .Regular 650 mg PO Q6H PRN #0 tablet 09/03/16 Strength -] Magnesium Chloride [Slow-Mag -] 128 mg PO DAILY tab 09/03/16 Potassium Chloride [K-Dur -] 20 meq PO BID tab 09/03/16 Potassium Chloride [K-Dur -] 20 meq PO DAILY tab 09/03/16 Simethicone [Mylicon -] 80 mg PO QID PRN #0 tab.chew 09/03/16 Alprazolam [Xanax] 0.25 mg PO DAILY 10/01/18 Azelastine HCl [Astepro] 2 spr NS BID 10/01/18 Budesonide [Pulmicort 0.25 mg 180 mcg IH DAILY 10/01/18 Nebulizer -] Cholecalciferol (Vitamin D3) 400 unit PO DAILY 10/01/18 [Vitamin D3 -] Docusate Sodium [Colace] 100 mg PO DAILY 10/01/18 Fluticasone Furoate [Arnuity 50 mcg IH BID 10/01/18 Ellipta] Torsemide 5 mg PO DAILY 10/01/18 ASSESSMENT AND PLAN: 1. Choledocholithiasis - CT scan of abdomen/pelvis with IV and Oral contrast showed intra and extrahepatic biliary tract dilatation; cholelithiasis; calculi within the common bile duct and no evidence of cholecystitis. Ultrasound done today showed diffuse hepatic steatosis, common bile duct dilatation and cholelithiasis. There is no indication for IV antibiotics at this time. Will monitor closely, get hepatitis serology, trend LFTs, keep her NPO and consult GI for ERCP. UA and CXR pending. EKG showed afib with rate of 117/minute and prolonged QTc with ST depression in V4-6. Initial troponin is negative. Will repeat EKG once her rate slows down - got IV cardiazem and metoprolol in the ER. Will continue comprehensive care of all her comorbid conditions including Eliquis for Afib. 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 2. Hypoalbuminemia - Possibly due to combined effects of malnutrition and inflammation associated with comorbid chronic conditions. Will ensure adequate dietary protein intake and also consult glass or mirror inspector. 3. DM Will implement sliding scale insulin regimen. Provide comprehensive diabetes care with patient teaching and counseling about the importance of adherence to prescribed diabetes regimen, euglycemia, eye care and foot care. 4. Obesity Counseled on the risks associated with obesity. Will provide patient all the necessary assistance, counseling and positive reinforcement to facilitate weight loss. Consult glass or mirror inspector. 5. Hypertension - Restart suitable outpatient antihypertensive drugs when clinically appropriate. Revise regimen to ensure good BP control. Nonpharmacologic measures to control hypertension like weight loss, salt restriction and exercise discussed. 6. DVT prophylaxis - On Eliquis for Afib 7. Advance directives - Full code
[2018-10-02 00:38] LABS: PH,URINE 7.5 (5.0-8.0); URINE APPEARANCE CLEAR; URINE BILIRUBIN NEGATIVE (NEGATIVE); URINE COLOR YELLOW; URINE GLUCOSE (UA) NEGATIVE (NEGATIVE); URINE KETONE NEGATIVE (NEGATIVE); URINE LEUK ESTERASE TRACE (NEGATIVE); URINE NITRITE NEGATIVE (NEGATIVE); URINE PROTEIN NEGATIVE (NEGATIVE); URINE UROBILINOGEN 0.2 mg/dL (0.2-1.0)
[2018-10-02 00:39] LABS: EPI CELLS NONE SEEN /HPF (0-5/HPF); HYALINE CASTS NONE SEEN /lpf (0-8); URINE BACTERIA NONE SEEN /hpf (NEGATIVE); URINE RBC NONE SEEN /hpf (0-4); URINE WBC NONE SEEN /hpf (0-5)
--- NOTE | 2018-10-02 00:58 | HP ---
CHIEF COMPLAINT: elevated LFTs on routine lab work PCP: Dr. Spring HISTORY OF PRESENT ILLNESS: Ms. Delgado is a 78 yo female with COPD, pulmonary HTN, previous lung cancer, atrial fibrillation, CAD, HTN, and hyperlipidemia presents to ED for elevated LFTs. She was seen by her PCP last week for a routine visit and went back on 06/17 for lab work. She reports lab work 3 months ago that showed elevated LFTs and the most recent labs were increased from the previous ones. She reports occasional indigestion following meals, as well as gas. She denies any abdominal pain, nausea, vomiting, or loss of appetite. Her diet does not include many fried or fatty foods. She reports normal bowel movements and no dysuria. When patient arrived to ED, she was asymptomatic in a-fib with RVR with HR in 120s. ER course was notable for: (1) Diltiazem 10mg and Lopressor 5mg for a-fib (2) CT abd and chest PAST MEDICAL HISTORY: 1. COPD-takes O2 at home, unsure of amount 2. pulmonary HTN 3. sleep apnea 4. lung cancer s/p lobectomy 2005 5. atrial fibrillation 6. CAD 7. HTN 8. hyperlipidemia 9. carotid stenosis PAST SURGICAL HISTORY: 1. lung resection 2. iliac bypass 3. bilateral eye cataract repair Social History: Smokin pack years, quit 2005 Alcohol: social Drugs: none Lives alone, has good relationship with sons Family History: father-laryngeal CA mother-unknown heart condition sister-lung CA Allergies NKDA No Known Drug Allergies Allergy (Verified 10/01/18 19:23) HOME MEDICATIONS: Home Medications Medication Instructions Recorded Alprazolam [Xanax] 0.25 mg PO Q6H PRN #0 tablet 11/24/12 Escitalopram Oxalate [Lexapro -] 10 mg PO DAILY 03/15/14 Omeprazole [Prilosec] 20 mg PO DAILY 03/15/14 Diltiazem HCl [Cardizem LA] 240 mg PO DAILY 02/16/15 Apixaban [Eliquis] 5 mg PO BID 02/17/15 Metoprolol Succinate [Toprol Xl] 50 mg PO DAILY 02/17/15 Metoprolol Succinate [Toprol XL -] 25 mg PO HS 08/28/16 Acetaminophen [Tylenol .Regular 650 mg PO Q6H PRN #0 tablet 09/03/16 Strength -] Magnesium Chloride [Slow-Mag -] 128 mg PO DAILY tab 09/03/16 Potassium Chloride [K-Dur -] 20 meq PO BID tab 09/03/16 Potassium Chloride [K-Dur -] 20 meq PO DAILY tab 09/03/16 Simethicone [Mylicon -] 80 mg PO QID PRN #0 tab.chew 09/03/16 Alprazolam [Xanax] 0.25 mg PO DAILY 10/01/18 Azelastine HCl [Astepro] 2 spr NS BID 10/01/18 Budesonide [Pulmicort 0.25 mg 180 mcg IH DAILY 10/01/18 Nebulizer -] Cholecalciferol (Vitamin D3) 400 unit PO DAILY 10/01/18 [Vitamin D3 -] Docusate Sodium [Colace] 100 mg PO DAILY 10/01/18 Fluticasone Furoate [Arnuity 50 mcg IH BID 10/01/18 Ellipta] Torsemide 5 mg PO DAILY 10/01/18 REVIEW OF SYSTEMS CONSTITUTIONAL: Absent: fever, chills, diaphoresis, generalized weakness, malaise, loss of appetite HEENT: Absent: rhinorrhea, nasal congestion CARDIOVASCULAR: Present: irregular heart rate Absent: chest pain, syncope, palpitations, lightheadedness, peripheral edema RESPIRATORY: Absent: cough, shortness of breath, dyspnea with exertion, orthopnea, wheezing, stridor, hemoptysis GASTROINTESTINAL: Reports: indigestion, bloating Absent: abdominal pain, abdominal distension, nausea, vomiting, diarrhea, constipation, melena, hematochezia GENITOURINARY: Absent: dysuria MUSCULOSKELETAL: Absent: myalgia, arthralgia SKIN: Absent: rash, itching, pallor HEMATOLOGIC/IMMUNOLOGIC: Absent: easy bleeding, easy bruising, lymphadenopathy, frequent infections ENDOCRINE: Absent: unexplained weight gain, unexplained weight loss NEUROLOGIC: Absent: headache, focal weakness or paresthesias, dizziness, unsteady gait, seizure, PSYCHIATRIC: Absent: anxiety, depression PHYSICAL EXAMINATION Vital Signs - 24 hr 10/01/18 10/01/18 10/01/18 19:19 19:35 20:30 Temperature 98.4 F 98.6 F Pulse Rate 105 H Pulse Rate [ 124 H 128 H Right Radial] Respiratory 18 20 20 Rate Blood Pressure 146/106 H Blood Pressure 140/89 144/93 [Left Arm] O2 Sat by Pulse 100 97 97 Oximetry (%) 10/01/18 20:31 Temperature Pulse Rate Pulse Rate [ Right Radial] Respiratory Rate Blood Pressure 144/93 Blood Pressure [Left Arm] O2 Sat by Pulse Oximetry (%) GENERAL: Awake, alert, and fully oriented, in no acute distress. HEAD: Normal with no signs of trauma. EYES: Pupils equal, round and reactive to light, extraocular movements intact, sclera anicteric, conjunctiva clear. No lid lag. EARS, NOSE, THROAT: Ears normal, nares patent. Moist mucous membranes. NECK: Normal range of motion, supple without lymphadenopathy, JVD, or masses. LUNGS: Expiratory wheezing upper lungs bilaterally. No accessory muscle use. HEART: Tachycardic, arrhythmic, no murmur, rub or gallop. ABDOMEN: Soft, nontender, not distended, normoactive bowel sounds, no guarding, no rebound, no masses. No hepatomegaly or splenomegaly. Negative Beck's sign. MUSCULOSKELETAL: Normal range of motion at all joints. No bony deformities or tenderness. UPPER EXTREMITIES: 2+ pulses, warm, well-perfused. No cyanosis. No clubbing. No peripheral edema. LOWER EXTREMITIES: 1+ pulses, warm, well-perfused. No pitting edema. NEUROLOGICAL: Cranial nerves II-XII intact. Normal speech. PSYCHIATRIC: Cooperative. Good eye contact. Appropriate mood and affect. SKIN: Warm, dry, normal turgor, no rashes or lesions noted, normal capillary refill. Laboratory Results - last 24 hr 10/01/18 10/01/18 10/01/18 19:54 19:54 19:54 WBC 9.9 RBC 4.67 Hgb 14.5 Hct 44.0 MCV 94.2 MCH 31.1 MCHC 33.0 RDW 13.4 Plt Count 450 H D MPV 8.3 Absolute Neuts (auto) 6.2 Neutrophils % 62.9 Lymphocytes % 20.8 Monocytes % 14.2 H Eosinophils % 1.5 Basophils % 0.6 Nucleated RBC % 0 PT with INR INR PTT (Actin FS) Sodium 132 L Potassium 3.6 Chloride 94 L Carbon Dioxide 23 Anion Gap 15 BUN 17.8 Creatinine 1.0 Est GFR (CKD-EPI)AfAm 62.05 Est GFR (CKD-EPI)NonAf 53.54 Random Glucose 96 Calcium 6.9 L* Total Bilirubin 0.6 AST 178 H ALT 335 H Alkaline Phosphatase 703 H Total Protein 7.0 Albumin 2.6 L Lipase 158 Urine Color Urine Appearance Urine pH Ur Specific [place] Urine Protein Urine Glucose (UA) Urine Ketones Urine Blood Urine Nitrite Urine Bilirubin Urine Urobilinogen Ur Leukocyte Esterase Urine WBC (Auto) Urine RBC (Auto) Urine Casts (Auto) U Epithel Cells (Auto) Urine Bacteria (Auto) Blood Type O POSITIVE Antibody Screen Negative 10/01/18 10/02/18 19:54 00:00 WBC RBC Hgb Hct MCV MCH MCHC RDW Plt Count MPV Absolute Neuts (auto) Neutrophils % Lymphocytes % Monocytes % Eosinophils % Basophils % Nucleated RBC % PT with INR 19.50 H INR 1.64 H PTT (Actin FS) 42.5 H Sodium Potassium Chloride Carbon Dioxide Anion Gap BUN Creatinine Est GFR (CKD-EPI)AfAm Est GFR (CKD-EPI)NonAf Random Glucose Calcium Total Bilirubin AST ALT Alkaline Phosphatase Total Protein Albumin Lipase Urine Color Yellow Urine Appearance Clear Urine pH 7.5 D Ur Specific [place] 1.008 L Urine Protein Negative Urine Glucose (UA) Negative Urine Ketones Negative Urine Blood Negative Urine Nitrite Negative Urine Bilirubin Negative Urine Urobilinogen 0.2 Ur Leukocyte Esterase Trace Urine WBC (Auto) None seen Urine RBC (Auto) None seen Urine Casts (Auto) None seen U Epithel Cells (Auto) None seen Urine Bacteria (Auto) None seen Blood Type Antibody Screen ASSESSMENT/PLAN: -choledocolithiasis Patient has had occasional indigestion recently following meals in the epigastric area as well as some bloating. She has had no other significant GI symptoms. She reported increased LFTs from lab work 3 months ago, and they were more elevated today. U/S showed increased extra and intra-hepatic biliary tract dilation. CT showed common bile duct dilation as well, measuring 1cm with several calculi. Will order ERCP to investigate and remove stones. She has no elevated white count nor fever, so antibiotics are not warranted at this time. -atrial fibrillation with RVR Patient has history of atrial fibrillation and is currently on Toprol XL and diltiazem and is anti-coagulated with Eliquis. She was asymptomatic at presentation and throughout exam. She was given diltiazem 10mg and Lopressor 5mg in the ED after the EKG showed a-fib with RVR. Patient is admitted to telemetry and will continue to monitor patient. Fluids Lactated ringers 125mLs/hr Electrolytes LRs Nutrition NPO for ERCP Visit type - Emergency Visit Emergency Visit: Yes ED Registration Date: 10/01/18 Care time: The patient presented to the Emergency Department on the above date and was hospitalized for further evaluation of their emergent condition. - New Patient This patient is new to me today: Yes Date on this admission: 10/02/18 - Critical Care Critical Care patient: No
[2018-10-02] MEDS ORDERED: PT OWN MED DRAWER 7, Y5N ONE ×3 (06:38→21:04)
[2018-10-02 08:10] LABS: INR 1.39 (0.83-1.09); PROTHROMBIN TIME (PATIENT) 16.4 SEC (9.7-13.0)
--- NOTE | 2018-10-02 08:10 | PN ---
Physical Exam: SUBJECTIVE: Patient seen and examined. No c/o this am, no chest pain, no abdominal pain, no SOB. Referred by PCp for elevated LFTs found to have dilated CBD. Pt on eliquis. Per GI will hold off ERCP till Saturday OBJECTIVE: Vital Signs Period Temp Pulse Resp BP Sys/Medley Pulse Ox Last 24 Hr 98.1 F-98.6 F 95-128 18-22 135-157/69-106 95-100 Vital Signs Temp 98.2 F 10/02/18 09:00 Pulse 121 H 10/02/18 09:00 Resp 20 10/02/18 09:00 BP 162/91 10/02/18 09:00 Pulse Ox 95 10/02/18 09:00 Intake & Output 10/01/18 10/02/18 10/02/18 23:59 11:59 23:59 Weight 81.647 kg 81.919 kg Other: Voiding Method Toilet Toilet # Unmeasured Voids Void 1 2 Bowel Movement No Height 1.63 m 1.63 m Body Mass Index (BMI) 30.9 30.9 Weight Measurement Method Standing Scale Weight Measurement Method Est/Stated by Patient GENERAL: The patient is awake, alert, and fully oriented, in no acute distress. ENT: oropharynx clear without exudates, moist mucous membranes. NECK: supple. LUNGS: Breath sounds equal, clear to auscultation bilaterally, no wheezes, no crackles HEART: Regular rate and rhythm, S1, S2 ABDOMEN: Soft, nontender, nondistended, normoactive bowel sounds, no guarding EXTREMITIES: 2+ pulses, warm, well-perfused, mild deformity of feet with prominent metatarsals NEUROLOGICAL: Cranial nerves II through XII grossly intact. Normal speech, gait not observed. PSYCH: Normal mood, normal affect. SKIN: Warm, dry, normal turgor, no rashes or lesions noted Laboratory Results - last 24 hr 10/01/18 10/01/18 10/01/18 19:54 19:54 19:54 WBC 9.9 RBC 4.67 Hgb 14.5 Hct 44.0 MCV 94.2 MCH 31.1 MCHC 33.0 RDW 13.4 Plt Count 450 H D MPV 8.3 Absolute Neuts (auto) 6.2 Neutrophils % 62.9 Lymphocytes % 20.8 Monocytes % 14.2 H Eosinophils % 1.5 Basophils % 0.6 Nucleated RBC % 0 PT with INR INR PTT (Actin FS) Sodium 132 L Potassium 3.6 Chloride 94 L Carbon Dioxide 23 Anion Gap 15 BUN 17.8 Creatinine 1.0 Est GFR (CKD-EPI)AfAm 62.05 Est GFR (CKD-EPI)NonAf 53.54 Random Glucose 96 Calcium 6.9 L* Total Bilirubin 0.6 AST 178 H ALT 335 H Alkaline Phosphatase 703 H Total Protein 7.0 Albumin 2.6 L Lipase 158 Urine Color Urine Appearance Urine pH Ur Specific [place] Urine Protein Urine Glucose (UA) Urine Ketones Urine Blood Urine Nitrite Urine Bilirubin Urine Urobilinogen Ur Leukocyte Esterase Urine WBC (Auto) Urine RBC (Auto) Urine Casts (Auto) U Epithel Cells (Auto) Urine Bacteria (Auto) Urine Osmolality Ur Random Sodium Blood Type O POSITIVE Antibody Screen Negative 10/01/18 10/02/18 10/02/18 19:54 00:00 01:27 WBC RBC Hgb Hct MCV MCH MCHC RDW Plt Count MPV Absolute Neuts (auto) Neutrophils % Lymphocytes % Monocytes % Eosinophils % Basophils % Nucleated RBC % PT with INR 19.50 H INR 1.64 H PTT (Actin FS) 42.5 H Sodium Potassium Chloride Carbon Dioxide Anion Gap BUN Creatinine Est GFR (CKD-EPI)AfAm Est GFR (CKD-EPI)NonAf Random Glucose Calcium Total Bilirubin AST ALT Alkaline Phosphatase Total Protein Albumin Lipase Urine Color Yellow Urine Appearance Clear Urine pH 7.5 D Ur Specific [place] 1.008 L Urine Protein Negative Urine Glucose (UA) Negative Urine Ketones Negative Urine Blood Negative Urine Nitrite Negative Urine Bilirubin Negative Urine Urobilinogen 0.2 Ur Leukocyte Esterase Trace Urine WBC (Auto) None seen Urine RBC (Auto) None seen Urine Casts (Auto) None seen U Epithel Cells (Auto) None seen Urine Bacteria (Auto) None seen Urine Osmolality 180 L Ur Random Sodium Blood Type Antibody Screen 10/02/18 01:27 WBC RBC Hgb Hct MCV MCH MCHC RDW Plt Count MPV Absolute Neuts (auto) Neutrophils % Lymphocytes % Monocytes % Eosinophils % Basophils % Nucleated RBC % PT with INR INR PTT (Actin FS) Sodium Potassium Chloride Carbon Dioxide Anion Gap BUN Creatinine Est GFR (CKD-EPI)AfAm Est GFR (CKD-EPI)NonAf Random Glucose Calcium Total Bilirubin AST ALT Alkaline Phosphatase Total Protein Albumin Lipase Urine Color Urine Appearance Urine pH Ur Specific [place] Urine Protein Urine Glucose (UA) Urine Ketones Urine Blood Urine Nitrite Urine Bilirubin Urine Urobilinogen Ur Leukocyte Esterase Urine WBC (Auto) Urine RBC (Auto) Urine Casts (Auto) U Epithel Cells (Auto) Urine Bacteria (Auto) Urine Osmolality Ur Random Sodium 22 L Blood Type Antibody Screen Active Medications Generic Name Dose Route Start Last Admin Trade Name Freq PRN Reason Stop Dose Admin Apixaban 5 mg 10/02/18 10:00 Eliquis - PO BID [facility] Budesonide 1 amp 10/02/18 08:00 Pulmicort 0.25 Mg Nebulizer - NEB RBID TIARA Diltiazem HCl 300 mg 10/02/18 10:00 Cardizem Cd - PO DAILY [facility] Docusate Sodium 100 mg 10/02/18 10:00 Colace - PO DAILY [facility] Escitalopram Oxalate 20 mg 10/02/18 10:00 Lexapro - PO DAILY [facility] Lactated Ringer's 1,000 ml in 1,000 mls @ 125 mls/hr 10/01/18 19:30 10/01/18 20:00 Lactated Ringers Solution IV 125 mls/hr ASDIR [facility] Administration Metoprolol Succinate 50 mg 10/02/18 22:00 Toprol Xl - PO HS [facility] Metoprolol Succinate 25 mg 10/02/18 10:00 Toprol Xl - PO DAILY [facility] Non-Formulary Medication 50 mcg 10/02/18 10:00 Fluticasone Furoate [Arnuity Ellipta] IH BID [facility] Tiotropium [place] 2 puff 10/02/18 10:00 Spiriva Respimat IH DAILY [facility] Torsemide 50 mg 10/02/18 10:00 Demadex - PO DAILY [facility] Ambulatory Orders Alprazolam [Xanax] 0.25 mg PO Q6H PRN #0 tablet 11/24/12 Escitalopram Oxalate [Lexapro -] 20 mg PO DAILY 03/15/14 Omeprazole [Prilosec] 20 mg PO DAILY 03/15/14 Diltiazem HCl [Cardizem LA] 300 mg PO DAILY 02/16/15 Apixaban [Eliquis] 5 mg PO BID 02/17/15 Metoprolol Succinate [Toprol Xl] 50 mg PO HS 02/17/15 Metoprolol Succinate [Toprol XL -] 25 mg PO DAILY 08/28/16 Acetaminophen [Tylenol .Regular Strength -] 650 mg PO Q6H PRN #0 tablet Magnesium Chloride [Slow-Mag -] 128 mg PO DAILY tab 09/03/16 Alprazolam [Xanax] 0.25 mg PO DAILY 10/01/18 Budesonide [Pulmicort 0.25 mg Nebulizer -] 180 mcg IH BID 10/01/18 Cholecalciferol (Vitamin D3) [Vitamin D3 -] 400 unit PO DAILY 10/01/18 Docusate Sodium [Colace] 100 mg PO DAILY 10/01/18 Potassium Chloride 10 meq PO DAILY 10/02/18 Tiotropium [place] [Spiriva] 18 mcg IH DAILY 10/02/18 Torsemide 50 mg PO DAILY 10/02/18 Current Medications Acetaminophen (Tylenol -) 650 mg PO ONCE ONE Stop: 10/02/18 17:30 Alprazolam (Xanax -) 0.25 mg PO Q8H PRN PRN Reason: ANXIETY Alprazolam (Xanax -) 0.25 mg PO HS ONE Stop: 10/02/18 22:01 Apixaban (Eliquis -) 5 mg PO BID [facility] Stop: 10/03/18 06:00 Last Admin: 10/02/18 10:36 Dose: 5 mg Budesonide (Pulmicort 0.25 Mg Nebulizer -) 1 amp NEB RBID [facility] Last Admin: 10/02/18 08:20 Dose: 1 amp Diltiazem HCl (Cardizem Cd -) 300 mg PO DAILY [facility] Last Admin: 10/02/18 10:37 Dose: 300 mg Docusate Sodium (Colace -) 100 mg PO DAILY [facility] Last Admin: 10/02/18 10:35 Dose: 100 mg Enoxaparin Sodium (Lovenox -) 80 mg SQ BID [facility] Stop: 10/05/18 14:00 Escitalopram Oxalate (Lexapro -) 20 mg PO DAILY [facility] Last Admin: 10/02/18 10:36 Dose: 20 mg Lactated Ringer's (Lactated Ringers Solution) 1,000 ml in 1,000 mls @ 42 mls/ hr IV ASDIR [facility] Last Admin: 10/02/18 11:22 Dose: 42 mls/hr Metoprolol Succinate (Toprol Xl -) 50 mg PO [facility] Metoprolol Succinate (Toprol Xl -) 25 mg PO DAILY [facility] Last Admin: 10/02/18 10:36 Dose: 25 mg Non-Formulary Medication (Fluticasone Furoate [Arnuity Ellipta]) 50 mcg IH BID [facility] Simethicone (Mylicon -) 80 mg PO QID PRN PRN Reason: GAS Last Admin: 10/02/18 11:10 Dose: 80 mg Tiotropium [place] (Spiriva Respimat) 2 puff IH DAILY [facility] Last Admin: 10/02/18 10:38 Dose: 2 puff Torsemide (Demadex -) 50 mg PO DAILY [facility] Last Admin: 10/02/18 10:36 Dose: 50 mg ASSESSMENT/PLAN: Pt is a 78 yo female with COPD, pulmonary HTN, previous lung cancer, atrial fibrillation, CAD, HTN, and hyperlipidemia presents to ED for elevated LFTs found to have dilated CBD. #choledocolithiasis Pt without biliary colic Numbers trending down since yesterday Elevated INR, on eliquis Per GI- Dr Hameed- sc Vit K 5mg given To start full dose lovenox To hold lovenox Saturday in preparation for ERCP Saturday No antibiotics at this time #atrial fibrillation with RVR in the ED - Pt in a-fib with RVR Toprol XL and diltiazem Home Eliquis on hold, cont lovenox full dose Px on received iv diltiazem 10mg On received iv Lopressor 5mg #COPD On budenoside ih #pulmonary HTN Not short of breath Could be type II/III Cont budenoside, esther blockers Torsemide on hold, pt being rehydrated #previous lung cancer S/p resection and chemotherapy Apears to be in remission CAD s/p CABG Cont metoprolol Eliquis on hold, cont lovenox for afib No statins or ACEIS noted HTN Cont metoprolol Will hold torsemide with iv hydration hyperlipidemia No statin noted Mood disorder Cont lexapro PAD S/p fem-fem Cont AC, no antiplatelet noted Diet order per GI- sodium controlled Fluids Lactated ringers 42mLs/hr Tele admit Visit type - Emergency Visit Emergency Visit: Yes ED Registration Date: 10/01/18 Care time: The patient presented to the Emergency Department on the above date and was hospitalized for further evaluation of their emergent condition. - New Patient This patient is new to me today: Yes Date on this admission: 10/02/18 - Critical Care Critical Care patient: No - Discharge Referral Referred to [facility] Med P.C.: No
[2018-10-02 08:13] LABS: ACTIVATED PTT 37.9 SECONDS (25.2-36.5)
[2018-10-02] MEDS: BUDESONIDE 0.25 MG/2ML INH SUSP VIAL NEB SCH ×2 (08:20→20:30)
[2018-10-02 08:47] LABS: BLOOD UREA NITROGEN 12.4 mg/dL (7-18); CREATININE 0.8 mg/dL (0.55-1.3); POTASSIUM 3.9 mmol/L (3.5-5.1)
[2018-10-02 08:48] LABS: ALBUMIN 1.3 g/dl (3.4-5.0); BILIRUBIN,TOTAL 0.8 mg/dL (0.2-1); CALCIUM 9.1 mg/dL (8.5-10.1); MAGNESIUM 1.1 mg/dL (1.8-2.4); PHOSPHOROUS 3.9 mg/dL (2.5-4.9)
[2018-10-02 09:36] LABS: BASO % 0.6 % (0-2.0); EOS % 2.2 % (0-4.5); HEMATOCRIT 40.4 % (32.4-45.2); HEMOGLOBIN 13.5 GM/dL (10.7-15.3); LYMPH % 20.5 % (8-40); MCH 31.4 pg (25.7-33.7); MCHC 33.5 g/dl (32.0-36.0); MEAN CELL VOLUME 93.8 fl (80-96); MEAN PLT VOLUME 8.3 fl (7.5-11.1); MONO % 15.7 % (3.8-10.2); PLATELET COUNT 414 K/MM3 (134-434); RBC 4.31 M/mm3 (3.60-5.2); RDW 13.3 % (11.6-15.6); WHITE BLOOD COUNT 7.9 K/mm3 (4.0-10.0)
[2018-10-02] MEDS ORDERED: MAGNESIUM SULF 50% (8.12 MEQ/2 ML-1 GM VIAL) IVPB ONE (09:45)
--- NOTE | 2018-10-02 09:58 | CON.GI ---
Consult Consult Specialty:: GI Referred by:: Romana Gresham Reason for Consultation:: Choledocholithiasis - History of Present Illness Chief Complaint: 78 y.o. woman with AF, significant vascular and lung disease (h /o lung ca, sleep apnea), found to have elevated alk phos/AST/ALT with dilated CBD and apparent CBD stones. No pain or fever. Interestingly, her of bile duct cancer. - History Source History Provided By: Patient, Medical Record Limitations to Obtaining History: No Limitations - Past Medical History Cardio/Vascular: Yes: AFIB (now in NSR), CAD, HTN Pulmonary: Yes: COPD, Sleep Apnea Heme/Onc: Yes: Other (Lung cancer) Psych: Yes: Anxiety Musculoskeletal: Yes: Chronic low back pain Endocrine: Yes: Diabetes Mellitus (partial lobectomy lung CA) - Past Surgical History Past Surgical History: Yes: Bypass (Fem-Fem), CABG, Thoracotomy - Alcohol/Substance Use Hx Alcohol Use: No History of Substance Use: reports: None - Smoking History Smoking history: Former smoker Have you smoked in the past 12 months: No Aproximately how many cigarettes per day: 0 If you are a former smoker, when did you quit?: 8YRS AGO - Social History Usual Living Arrangement: Alone ADL: Independent Occupation: retired History of Recent Travel: No Home Medications - Allergies Allergies/Adverse Reactions: Allergies Allergy/AdvReac Type Severity Reaction Status Date / Time No Known Drug Allergies Allergy Verified 10/01/18 19:23 - Home Medications Home Medications: Ambulatory Orders Alprazolam [Xanax] 0.25 mg PO Q6H PRN #0 tablet 11/24/12 Escitalopram Oxalate [Lexapro -] 20 mg PO DAILY 03/15/14 Omeprazole [Prilosec] 20 mg PO DAILY 03/15/14 Diltiazem HCl [Cardizem LA] 300 mg PO DAILY 02/16/15 Apixaban [Eliquis] 5 mg PO BID 02/17/15 Metoprolol Succinate [Toprol Xl] 50 mg PO HS 02/17/15 Metoprolol Succinate [Toprol XL -] 25 mg PO DAILY 08/28/16 Acetaminophen [Tylenol .Regular Strength -] 650 mg PO Q6H PRN #0 tablet Magnesium Chloride [Slow-Mag -] 128 mg PO DAILY tab 09/03/16 Potassium Chloride [K-Dur -] 20 meq PO BID tab 09/03/16 Simethicone [Mylicon -] 80 mg PO QID PRN #0 tab.chew 09/03/16 Alprazolam [Xanax] 0.25 mg PO DAILY 10/01/18 Azelastine HCl [Astepro] 2 spr NS BID 10/01/18 Budesonide [Pulmicort 0.25 mg Nebulizer -] 180 mcg IH BID 10/01/18 Cholecalciferol (Vitamin D3) [Vitamin D3 -] 400 unit PO DAILY 10/01/18 Docusate Sodium [Colace] 100 mg PO DAILY 10/01/18 Fluticasone Furoate [Arnuity Ellipta] 50 mcg IH BID 10/01/18 Torsemide 5 mg PO DAILY 10/01/18 Potassium Chloride 10 meq PO DAILY 10/02/18 Potassium Chloride [K-Dur -] 10 meq PO DAILY 10/02/18 Tiotropium [place] [Spiriva] 18 mcg IH DAILY 10/02/18 Torsemide 50 mg PO DAILY 10/02/18 Family Disease History - Family Disease History Family Disease History: CA: Father (larynx 58), Other: Mother (CVA 80; hx breast Ca) Physical Exam-GI Vital Signs: Vital Signs Temperature 98.4 F 10/02/18 04:51 Pulse Rate 98 H 10/02/18 06:00 Respiratory Rate 18 10/02/18 06:00 Blood Pressure 157/100 10/02/18 06:00 O2 Sat by Pulse Oximetry (%) 96 10/02/18 04:51 Labs: CBC, BMP 10/02/18 05:54 10/02/18 05:54 INR, PTT INR 1.39 (0.83-1.09) H 10/02/18 05:54 Imaging - Results Cat Scan: Report Reviewed, Image Reviewed Ultrasound: Report Reviewed, Image Reviewed Problem List - Problems (1) Choledocholithiasis Code(s): K80.50 - CALCULUS OF BILE DUCT W/O CHOLANGITIS OR CHOLECYST W/O OBST Assessment/Plan Pt with presumed choledocholithiasis as cause of her elevated liver chemistries. The decrease in LFTs over the past 24 hours is more consistent with benign disease than with tumor, fortunately. Consent discussion had with patient for ERCP with sphincterotomy and possible stent insertion. Risks of bleeding, perforation, pancreatitis explained to patient, who is a retired RN. Will not be able to do this for several days as she (1) had an elevated INR on admission and (2) took Eliquis last evening. Will allow patient to eat, give S.C. vitamin K to correct INR, and hold Eliquis after tomorrow morning's dose. Will begin Lovenox on Saturday at 1 mg/kg q12h, schedule for ERCP Saturday, holding Lovenox for the Saturday evening dose. Orders written.
[2018-10-02] MEDS ORDERED: FLUTICASONE FUROATE 50 MCG IH SCH (10:00)
[2018-10-02] MEDS ORDERED: PHYTONADIONE 10 MG/1 ML AMP SQ ONE (10:00)
[2018-10-02] MEDS: DOCUSATE SODIUM 100 MG CAPSULE (FP) PO SCH (10:35)
[2018-10-02] MEDS: ESCITALOPRAM OXALATE 20 MG TABLET (FP) PO SCH (10:36)
[2018-10-02] MEDS: metoPROLOL SUCCINATE 25 MG TAB.SR.24H (FP) PO SCH (10:36)
[2018-10-02] MEDS: APIXABAN 5 MG TABLET PO SCH ×2 (10:36→22:10)
[2018-10-02] MEDS: TORSEMIDE 100 MG TABLET PO SCH (10:36)
[2018-10-02] MEDS: TIOTROPIUM BROMIDE 2.5 MCG (SPIRIVA) RESPIMAT INHALER IH SCH (10:38)
[2018-10-02] MEDS: SIMETHICONE 80 MG TAB.CHEW (FP) PO PRN (11:10)
--- NOTE | 2018-10-02 11:15 | PN ---
Progress Note (short form) - Note Progress Note: Hospitalist to document today. Appreciate discussion from Dr. Hameed. Patient still says she doesn't feel sick or nauseated but albumin is low and she has decreased appetite. Her BP is quite high and I will decrease the IV Ringers solution because the sodium content is over 6GM per liter. PRN Mylicon and Xanax ordered. I had a detailed discussion of her lab testing with patient and son.
--- NOTE | 2018-10-02 15:26 | PN ---
Teaching Attending Note Name of Resident: Seble Monge ATTENDING PHYSICIAN STATEMENT I saw and evaluated the patient. I reviewed the resident's note and discussed the case with the resident. I agree with the resident's findings and plan as documented. SUBJECTIVE:states she is asymptomatic. was notified by PMD to come in due to abnormal labs on routine screening. deneis CP, SOB, fever, chills, N/V/C/D. no recent changes to her medications. claims medication compliance OBJECTIVE: Last Vital Signs Temp Pulse Resp BP Pulse Ox 98.8 F 96 H 20 128/72 95 10/02/18 14:00 10/02/18 14:00 10/02/18 14:00 10/02/18 14:00 10/02/18 09:00 General NAD CV S1 S2 RRR no murmur/rub/gallop Lungs CTA B/L no wheezing/rales/rhonchi Abdomen soft NT/ND neg falcon signs, no rebound or guarding Extremities no pedal edema ASSESSMENT AND PLAN: 78yo M wtih PMH COPD, HTN, DM, CAD, lung ca, DANIELLE on CPAP, CAD s/p CABG, afib on eliquis sent for emergent CT with contrast finding she had choledocholithasis with increased extrahepatic and intrahepatic biliary duct dilation and was sent to the ER for intervention 1. Choledocholithasis- with elevated liver enzymes. plan for ERCP on saturday. delayed due to anticoagulation and no urgency given lack of pain or clinical signs suggestive of infection and down trending labs. vitamin K given and plan to start full dose lovenox during bridging patient for ERCP on friday 10/06. will trend LFT during this time, IVF. GI on board 2. ELevated BP- liekly due to anxiety as she self reports her anxiety with need for intervention. states shes been stable on home meds for long time. will re- start and titrate as needed 3. COPD- no signs of acute exacerbation. cont inhalers 4. DM- not on any medications. last A1c 7. will need to confirm med list. check A1c 5. DANIELLE on cpap- will order for tonight 6. CAD s/p CABG 7. afib on eliquis- plan to switch to lovenox tomorrow. hold saturday nights dose in anticipation for ERCP 8. DVT ppx- eliquis/lovenox 9. spoke with son present at bedside. all questions answered. verbalized understanding and agreement
--- NOTE | 2018-10-02 16:55 | EKG ---
Test Reason : Blood Pressure : / mmHG Vent. Rate : 109 BPM Atrial Rate : 375 BPM P-R Int : 000 ms QRS Dur : 082 ms QT Int : 290 ms P-R-T Axes : 000 046 -77 degrees QTc Int : 390 ms POOR DATA QUALITY, INTERPRETATION MAY BE ADVERSELY AFFECTED ATRIAL FIBRILLATION WITH RAPID VENTRICULAR RESPONSE WITH PREMATURE VENTRICULAR OR ABERRANTLY CONDUCTED COMPLEXES NONSPECIFIC ST AND T WAVE ABNORMALITY ABNORMAL ECG WHEN COMPARED WITH ECG OF 01-OCT-2018 19:32, NONSPECIFIC T WAVE ABNORMALITY, WORSE IN ANTERIOR LEADS Confirmed by JAROD ROSALES MD ([id number]) on 10/02/2018 4:55:01 PM Referred By: Confirmed By:JAROD ROSALES MD
--- NOTE | 2018-10-02 16:56 | EKG ---
Test Reason : Blood Pressure : / mmHG Vent. Rate : 117 BPM Atrial Rate : 113 BPM P-R Int : 000 ms QRS Dur : 082 ms QT Int : 394 ms P-R-T Axes : 000 043 104 degrees QTc Int : 549 ms ATRIAL FIBRILLATION WITH RAPID VENTRICULAR RESPONSE WITH PREMATURE VENTRICULAR OR ABERRANTLY CONDUCTED COMPLEXES NONSPECIFIC ST AND T WAVE ABNORMALITY PROLONGED QT ABNORMAL ECG WHEN COMPARED WITH ECG OF 03-SEP-2016 14:37, NO SIGNIFICANT CHANGE WAS FOUND Confirmed by JAROD ROSALES MD ([id number]) on 10/02/2018 4:55:55 PM Referred By: Confirmed By:JAROD ROSALES MD
[2018-10-02] MEDS ORDERED: ACETAMINOPHEN 325 MG TABLET (FP) PO ONE (17:29)
[2018-10-02] MEDS ORDERED: ACETAMINOPHEN 325 MG TABLET (FP) ONE (17:31)
[2018-10-02] MEDS ORDERED: ALPRAZolam 0.25 MG TABLET PO ONE (22:00)
[2018-10-03 06:10] LABS: BASO % 0.9 % (0-2.0); EOS % 2.6 % (0-4.5); HEMATOCRIT 39.8 % (32.4-45.2); HEMOGLOBIN 13.5 GM/dL (10.7-15.3); LYMPH % 20.2 % (8-40); MCH 32.1 pg (25.7-33.7); MCHC 33.8 g/dl (32.0-36.0); MEAN PLT VOLUME 8.1 fl (7.5-11.1); MONO % 14.9 % (3.8-10.2); NEUT % 61.4 % (42.8-82.8); PLATELET COUNT 425 K/MM3 (134-434); RBC 4.19 M/mm3 (3.60-5.2); RDW 13.7 % (11.6-15.6); WHITE BLOOD COUNT 7.7 K/mm3 (4.0-10.0)
[2018-10-03 06:42] LABS: ALBUMIN 2.4 g/dl (3.4-5.0); BILIRUBIN,TOTAL 0.8 mg/dL (0.2-1); BLOOD UREA NITROGEN 13.5 mg/dL (7-18); CALCIUM 8.8 mg/dL (8.5-10.1); POTASSIUM 3.9 mmol/L (3.5-5.1)
[2018-10-03 07:03] LABS: INR 1.49 (0.83-1.09); PROTHROMBIN TIME (PATIENT) 17.6 SEC (9.7-13.0)
[2018-10-03] MEDS: BUDESONIDE 0.25 MG/2ML INH SUSP VIAL NEB SCH ×2 (08:15→20:30)
[2018-10-03] MEDS: ESCITALOPRAM OXALATE 20 MG TABLET (FP) PO SCH (09:11)
[2018-10-03] MEDS: DOCUSATE SODIUM 100 MG CAPSULE (FP) PO SCH (09:12)
[2018-10-03] MEDS: TORSEMIDE 100 MG TABLET PO SCH (09:12)
[2018-10-03] MEDS: metoPROLOL SUCCINATE 25 MG TAB.SR.24H (FP) PO SCH (09:12)
[2018-10-03] MEDS: TIOTROPIUM BROMIDE 2.5 MCG (SPIRIVA) RESPIMAT INHALER IH SCH (09:13)
--- NOTE | 2018-10-03 09:37 | PN ---
Progress Note (short form) - Note Progress Note: Hospitalist to document today. Some abdominal gas but no acute pain; afebrile and BP much improved today. Na now 139; to repeat Magnesium level. With A.Fib and some nonspecific ST-T changes on EKG will ask her regular cardiology MD for input before ERCP Saturday.
--- NOTE | 2018-10-03 10:02 | PN ---
Physical Exam: SUBJECTIVE: Patient seen and examined. Able to ambulate to and from bathroom with minimal SOB, per pt, same as prior. Reports episodes of biliary colic during week prior to referral to [facility]. Pt also c/o of chronic back pain. No chest pain, no nausea, no constipation. Passed well formed non bloody stool. OBJECTIVE: Vital Signs Period Temp Pulse Resp BP Sys/Medley Pulse Ox Last 24 Hr 97.2 F-99.4 F 90-101 18-20 121-133/54-73 96 GENERAL: The patient is awake, alert, and fully oriented, in no acute painful distress. ENT: moist mucous membranes. LUNGS: Breath sounds equal, clear to auscultation bilaterally HEART: S1, S2 ABDOMEN: Soft, mild tenderness RUQ, nondistended, normoactive bowel sounds, EXTREMITIES: Mild b/l leg edema NEUROLOGICAL: Cranial nerves II through XII grossly intact. Normal speech, gait not observed. Laboratory Results - last 24 hr 10/02/18 10/03/18 10/03/18 05:54 05:45 05:45 WBC 7.7 RBC 4.19 Hgb 13.5 Hct 39.8 MCV 95.0 MCH 32.1 MCHC 33.8 RDW 13.7 Plt Count 425 MPV 8.1 Absolute Neuts (auto) 4.8 Neutrophils % 61.4 Lymphocytes % 20.2 Monocytes % 14.9 H Eosinophils % 2.6 Basophils % 0.9 Nucleated RBC % 0 PT with INR 17.60 H INR 1.49 H Sodium Potassium Chloride Carbon Dioxide Anion Gap BUN Creatinine Est GFR (CKD-EPI)AfAm Est GFR (CKD-EPI)NonAf Random Glucose Hemoglobin A1c % Serum Osmolality 287 Calcium Total Bilirubin AST ALT Alkaline Phosphatase Total Protein Albumin 10/03/18 10/03/18 05:45 05:45 WBC RBC Hgb Hct MCV MCH MCHC RDW Plt Count MPV Absolute Neuts (auto) Neutrophils % Lymphocytes % Monocytes % Eosinophils % Basophils % Nucleated RBC % PT with INR INR Sodium 139 Potassium 3.9 Chloride 101 Carbon Dioxide 31 Anion Gap 7 L BUN 13.5 Creatinine 1.0 Est GFR (CKD-EPI)AfAm 62.05 Est GFR (CKD-EPI)NonAf 53.54 Random Glucose 105 Hemoglobin A1c % 6.2 Serum Osmolality Calcium 8.8 Total Bilirubin 0.8 AST 68 H ALT 178 H Alkaline Phosphatase 462 H Total Protein 6.0 L Albumin 2.4 L Active Medications Generic Name Dose Route Start Last Admin Trade Name Freq PRN Reason Stop Dose Admin Alprazolam 0.25 mg 10/02/18 11:01 Xanax - PO Q8H PRN ANXIETY Budesonide 1 amp 10/02/18 08:00 10/03/18 08:15 Pulmicort 0.25 Mg Nebulizer - NEB 1 amp RBID TIARA Administration Diltiazem HCl 300 mg 10/02/18 10:00 10/03/18 09:13 Cardizem Cd - PO 300 mg DAILY TIARA Administration Docusate Sodium 100 mg 10/02/18 10:00 10/03/18 09:12 Colace - PO Not Given DAILY TIARA Enoxaparin Sodium 80 mg 10/04/18 10:00 Lovenox - SQ 10/05/18 14:00 BID TIARA Escitalopram Oxalate 20 mg 10/02/18 10:00 10/03/18 09:11 Lexapro - PO 20 mg DAILY TIARA Administration Lactated Ringer's 1,000 ml in 1,000 mls @ 75 mls/hr 10/06/18 00:01 Lactated Ringers Solution IV ASDIR TIARA Metoprolol Succinate 50 mg 10/02/18 22:00 10/02/18 22:10 Toprol Xl - PO 50 mg HS TIARA Administration Metoprolol Succinate 25 mg 10/02/18 10:00 10/03/18 09:12 Toprol Xl - PO 25 mg DAILY TIARA Administration Non-Formulary Medication 50 mcg 10/02/18 10:00 Fluticasone Furoate [Arnuity Ellipta] IH BID TIARA Simethicone 80 mg 10/02/18 11:01 10/02/18 11:10 Mylicon - PO 80 mg QID PRN Administration GAS Tiotropium [place] 2 puff 10/02/18 10:00 10/03/18 09:13 Spiriva Respimat IH 2 puff DAILY TIARA Administration Torsemide 50 mg 10/02/18 10:00 10/03/18 09:12 Demadex - PO 50 mg DAILY TIARA Administration Ambulatory Orders Alprazolam [Xanax] 0.25 mg PO Q6H PRN #0 tablet 11/24/12 Escitalopram Oxalate [Lexapro -] 20 mg PO DAILY 03/15/14 Omeprazole [Prilosec] 20 mg PO DAILY 03/15/14 Diltiazem HCl [Cardizem LA] 300 mg PO DAILY 02/16/15 Apixaban [Eliquis] 5 mg PO BID 02/17/15 Metoprolol Succinate [Toprol Xl] 50 mg PO HS 02/17/15 Metoprolol Succinate [Toprol XL -] 25 mg PO DAILY 08/28/16 Acetaminophen [Tylenol .Regular Strength -] 650 mg PO Q6H PRN #0 tablet Magnesium Chloride [Slow-Mag -] 128 mg PO DAILY tab 09/03/16 Alprazolam [Xanax] 0.25 mg PO DAILY 10/01/18 Budesonide [Pulmicort 0.25 mg Nebulizer -] 180 mcg IH BID 10/01/18 Cholecalciferol (Vitamin D3) [Vitamin D3 -] 400 unit PO DAILY 10/01/18 Docusate Sodium [Colace] 100 mg PO DAILY 10/01/18 Potassium Chloride 10 meq PO DAILY 10/02/18 Tiotropium [place] [Spiriva] 18 mcg IH DAILY 10/02/18 Torsemide 50 mg PO DAILY 10/02/18 Current Medications Alprazolam (Xanax -) 0.25 mg PO Q8H PRN PRN Reason: ANXIETY Last Admin: 10/03/18 21:36 Dose: 0.25 mg Budesonide (Pulmicort 0.25 Mg Nebulizer -) 1 amp NEB RBID [facility] Last Admin: 10/03/18 08:15 Dose: 1 amp Diltiazem HCl (Cardizem Cd -) 300 mg PO DAILY [facility] Last Admin: 10/03/18 09:13 Dose: 300 mg Docusate Sodium (Colace -) 100 mg PO DAILY [facility] Last Admin: 10/03/18 09:12 Dose: Not Given Enoxaparin Sodium (Lovenox -) 80 mg SQ BID [facility] Stop: 10/09/18 23:59 Escitalopram Oxalate (Lexapro -) 20 mg PO DAILY [facility] Last Admin: 10/03/18 09:11 Dose: 20 mg Cefazolin Sodium 1 gm/ (Dextrose) 50 mls @ 100 mls/hr IVPB Q8H-IV [facility] Last Admin: 10/03/18 18:43 Dose: 100 mls/hr Metoprolol Succinate (Toprol Xl -) 50 mg PO HS [facility] Last Admin: 10/03/18 21:30 Dose: 50 mg Metoprolol Succinate (Toprol Xl -) 25 mg PO DAILY [facility] Last Admin: 10/03/18 09:12 Dose: 25 mg Non-Formulary Medication (Fluticasone Furoate [Arnuity Ellipta]) 50 mcg IH BID [facility] Simethicone (Mylicon -) 80 mg PO QID PRN PRN Reason: GAS Last Admin: 10/02/18 11:10 Dose: 80 mg Tiotropium [place] (Spiriva Respimat) 2 puff IH DAILY [facility] Last Admin: 10/03/18 09:13 Dose: 2 puff Torsemide (Demadex -) 50 mg PO DAILY [facility] Last Admin: 10/03/18 09:12 Dose: 50 mg ASSESSMENT/PLAN: Pt is a 78 yo female with COPD, pulmonary HTN, previous lung cancer, atrial fibrillation, CAD, HTN, and hyperlipidemia presents to ED for elevated LFTs found to have dilated CBD. #choledocolithiasis Pt had been on eliquis Had INR elevation, received Vit K Cont full dose lovenox To hold lovenox Saturday night in preparation for ERCP Saturday Elevated liver enzymes Likely in setting of choledocholithiasis with risk for cholangitis Per GI- antibiotics started- cefazolin #atrial fibrillation Pt was in a-fib with RVR on presentation Cont Toprol XL and diltiazem Home Eliquis on hold, cont lovenox full dose #COPD On budenoside ih #pulmonary HTN Cont budenoside, esther blockers Cont Torsemide #previous lung cancer S/p resection and chemotherapy Apears to be in remission CAD s/p CABG Cont metoprolol Eliquis on hold, cont lovenox for afib No statins or ACEIS noted HTN Cont metoprolol Will hold torsemide with iv hydration hyperlipidemia No statin noted Mood disorder Cont lexapro PAD S/p fem-fem Cont AC, no antiplatelet noted Diet order per GI- sodium controlled PPx with lovenox to be held Saturday night Visit type - Emergency Visit Emergency Visit: Yes ED Registration Date: 10/01/18 Care time: The patient presented to the Emergency Department on the above date and was hospitalized for further evaluation of their emergent condition. - New Patient This patient is new to me today: No - Critical Care Critical Care patient: No - Discharge Referral Referred to [facility] No
--- NOTE | 2018-10-03 10:17 | CON.CARD ---
Consult Consult Specialty:: Cardiology Referred by:: Dr. Spring Reason for Consultation:: Preop evaluation for ERCP - History of Present Illness Chief Complaint: Elevated LFTs and abdominal pain History of Present Illness: 76 yo with h/o Lung CA, s/p resection and Chemo, Afib, CAD s/p CABG (2014), HTN , HL, DM, COPD, Anxiety, PAD s/p Fem-Fem bypass, carotid stenosis, lung CA (2005 ) (s/p VALENTIN resection and chemotherapy) admitted with abnl LFTs and choledocholithiasis scheduled for ERCP. Patient was seen and evaluated by GI, planned for ERCP and possible sphincterotomy. She denies exertional CP but is chronically limited by SOB due to her COPD and arthritis. Denies syncope, PND, orthopnea. TELE reviewed, AF with overall controlled average heart rate. ECG: AF 109bpm, NSST changes. Old records reviewed. Prior Echo (office) normal biV function with moderate MR and no . - History Source History Provided By: Patient, Medical Record - Past Medical History Cardio/Vascular: Yes: AFIB (now in NSR), CAD, HTN Pulmonary: Yes: COPD, Sleep Apnea Psych: Yes: Anxiety Musculoskeletal: Yes: Chronic low back pain Endocrine: Yes: Diabetes Mellitus (partial lobectomy lung CA) - Past Surgical History Past Surgical History: Yes: Bypass (Fem-Fem), CABG, Thoracotomy - Alcohol/Substance Use Hx Alcohol Use: No History of Substance Use: reports: None - Smoking History Smoking history: Former smoker Have you smoked in the past 12 months: No Aproximately how many cigarettes per day: 0 If you are a former smoker, when did you quit?: 8YRS AGO - Social History Usual Living Arrangement: Alone ADL: Independent Occupation: retired History of Recent Travel: No Home Medications - Allergies Allergies/Adverse Reactions: Allergies Allergy/AdvReac Type Severity Reaction Status Date / Time No Known Drug Allergies Allergy Verified 10/01/18 19:23 - Home Medications Home Medications: Ambulatory Orders Alprazolam [Xanax] 0.25 mg PO Q6H PRN #0 tablet 11/24/12 Escitalopram Oxalate [Lexapro -] 20 mg PO DAILY 03/15/14 Omeprazole [Prilosec] 20 mg PO DAILY 03/15/14 Diltiazem HCl [Cardizem LA] 300 mg PO DAILY 02/16/15 Apixaban [Eliquis] 5 mg PO BID 02/17/15 Metoprolol Succinate [Toprol Xl] 50 mg PO HS 02/17/15 Metoprolol Succinate [Toprol XL -] 25 mg PO DAILY 08/28/16 Acetaminophen [Tylenol .Regular Strength -] 650 mg PO Q6H PRN #0 tablet Magnesium Chloride [Slow-Mag -] 128 mg PO DAILY tab 09/03/16 Alprazolam [Xanax] 0.25 mg PO DAILY 10/01/18 Budesonide [Pulmicort 0.25 mg Nebulizer -] 180 mcg IH BID 10/01/18 Cholecalciferol (Vitamin D3) [Vitamin D3 -] 400 unit PO DAILY 10/01/18 Docusate Sodium [Colace] 100 mg PO DAILY 10/01/18 Potassium Chloride 10 meq PO DAILY 10/02/18 Tiotropium [place] [Spiriva] 18 mcg IH DAILY 10/02/18 Torsemide 50 mg PO DAILY 10/02/18 Family Disease History - Family Disease History Family Disease History: CA: Father (larynx 58), Other: Mother (CVA 80; hx breast Ca) Review of Systems - Review of Systems Constitutional: reports: No Symptoms Eyes: reports: No Symptoms HENT: reports: No Symptoms Neck: reports: No Symptoms Cardiovascular: reports: No Symptoms Gastrointestinal: reports: No Symptoms, Abdominal Pain Genitourinary: reports: No Symptoms Breasts: reports: No Symptoms Reported Musculoskeletal: reports: No Symptoms Integumentary: reports: No Symptoms Neurological: reports: No Symptoms Endocrine: reports: No Symptoms Hematology/Lymphatic: reports: No Symptoms Psychiatric: reports: No Symptoms - Risk Factors Known Risk Factors: Yes: Hypertension, Other (Known CAD) Vital Signs: Vital Signs Temperature 98.2 F 10/03/18 09:32 Pulse Rate 101 H 10/03/18 09:32 Respiratory Rate 18 10/03/18 09:32 Blood Pressure 121/68 10/03/18 09:32 O2 Sat by Pulse Oximetry (%) 96 10/02/18 21:00 Constitutional: Yes: No Distress, Calm Eyes: Yes: Conjunctiva Clear Respiratory: Yes: CTA Bilaterally (no rales or active wheezing) Gastrointestinal: Yes: Soft (NT, no rebound or guarding) Cardiovascular: Yes: Pulse Irregular JVD: No Carotid Bruit: No Heart Sounds: Yes: S1, S2 (irregular no murmur) Edema: No Peripheral Pulses WNL: Yes Neurological: Yes: Alert, Oriented ...Motor Strength: WNL - Other Data Labs, Other Data: CBC, BMP 10/03/18 05:45 10/03/18 05:45 INR, PTT INR 1.49 (0.83-1.09) H 10/03/18 05:45 Laboratory Tests 10/01/18 10/03/18 10/03/18 19:54 05:45 05:45 WBC 7.7 Hgb 13.5 Plt Count 425 INR 1.49 H Sodium Potassium Total Bilirubin AST ALT Alkaline Phosphatase Total Protein Albumin Lipase 158 10/03/18 05:45 WBC Hgb Plt Count INR Sodium 139 Potassium 3.9 Total Bilirubin 0.8 AST 68 H ALT 178 H Alkaline Phosphatase 462 H Total Protein 6.0 L Albumin 2.4 L Lipase Echo: Report Reviewed Prior Cardiac Procedures: CABG Ejection Fraction %: LVEF > or = 40 % Imaging - Results Chest X-ray: Image Reviewed Cat Scan: Report Reviewed EKG: Image Reviewed (AF at 109 bpm w/ NSST changes.) Assessment/Plan IMP: 1. Choledocholithiasis, biliary duct dilatation 2. Permanent AF 3. CAD 4. PAD 5. Mitral regurgitation 6. COPD Cardiac evaluation prior to ERCP: There are no absolute cardiac contraindications to ERCP. The patient would be considered moderate cardiac risk. Presently, she is euvolemic with no acute coronary syndrome and no unstable anginal symptoms. LVEF normal. There is no aortic stenosis. Her blood pressure is well controlled. Her atrial fibrillation is overall acceptably controlled. Elialison has been held as per GI, would resume AC after ERCP when feasible. Will follow.
--- NOTE | 2018-10-03 13:18 | PN.GI ---
GI Progress Note Subjective: GI NOte: Dr Talley's consult is appreciated. Dianelys is fortunately free of pain. Eliquis being held in anticipation of ERCP and is instead receiving heparin. I discussed the ERCP procedure again with her and answered her questions. I also advised cholecystectomy to prevent repeated CBD stone passage , cholangitis and cholecystitis. She is amenable to this. Should ideally be done while off Eliquis during this hospitalization. I communicated this to Dr Spring and await his response - Objective Vital Signs: Vital Signs Temperature 98.2 F 10/03/18 09:32 Pulse Rate 101 H 10/03/18 09:32 Respiratory Rate 18 10/03/18 09:32 Blood Pressure 121/68 10/03/18 09:32 O2 Sat by Pulse Oximetry (%) 96 10/02/18 21:00 Laboratory Tests 10/01/18 10/03/18 10/03/18 19:54 05:45 05:45 WBC 7.7 Total Bilirubin 0.8 AST 68 H ALT 335 H 178 H Alkaline Phosphatase 703 H 462 H Lipase 158 Constitutional: No Distress Eyes: Yes: Conjunctiva Clear ...Auscultate: Yes: Normoactive Bowel Sounds ...Palpate: Yes: Soft, Other (nontender) Labs: CBC, BMP 10/03/18 05:45 10/03/18 05:45 INR, PTT INR 1.49 (0.83-1.09) H 10/03/18 05:45 Assessment/Plan Impression: - Has elevated LFTs due to CBD stones that pose a risk of cholangitis, particularly in a diabetic patient. - Cholelithiasis Plan: -- Will start Kefzol given cholangitis risk -- Eliquis being held in anticipation of ERCP with sphincterotomy and stone extraction -- Cholecystectomy advised Problem List - Problems (1) Choledocholithiasis Assessment/Plan: Has elevated LFTs due to CBD stones that pose a risk of cholangitis, particularly in a diabetic patient. Code(s): K80.50 - CALCULUS OF BILE DUCT W/O CHOLANGITIS OR CHOLECYST W/O OBST (2) Elevated LFTs Code(s): R94.5 - ABNORMAL RESULTS OF LIVER FUNCTION STUDIES (3) Cholelithiasis Assessment/Plan: Advise cholecystectomy Code(s): K80.20 - CALCULUS OF GALLBLADDER W/O CHOLECYSTITIS W/O OBSTRUCTION (4) Afib Code(s): I48.91 - UNSPECIFIED ATRIAL FIBRILLATION Qualifiers: Atrial fibrillation type: chronic Qualified Code(s): I48.2 - Chronic atrial fibrillation (5) HTN (hypertension) Code(s): I10 - ESSENTIAL (PRIMARY) HYPERTENSION Qualifiers: Hypertension type: essential hypertension Qualified Code(s): I10 - Essential (primary) hypertension (6) CAD (coronary artery disease) Code(s): I25.10 - ATHSCL HEART DISEASE OF [place] CORONARY ARTERY W/O ANG PCTRS (7) COPD (chronic obstructive pulmonary disease) Code(s): J44.9 - CHRONIC OBSTRUCTIVE PULMONARY DISEASE, UNSPECIFIED (8) Carotid stenosis Code(s): I65.29 - OCCLUSION AND STENOSIS OF UNSPECIFIED CAROTID ARTERY (9) Diabetes Code(s): E11.9 - TYPE 2 DIABETES MELLITUS WITHOUT COMPLICATIONS (10) Lung cancer Code(s): C34.90 - MALIGNANT NEOPLASM OF UNSP PART OF UNSP BRONCHUS OR LUNG (11) PVD (peripheral vascular disease) Code(s): I73.9 - PERIPHERAL VASCULAR DISEASE, UNSPECIFIED
--- NOTE | 2018-10-03 13:41 | PN ---
Teaching Attending Note Name of Resident: Seble Monge ATTENDING PHYSICIAN STATEMENT I saw and evaluated the patient. I reviewed the resident's note and discussed the case with the resident. I agree with the resident's findings and plan as documented with exceptions below. SUBJECTIVE: Patient seen and examined. Denies any nausea, vomiting, abdominal pain, chest pain, palpitations, dyspnea or new concerns. OBJECTIVE: Vital Signs Period Temp Pulse Resp BP Sys/Medley Pulse Ox Last 24 Hr 97.2 F-99.4 F 90-101 18-20 121-133/54-73 96-96 Intake & Output 09/30/18 10/01/18 10/02/18 10/03/18 23:59 23:59 23:59 23:59 Intake Total 996 240 Balance 996 240 Weight 180 lb 180 lb 9.6 oz 179 lb 6.4 oz General: sitting in bed in no acute distress CVS:S1S2 irregular Chest: CTAB, no rales or wheezing Abdomen:soft, obese, NT throughout, ND, pos bowel sounds Extremities: no edema Home Medications Medication Instructions Recorded Alprazolam [Xanax] 0.25 mg PO Q6H PRN #0 tablet 11/24/12 Escitalopram Oxalate [Lexapro -] 20 mg PO DAILY 03/15/14 Omeprazole [Prilosec] 20 mg PO DAILY 03/15/14 Diltiazem HCl [Cardizem LA] 300 mg PO DAILY 02/16/15 Apixaban [Eliquis] 5 mg PO BID 02/17/15 Metoprolol Succinate [Toprol Xl] 50 mg PO HS 02/17/15 Metoprolol Succinate [Toprol XL -] 25 mg PO DAILY 08/28/16 Acetaminophen [Tylenol .Regular 650 mg PO Q6H PRN #0 tablet 09/03/16 Strength -] Magnesium Chloride [Slow-Mag -] 128 mg PO DAILY tab 09/03/16 Alprazolam [Xanax] 0.25 mg PO DAILY 10/01/18 Budesonide [Pulmicort 0.25 mg 180 mcg IH BID 10/01/18 Nebulizer -] Cholecalciferol (Vitamin D3) 400 unit PO DAILY 10/01/18 [Vitamin D3 -] Docusate Sodium [Colace] 100 mg PO DAILY 10/01/18 Potassium Chloride 10 meq PO DAILY 10/02/18 Tiotropium [place] [Spiriva] 18 mcg IH DAILY 10/02/18 Torsemide 50 mg PO DAILY 10/02/18 Active Medications Alprazolam (Xanax -) 0.25 mg PO Q8H PRN PRN Reason: ANXIETY Budesonide (Pulmicort 0.25 Mg Nebulizer -) 1 amp NEB RBID [facility] Last Admin: 10/03/18 08:15 Dose: 1 amp Diltiazem HCl (Cardizem Cd -) 300 mg PO DAILY [facility] Last Admin: 10/03/18 09:13 Dose: 300 mg Docusate Sodium (Colace -) 100 mg PO DAILY [facility] Last Admin: 10/03/18 09:12 Dose: Not Given Enoxaparin Sodium (Lovenox -) 80 mg SQ BID [facility] Stop: 10/09/18 23:59 Escitalopram Oxalate (Lexapro -) 20 mg PO DAILY [facility] Last Admin: 10/03/18 09:11 Dose: 20 mg Cefazolin Sodium 1 gm/ (Dextrose) 50 mls @ 100 mls/hr IVPB Q8H-IV TIARA Metoprolol Succinate (Toprol Xl -) 50 mg PO HS [facility] Last Admin: 10/02/18 22:10 Dose: 50 mg Metoprolol Succinate (Toprol Xl -) 25 mg PO DAILY [facility] Last Admin: 10/03/18 09:12 Dose: 25 mg Non-Formulary Medication (Fluticasone Furoate [Arnuity Ellipta]) 50 mcg IH BID [facility] Simethicone (Mylicon -) 80 mg PO QID PRN PRN Reason: GAS Last Admin: 10/02/18 11:10 Dose: 80 mg Tiotropium [place] (Spiriva Respimat) 2 puff IH DAILY [facility] Last Admin: 10/03/18 09:13 Dose: 2 puff Torsemide (Demadex -) 50 mg PO DAILY [facility] Last Admin: 10/03/18 09:12 Dose: 50 mg Laboratory Results - last 24 hr 10/03/18 10/03/18 10/03/18 05:45 05:45 05:45 WBC 7.7 RBC 4.19 Hgb 13.5 Hct 39.8 MCV 95.0 MCH 32.1 MCHC 33.8 RDW 13.7 Plt Count 425 MPV 8.1 Absolute Neuts (auto) 4.8 Neutrophils % 61.4 Lymphocytes % 20.2 Monocytes % 14.9 H Eosinophils % 2.6 Basophils % 0.9 Nucleated RBC % 0 PT with INR 17.60 H INR 1.49 H Sodium 139 Potassium 3.9 Chloride 101 Carbon Dioxide 31 Anion Gap 7 L BUN 13.5 Creatinine 1.0 Est GFR (CKD-EPI)AfAm 62.05 Est GFR (CKD-EPI)NonAf 53.54 Random Glucose 105 Hemoglobin A1c % Calcium 8.8 Magnesium 2.0 Total Bilirubin 0.8 AST 68 H ALT 178 H Alkaline Phosphatase 462 H Total Protein 6.0 L Albumin 2.4 L 10/03/18 05:45 WBC RBC Hgb Hct MCV MCH MCHC RDW Plt Count MPV Absolute Neuts (auto) Neutrophils % Lymphocytes % Monocytes % Eosinophils % Basophils % Nucleated RBC % PT with INR INR Sodium Potassium Chloride Carbon Dioxide Anion Gap BUN Creatinine Est GFR (CKD-EPI)AfAm Est GFR (CKD-EPI)NonAf Random Glucose Hemoglobin A1c % 6.2 Calcium Magnesium Total Bilirubin AST ALT Alkaline Phosphatase Total Protein Albumin CT A/P from 10/01/2018 results reviewed US abdomen results reviewed Last Echo per cardiology recs: normal LV function, moderate MR, no ASSESSMENT AND PLAN: 78yo M wtih PMH COPD, HTN, DM, CAD, lung ca, DANIELLE on CPAP, CAD s/p CABG, afib on eliquis sent for emergent CT with contrast finding she had choledocholithasis with increased extrahepatic and intrahepatic biliary duct dilation and was sent to the ER for intervention -Choledocholithiasis with extra/intra hepatic biliary ductal dilatation -Abnormal LFTs, from above -Uncontrolled HTN, from anxiety, improved -COPD -Diet controlled DM -Afibi on eliquis -CAD s/p CABG -DANIELLE on CPAP Plan: GI input noted, LFTs improved. NO fevers/WBC. Low threshold for broad spectum abx if concerns. Cefazolin day 1. Cardiology input noted. Continue diltiazem/metoprolol Eliquis on hold, Lovenox before ERCP ISS, A1c noted. Continue CPAP Dispo pending above Plan discussed with patient and nursing, all questions answered.
[2018-10-03] MEDS: CEFAZOLIN 1 GM in DEXTROSE 5%-WATER - 50 ML IVPB SCH (18:43)
[2018-10-03] MEDS: ALPRAZolam 0.25 MG TABLET PO PRN (21:36)
[2018-10-03 23:16] VITALS: BMI 31.6
[2018-10-04] MEDS ORDERED: ceFAZolin SODIUM 1 GM VIAL ONE ×3 (02:56→17:26)
[2018-10-04] MEDS ORDERED: DEXTROSE 5%-WATER - 50 ML IVPB ONE ×3 (02:56→17:27)
[2018-10-04] MEDS: CEFAZOLIN 1 GM in DEXTROSE 5%-WATER - 50 ML IVPB SCH ×3 (02:58→17:28)
[2018-10-04 07:51] LABS: INR 1.14 (0.83-1.09); PROTHROMBIN TIME (PATIENT) 13.5 SEC (9.7-13.0)
[2018-10-04] MEDS: BUDESONIDE 0.25 MG/2ML INH SUSP VIAL NEB SCH ×2 (08:00→20:29)
[2018-10-04 08:03] LABS: ALBUMIN 2.8 g/dl (3.4-5.0); BILIRUBIN,DIRECT 0.2 mg/dL (0.0-0.2); BILIRUBIN,TOTAL 0.7 mg/dL (0.2-1); TOT PROT 5.9 g/dl (6.4-8.2)
[2018-10-04] MEDS ORDERED: PT OWN MED DRAWER 7, Y5N ONE (09:42)
[2018-10-04] MEDS: ESCITALOPRAM OXALATE 20 MG TABLET (FP) PO SCH (09:55)
[2018-10-04] MEDS: metoPROLOL SUCCINATE 25 MG TAB.SR.24H (FP) PO SCH (09:55)
[2018-10-04] MEDS: DOCUSATE SODIUM 100 MG CAPSULE (FP) PO SCH (09:55)
[2018-10-04] MEDS: TORSEMIDE 100 MG TABLET PO SCH (09:57)
[2018-10-04] MEDS: ENOXAPARIN NA (PORCINE) 80 MG/0.8 ML DISP.SYRIN SQ SCH ×2 (09:57→22:07)
[2018-10-04] MEDS: TIOTROPIUM BROMIDE 2.5 MCG (SPIRIVA) RESPIMAT INHALER IH SCH (10:01)
--- NOTE | 2018-10-04 11:09 | PN ---
Progress Note (short form) - Note Progress Note: s: no chest pain, palps, dizziness, dyspnea. abd pain improved. Current Medications Alprazolam (Xanax -) 0.25 mg PO Q8H PRN PRN Reason: ANXIETY Last Admin: 10/03/18 21:36 Dose: 0.25 mg Budesonide (Pulmicort 0.25 Mg Nebulizer -) 1 amp NEB RBID [facility] Last Admin: 10/03/18 20:30 Dose: 1 amp Diltiazem HCl (Cardizem Cd -) 300 mg PO DAILY [facility] Last Admin: 10/04/18 09:56 Dose: 300 mg Docusate Sodium (Colace -) 100 mg PO DAILY [facility] Last Admin: 10/04/18 09:55 Dose: Not Given Enoxaparin Sodium (Lovenox -) 80 mg SQ BID [facility] Stop: 10/09/18 23:59 Last Admin: 10/04/18 09:57 Dose: 80 mg Escitalopram Oxalate (Lexapro -) 20 mg PO DAILY [facility] Last Admin: 10/04/18 09:55 Dose: 20 mg Cefazolin Sodium 1 gm/ (Dextrose) 50 mls @ 100 mls/hr IVPB Q8H-IV [facility] Last Admin: 10/04/18 09:56 Dose: 100 mls/hr Metoprolol Succinate (Toprol Xl -) 50 mg PO HS [facility] Last Admin: 10/03/18 21:30 Dose: 50 mg Metoprolol Succinate (Toprol Xl -) 25 mg PO DAILY [facility] Last Admin: 10/04/18 09:55 Dose: 25 mg Non-Formulary Medication (Fluticasone Furoate [Arnuity Ellipta]) 50 mcg IH BID [facility] Simethicone (Mylicon -) 80 mg PO QID PRN PRN Reason: GAS Last Admin: 10/02/18 11:10 Dose: 80 mg Tiotropium [place] (Spiriva Respimat) 2 puff IH DAILY [facility] Last Admin: 10/04/18 10:01 Dose: 2 puff Torsemide (Demadex -) 50 mg PO DAILY [facility] Last Admin: 10/04/18 09:57 Dose: 50 mg Vital Signs Period Temp Pulse Resp BP Sys/Medley Pulse Ox Last 24 Hr 97 F-98.8 F 78-98 18-20 120-129/59-83 97-97 Constitutional: Yes: No Distress, Calm Eyes: Yes: Conjunctiva Clear Respiratory: Yes: CTA Bilaterally (no rales or active wheezing) Gastrointestinal: Yes: Soft (NT, no rebound or guarding) Cardiovascular: Yes: Pulse Irregular JVD: No Carotid Bruit: No Heart Sounds: Yes: S1, S2 (irregular no murmur) Edema: No Peripheral Pulses WNL: Yes Neurological: Yes: Alert, Oriented ECG: AF 109bpm, NSST changes. Prior Echo (office) normal biV function with moderate MR and no . tele: afib, rate controlled Imaging - Results Chest X-ray: Image Reviewed Cat Scan: Report Reviewed EKG: Image Reviewed (AF at 109 bpm w/ NSST changes.) Assessment/Plan IMP: 1. Choledocholithiasis, biliary duct dilatation 2. Permanent AF 3. CAD 4. PAD 5. Mitral regurgitation 6. COPD Cardiac evaluation prior to ERCP: -There are no absolute cardiac contraindications to ERCP. The patient would be considered moderate cardiac risk. Presently, she is euvolemic with no acute coronary syndrome and no unstable anginal symptoms. LVEF normal. There is no aortic stenosis. Her blood pressure is well controlled. - continue diltiazem, metoprolol - rate controlled - continue torsemide, euvolemic - Eliquis has been held as per GI, would resume AC after ERCP when feasible.
--- NOTE | 2018-10-04 11:37 | PN ---
Physical Exam: SUBJECTIVE: Patient seen and examined, denies any nausea, vomiting, abdominal pain or concerns. No chest pain, palpitations, dyspnea, or dizziness. OBJECTIVE: Vital Signs Period Temp Pulse Resp BP Sys/Medley Pulse Ox Last 24 Hr 97 F-98.8 F 78-98 18-20 120-129/59-83 97-97 Intake & Output 10/01/18 10/02/18 10/03/18 10/04/18 23:59 23:59 23:59 23:59 Intake Total 996 920 336 Balance 996 920 336 Weight 180 lb 180 lb 9.6 oz 179 lb General: sitting in bed in no acute distress Neck: soft, supple, no JVD CVS:S1S2 irregular Chest: CTAB, no rales or wheezing Abdomen:soft, obese, NT throughout, ND, pos bowel sounds, neg falcon's sign Extremities: no edema Psych: pleasant, co-operative Laboratory Results - last 24 hr 10/04/18 10/04/18 06:50 06:50 PT with INR 13.50 H INR 1.14 H Total Bilirubin 0.7 Direct Bilirubin 0.2 AST 97 H ALT 172 H Alkaline Phosphatase 489 H Total Protein 5.9 L Albumin 2.8 L Active Medications Generic Name Dose Route Start Last Admin Trade Name Freq PRN Reason Stop Dose Admin Alprazolam 0.25 mg 10/02/18 11:01 10/03/18 21:36 Xanax - PO 0.25 mg Q8H PRN Administration ANXIETY Budesonide 1 amp 10/02/18 08:00 10/03/18 20:30 Pulmicort 0.25 Mg Nebulizer - NEB 1 amp RBID TIARA Administration Diltiazem HCl 300 mg 10/02/18 10:00 10/04/18 09:56 Cardizem Cd - PO 300 mg DAILY TIARA Administration Docusate Sodium 100 mg 10/02/18 10:00 10/04/18 09:55 Colace - PO Not Given DAILY TIARA Enoxaparin Sodium 80 mg 10/04/18 10:00 10/04/18 09:57 Lovenox - SQ 10/09/18 23:59 80 mg BID TIARA Administration Escitalopram Oxalate 20 mg 10/02/18 10:00 10/04/18 09:55 Lexapro - PO 20 mg DAILY TIARA Administration Cefazolin Sodium 1 gm/ 50 mls @ 100 mls/hr 10/03/18 18:00 10/04/18 09:56 Dextrose IVPB 100 mls/hr Q8H-IV TIARA Administration Metoprolol Succinate 50 mg 10/02/18 22:00 10/03/18 21:30 Toprol Xl - PO 50 mg HS TIARA Administration Metoprolol Succinate 25 mg 10/02/18 10:00 10/04/18 09:55 Toprol Xl - PO 25 mg DAILY TIARA Administration Non-Formulary Medication 50 mcg 10/02/18 10:00 Fluticasone Furoate [Arnuity Ellipta] IH BID TIARA Simethicone 80 mg 10/02/18 11:01 10/02/18 11:10 Mylicon - PO 80 mg QID PRN Administration GAS Tiotropium [place] 2 puff 10/02/18 10:00 10/04/18 10:01 Spiriva Respimat IH 2 puff DAILY TIARA Administration Torsemide 50 mg 10/02/18 10:00 10/04/18 09:57 Demadex - PO 50 mg DAILY TIARA Administration ASSESSMENT/PLAN: 78yo M wtih PMH COPD, HTN, DM, CAD, lung ca, DANIELLE on CPAP, CAD s/p CABG, afib on eliquis sent for emergent CT with contrast finding she had choledocholithasis with increased extrahepatic and intrahepatic biliary duct dilation and was sent to the ER for intervention -Choledocholithiasis with extra/intra hepatic biliary ductal dilatation -Abnormal LFTs, from above -Uncontrolled HTN, from anxiety, improved -COPD -Diet controlled DM -Afibi on eliquis -CAD s/p CABG -DANIELLE on CPAP Plan: GI input noted. For ERCP with sphincterotomy +/- stent placement on 10/06, hold lovenox saturday night, NPO after midnight tomorrow Surgery consult for elective CCY post ERCP. LFTs overall unchanged, trend for now. Prophylactic cefazolin day 2. No fevers, WBC, low threshold for abx if concerns. GI input noted, LFTs improved. NO fevers/WBC. Low threshold for broad spectum abx if concerns. Cardiology input noted. Continue diltiazem/metoprolol Eliquis on hold, Lovenox as above ISS, A1c noted. Continue CPAP Dispo mid next week post above if no concerns. Plan discussed with patient and nursing, all questions answered. Visit type - Emergency Visit Emergency Visit: Yes ED Registration Date: 10/01/18 Care time: The patient presented to the Emergency Department on the above date and was hospitalized for further evaluation of their emergent condition. - New Patient This patient is new to me today: No - Critical Care Critical Care patient: No - Discharge Referral Referred to [facility] Med P.C.: No
--- NOTE | 2018-10-04 13:26 | PN.GI ---
GI Progress Note Subjective: GI Note: LFTs are fluctuating likely due to stone repositioning. No chill or fevers. Eliquis being held for 10/06 ERCP - Objective Vital Signs: Vital Signs Temperature 97.8 F 10/04/18 10:00 Pulse Rate 98 H 10/04/18 10:00 Respiratory Rate 20 10/04/18 10:00 Blood Pressure 121/68 10/04/18 10:00 O2 Sat by Pulse Oximetry (%) 97 10/04/18 10:00 Laboratory Tests 10/01/18 10/02/18 10/03/18 19:54 05:54 05:45 Total Bilirubin 0.6 Direct Bilirubin AST 178 H 104 H 68 H ALT 335 H 246 H 178 H Alkaline Phosphatase 703 H 555 H 462 H 10/04/18 06:50 Total Bilirubin 0.7 Direct Bilirubin 0.2 AST 97 H ALT 172 H Alkaline Phosphatase 489 H Constitutional: Calm ...Auscultate: Yes: Normoactive Bowel Sounds ...Palpate: Yes: Soft, Other (nontender) Labs: CBC, BMP 10/03/18 05:45 10/03/18 05:45 INR, PTT INR 1.14 (0.83-1.09) H 10/04/18 06:50 Assessment/Plan Impression: - Has elevated LFTs due to CBD stones that pose a risk of cholangitis, particularly in a diabetic patient. - Cholelithiasis Plan: -- Continue Kefzol given cholangitis risk -- Eliquis being held in anticipation of ERCP with sphincterotomy and stone extraction on 10/06 -- Cholecystectomy advised Problem List - Problems (1) Choledocholithiasis Code(s): K80.50 - CALCULUS OF BILE DUCT W/O CHOLANGITIS OR CHOLECYST W/O OBST (2) Elevated LFTs Code(s): R94.5 - ABNORMAL RESULTS OF LIVER FUNCTION STUDIES (3) Cholelithiasis Code(s): K80.20 - CALCULUS OF GALLBLADDER W/O CHOLECYSTITIS W/O OBSTRUCTION (4) Afib Code(s): I48.91 - UNSPECIFIED ATRIAL FIBRILLATION Qualifiers: Atrial fibrillation type: chronic Qualified Code(s): I48.2 - Chronic atrial fibrillation (5) HTN (hypertension) Code(s): I10 - ESSENTIAL (PRIMARY) HYPERTENSION Qualifiers: Hypertension type: essential hypertension Qualified Code(s): I10 - Essential (primary) hypertension (6) CAD (coronary artery disease) Code(s): I25.10 - ATHSCL HEART DISEASE OF [place] CORONARY ARTERY W/O ANG PCTRS (7) COPD (chronic obstructive pulmonary disease) Code(s): J44.9 - CHRONIC OBSTRUCTIVE PULMONARY DISEASE, UNSPECIFIED (8) Carotid stenosis Code(s): I65.29 - OCCLUSION AND STENOSIS OF UNSPECIFIED CAROTID ARTERY (9) Diabetes Code(s): E11.9 - TYPE 2 DIABETES MELLITUS WITHOUT COMPLICATIONS (10) Lung cancer Code(s): C34.90 - MALIGNANT NEOPLASM OF UNSP PART OF UNSP BRONCHUS OR LUNG (11) PVD (peripheral vascular disease) Code(s): I73.9 - PERIPHERAL VASCULAR DISEASE, UNSPECIFIED
[2018-10-04] MEDS: ALPRAZolam 0.25 MG TABLET PO PRN (22:07)
[2018-10-05] MEDS ORDERED: DEXTROSE 5%-WATER - 50 ML IVPB ONE ×3 (02:11→17:56)
[2018-10-05] MEDS ORDERED: ceFAZolin SODIUM 1 GM VIAL ONE ×3 (02:11→17:56)
[2018-10-05] MEDS: CEFAZOLIN 1 GM in DEXTROSE 5%-WATER - 50 ML IVPB SCH ×3 (02:20→18:05)
[2018-10-05 07:36] LABS: BASO % 0.7 % (0-2.0); EOS % 3.2 % (0-4.5); HEMATOCRIT 41.3 % (32.4-45.2); HEMOGLOBIN 13.8 GM/dL (10.7-15.3); LYMPH % 22.9 % (8-40); MCH 31.6 pg (25.7-33.7); MCHC 33.3 g/dl (32.0-36.0); MEAN CELL VOLUME 94.9 fl (80-96); MEAN PLT VOLUME 8.5 fl (7.5-11.1); NEUT % 58.2 % (42.8-82.8); PLATELET COUNT 390 K/MM3 (134-434); RBC 4.36 M/mm3 (3.60-5.2); RDW 13.6 % (11.6-15.6); WHITE BLOOD COUNT 7.3 K/mm3 (4.0-10.0)
[2018-10-05 08:02] LABS: ALBUMIN 3.1 g/dl (3.4-5.0); BILIRUBIN,DIRECT 0.1 mg/dL (0.0-0.2); BILIRUBIN,TOTAL 0.5 mg/dL (0.2-1); BLOOD UREA NITROGEN 15.4 mg/dL (7-18); CALCIUM 8.7 mg/dL (8.5-10.1); POTASSIUM 3.6 mmol/L (3.5-5.1); TOT PROT 6.4 g/dl (6.4-8.2)
[2018-10-05 08:08] LABS: INR 1.08 (0.83-1.09); PROTHROMBIN TIME (PATIENT) 12.8 SEC (9.7-13.0)
[2018-10-05] MEDS ORDERED: PT OWN MED DRAWER 7, Y5N ONE (08:43)
[2018-10-05] MEDS: BUDESONIDE 0.25 MG/2ML INH SUSP VIAL NEB SCH ×2 (09:20→20:47)
[2018-10-05] MEDS: DOCUSATE SODIUM 100 MG CAPSULE (FP) PO SCH (10:08)
[2018-10-05] MEDS: TORSEMIDE 100 MG TABLET PO SCH (10:09)
[2018-10-05] MEDS: ESCITALOPRAM OXALATE 20 MG TABLET (FP) PO SCH (10:09)
[2018-10-05] MEDS: ENOXAPARIN NA (PORCINE) 80 MG/0.8 ML DISP.SYRIN SQ SCH (10:09)
[2018-10-05] MEDS: TIOTROPIUM BROMIDE 2.5 MCG (SPIRIVA) RESPIMAT INHALER IH SCH (10:10)
[2018-10-05] MEDS: metoPROLOL SUCCINATE 25 MG TAB.SR.24H (FP) PO SCH (10:10)
--- NOTE | 2018-10-05 10:18 | PN ---
Physical Exam: SUBJECTIVE: Patient seen and examined, chronic low back pain. denies any nausea , vomiting, abdominal pain. Tolerating diet well. OBJECTIVE: Vital Signs Period Temp Pulse Resp BP Sys/Medley Pulse Ox Last 24 Hr 97.6 F-98.0 F 75-90 20-20 107-149/55-86 98 Intake & Output 10/02/18 10/03/18 10/04/18 10/05/18 23:59 23:59 23:59 23:59 Intake Total 420 050 5841 310 Balance 684 459 1611 310 Weight 180 lb 9.6 oz 179 lb 178 lb GENERAL: AA, no acute distress Neck: soft, supple, no JVD Chest: CTAB, no rales or wheezing Abdomen:soft, obese, NT throughout, ND, no voluntary or involuntary guarding or rigidity noted Extremities: no edema CVS:S1S2 irregular Laboratory Results - last 24 hr 10/05/18 10/05/18 10/05/18 06:25 06:25 06:25 WBC 7.3 RBC 4.36 Hgb 13.8 Hct 41.3 MCV 94.9 MCH 31.6 MCHC 33.3 RDW 13.6 Plt Count 390 MPV 8.5 Absolute Neuts (auto) 4.2 Neutrophils % 58.2 Lymphocytes % 22.9 Monocytes % 15.0 H Eosinophils % 3.2 Basophils % 0.7 Nucleated RBC % 0 PT with INR 12.80 INR 1.08 Sodium 141 Potassium 3.6 Chloride 101 Carbon Dioxide 30 Anion Gap 9 BUN 15.4 Creatinine 1.0 Est GFR (CKD-EPI)AfAm 62.05 Est GFR (CKD-EPI)NonAf 53.54 Random Glucose 102 Calcium 8.7 Total Bilirubin 0.5 Direct Bilirubin 0.1 AST 54 H ALT 111 H Alkaline Phosphatase 451 H Total Protein 6.4 Albumin 3.1 L Active Medications Generic Name Dose Route Start Last Admin Trade Name Freq PRN Reason Stop Dose Admin Alprazolam 0.25 mg 10/02/18 11:01 10/04/18 22:07 Xanax - PO 0.25 mg Q8H PRN Administration ANXIETY Budesonide 1 amp 10/02/18 08:00 10/05/18 09:20 Pulmicort 0.25 Mg Nebulizer - NEB 1 amp RBID TIARA Administration Diltiazem HCl 300 mg 10/02/18 10:00 10/04/18 09:56 Cardizem Cd - PO 300 mg DAILY TIARA Administration Docusate Sodium 100 mg 10/02/18 10:00 10/04/18 09:55 Colace - PO Not Given DAILY TIARA Enoxaparin Sodium 80 mg 10/04/18 10:00 10/04/18 22:07 Lovenox - SQ 10/09/18 23:59 80 mg BID TIARA Administration Escitalopram Oxalate 20 mg 10/02/18 10:00 10/04/18 09:55 Lexapro - PO 20 mg DAILY TIARA Administration Cefazolin Sodium 1 gm/ 50 mls @ 100 mls/hr 10/03/18 18:00 10/05/18 02:20 Dextrose IVPB 100 mls/hr Q8H-IV TIARA Administration Lidocaine 1 patch 10/05/18 10:15 Lidoderm Patch - TP DAILY TIARA Metoprolol Succinate 50 mg 10/02/18 22:00 10/04/18 22:07 Toprol Xl - PO 50 mg HS TIARA Administration Metoprolol Succinate 25 mg 10/02/18 10:00 10/04/18 09:55 Toprol Xl - PO 25 mg DAILY TIARA Administration Non-Formulary Medication 50 mcg 10/02/18 10:00 Fluticasone Furoate [Arnuity Ellipta] IH BID TIARA Simethicone 80 mg 10/02/18 11:01 10/02/18 11:10 Mylicon - PO 80 mg QID PRN Administration GAS Tiotropium [place] 2 puff 10/02/18 10:00 10/04/18 10:01 Spiriva Respimat IH 2 puff DAILY TIARA Administration Torsemide 50 mg 10/02/18 10:00 10/04/18 09:57 Demadex - PO 50 mg DAILY TIARA Administration ASSESSMENT/PLAN: 78yo M wtih PMH COPD, HTN, DM, CAD, lung ca, DANIELLE on CPAP, CAD s/p CABG, afib on eliquis sent for emergent CT with contrast finding she had choledocholithasis with increased extrahepatic and intrahepatic biliary duct dilation and was sent to the ER for intervention -Choledocholithiasis with extra/intra hepatic biliary ductal dilatation -Abnormal LFTs, from above -Uncontrolled HTN, from anxiety, improved -COPD -Diet controlled DM -Afibi with RVR, resolved, on eliquis -CAD s/p CABG -DANIELLE on CPAP Plan: GI input noted. For ERCP with sphincterotomy +/- stent placement on 10/06, hold lovenox saturday night, NPO after midnight Surgery consult for elective CCY post ERCP. LFTs improved, trend for now Prophylactic cefazolin day 3. No fevers, WBC, low threshold for broad spectrum abx if concerns. Cardiology input noted. Continue diltiazem/metoprolol Eliquis on hold, Lovenox as above ISS, A1c noted. Continue CPAP Add lidocaine patch Dispo mid next week post above if no concerns. Plan discussed with patient and nursing, all questions answered. Visit type - Emergency Visit Emergency Visit: Yes ED Registration Date: 10/01/18 Care time: The patient presented to the Emergency Department on the above date and was hospitalized for further evaluation of their emergent condition. - New Patient This patient is new to me today: No - Critical Care Critical Care patient: No - Discharge Referral Referred to [facility] Med P.C.: No
[2018-10-05] MEDS: LIDOCAINE 5% TOPICAL PATCH TP SCH (10:49)
--- NOTE | 2018-10-05 11:10 | PN ---
Progress Note (short form) - Note Progress Note: s: no chest pain, palps, dizziness, dyspnea. Current Medications Alprazolam (Xanax -) 0.25 mg PO Q8H PRN PRN Reason: ANXIETY Last Admin: 10/04/18 22:07 Dose: 0.25 mg Budesonide (Pulmicort 0.25 Mg Nebulizer -) 1 amp NEB RBID [facility] Last Admin: 10/05/18 09:20 Dose: 1 amp Diltiazem HCl (Cardizem Cd -) 300 mg PO DAILY [facility] Last Admin: 10/05/18 10:08 Dose: 300 mg Docusate Sodium (Colace -) 100 mg PO DAILY [facility] Last Admin: 10/05/18 10:08 Dose: 100 mg Enoxaparin Sodium (Lovenox -) 80 mg SQ BID [facility] Stop: 10/09/18 23:59 Last Admin: 10/05/18 10:09 Dose: 80 mg Escitalopram Oxalate (Lexapro -) 20 mg PO DAILY [facility] Last Admin: 10/05/18 10:09 Dose: 20 mg Cefazolin Sodium 1 gm/ (Dextrose) 50 mls @ 100 mls/hr IVPB Q8H-IV [facility] Last Admin: 10/05/18 10:08 Dose: 100 mls/hr Lidocaine (Lidoderm Patch -) 1 patch TP DAILY [facility] Last Admin: 10/05/18 10:49 Dose: 1 patch Metoprolol Succinate (Toprol Xl -) 50 mg PO HS [facility] Last Admin: 10/04/18 22:07 Dose: 50 mg Metoprolol Succinate (Toprol Xl -) 25 mg PO DAILY [facility] Last Admin: 10/05/18 10:10 Dose: 25 mg Miscellaneous (Lidoderm Patch Removal) 1 each MC DAILY@2200 [facility] Non-Formulary Medication (Fluticasone Furoate [Arnuity Ellipta]) 50 mcg IH BID [facility] Simethicone (Mylicon -) 80 mg PO QID PRN PRN Reason: GAS Last Admin: 10/02/18 11:10 Dose: 80 mg Tiotropium [place] (Spiriva Respimat) 2 puff IH DAILY [facility] Last Admin: 10/05/18 10:10 Dose: 2 puff Torsemide (Demadex -) 50 mg PO DAILY [facility] Last Admin: 10/05/18 10:09 Dose: 50 mg Vital Signs Period Temp Pulse Resp BP Sys/Medley Pulse Ox Last 24 Hr 97.6 F-98.0 F 75-90 20-20 107-149/55-86 98 Constitutional: Yes: No Distress, Calm Eyes: Yes: Conjunctiva Clear Respiratory: Yes: CTA Bilaterally (no rales or active wheezing) Gastrointestinal: Yes: Soft (NT, no rebound or guarding) Cardiovascular: Yes: Pulse Irregular JVD: No Carotid Bruit: No Heart Sounds: Yes: S1, S2 (irregular no murmur) Edema: No Peripheral Pulses WNL: Yes Neurological: Yes: Alert, Oriented ECG: AF 109bpm, NSST changes. Prior Echo (office) normal biV function with moderate MR and no . tele: afib, rate controlled Imaging - Results Chest X-ray: Image Reviewed Cat Scan: Report Reviewed EKG: Image Reviewed (AF at 109 bpm w/ NSST changes.) Assessment/Plan IMP: 1. Choledocholithiasis, biliary duct dilatation 2. Permanent AF 3. CAD 4. PAD 5. Mitral regurgitation 6. COPD Cardiac evaluation prior to ERCP/possible cholecystectomy: -There are no absolute cardiac contraindications to ERCP, possible cholecystectomy. The patient would be considered moderate cardiac risk. Presently, she is euvolemic with no acute coronary syndrome and no unstable anginal symptoms. LVEF normal. There is no aortic stenosis. Her blood pressure is well controlled. - continue diltiazem, metoprolol - rate controlled - continue torsemide, euvolemic - Eliquis has been held as per GI, would resume AC after ERCP when feasible.
--- NOTE | 2018-10-05 15:04 | PN.GI ---
GI Progress Note Subjective: GI NOte: No pain. LFTs slightly improved. Dr. Forte's cardiac clearance is appreciated. Hope to do ERCP tomorrow - Objective Vital Signs: Vital Signs Temperature 97.9 F 10/05/18 05:47 Pulse Rate 82 10/05/18 05:47 Respiratory Rate 20 10/05/18 05:47 Blood Pressure 149/86 10/05/18 05:47 O2 Sat by Pulse Oximetry (%) 98 10/04/18 20:51 Laboratory Tests 10/05/18 10/05/18 06:25 06:25 WBC 7.3 Hct 41.3 Total Bilirubin 0.5 Direct Bilirubin 0.1 AST 54 H ALT 111 H Alkaline Phosphatase 451 H Constitutional: No Distress ...Auscultate: Yes: Normoactive Bowel Sounds ...Palpate: Yes: Soft, Other (nontender) Labs: CBC, BMP 10/05/18 06:25 10/05/18 06:25 INR, PTT INR 1.08 (0.83-1.09) 10/05/18 06:25 Assessment/Plan Impression: - Elevated LFTs due to CBD stones that pose a risk of cholangitis, particularly in a diabetic patient. - Cholelithiasis Plan: -- Continue Kefzol given cholangitis risk -- Eliquis being held in anticipation of ERCP with sphincterotomy and stone extraction on 10/06 -- Cholecystectomy advised Problem List - Problems (1) Choledocholithiasis Code(s): K80.50 - CALCULUS OF BILE DUCT W/O CHOLANGITIS OR CHOLECYST W/O OBST (2) Elevated LFTs Code(s): R94.5 - ABNORMAL RESULTS OF LIVER FUNCTION STUDIES (3) Cholelithiasis Code(s): K80.20 - CALCULUS OF GALLBLADDER W/O CHOLECYSTITIS W/O OBSTRUCTION (4) Afib Code(s): I48.91 - UNSPECIFIED ATRIAL FIBRILLATION Qualifiers: Atrial fibrillation type: chronic Qualified Code(s): I48.2 - Chronic atrial fibrillation (5) HTN (hypertension) Code(s): I10 - ESSENTIAL (PRIMARY) HYPERTENSION Qualifiers: Hypertension type: essential hypertension Qualified Code(s): I10 - Essential (primary) hypertension (6) CAD (coronary artery disease) Code(s): I25.10 - ATHSCL HEART DISEASE OF [place] CORONARY ARTERY W/O ANG PCTRS (7) COPD (chronic obstructive pulmonary disease) Code(s): J44.9 - CHRONIC OBSTRUCTIVE PULMONARY DISEASE, UNSPECIFIED (8) Carotid stenosis Code(s): I65.29 - OCCLUSION AND STENOSIS OF UNSPECIFIED CAROTID ARTERY (9) Diabetes Code(s): E11.9 - TYPE 2 DIABETES MELLITUS WITHOUT COMPLICATIONS (10) Lung cancer Code(s): C34.90 - MALIGNANT NEOPLASM OF UNSP PART OF UNSP BRONCHUS OR LUNG (11) PVD (peripheral vascular disease) Code(s): I73.9 - PERIPHERAL VASCULAR DISEASE, UNSPECIFIED
[2018-10-05] MEDS: SIMETHICONE 80 MG TAB.CHEW (FP) PO PRN ×2 (18:04→22:19)
[2018-10-05] MEDS: ALPRAZolam 0.25 MG TABLET PO PRN (22:15)
[2018-10-05] MEDS: LIDOCAINE PATCH REMOVAL MC SCH (22:35)
[2018-10-06] MEDS ORDERED: LACTATED RINGERS SOLUTION 1,000 ML/1,000 ML INFUS.BAG IV SCH ×4 (00:01→13:15)
[2018-10-06] MEDS ORDERED: ceFAZolin SODIUM 1 GM VIAL ONE (02:14)
[2018-10-06] MEDS ORDERED: DEXTROSE 5%-WATER - 50 ML IVPB ONE (02:14)
[2018-10-06] MEDS: CEFAZOLIN 1 GM in DEXTROSE 5%-WATER - 50 ML IVPB SCH ×3 (02:29→18:16)
[2018-10-06 07:39] LABS: BASO % 0.7 % (0-2.0); EOS % 2.2 % (0-4.5); HEMATOCRIT 42.1 % (32.4-45.2); LYMPH % 18.8 % (8-40); MCH 31.3 pg (25.7-33.7); MCHC 33.1 g/dl (32.0-36.0); MEAN CELL VOLUME 94.6 fl (80-96); MEAN PLT VOLUME 8.4 fl (7.5-11.1); MONO % 14.4 % (3.8-10.2); NEUT % 63.9 % (42.8-82.8); PLATELET COUNT 366 K/MM3 (134-434); RBC 4.46 M/mm3 (3.60-5.2); RDW 13.9 % (11.6-15.6); WHITE BLOOD COUNT 6.8 K/mm3 (4.0-10.0)
[2018-10-06 07:49] LABS: ALBUMIN 3.1 g/dl (3.4-5.0); BILIRUBIN,DIRECT 0.3 mg/dL (0.0-0.2); BILIRUBIN,TOTAL 0.7 mg/dL (0.2-1); BLOOD UREA NITROGEN 14.6 mg/dL (7-18); MAGNESIUM 1.9 mg/dL (1.8-2.4); PHOSPHOROUS 3.7 mg/dL (2.5-4.9); POTASSIUM 3.4 mmol/L (3.5-5.1); TOT PROT 6.3 g/dl (6.4-8.2)
[2018-10-06 07:53] LABS: INR 1.03 (0.83-1.09); PROTHROMBIN TIME (PATIENT) 12.1 SEC (9.7-13.0)
[2018-10-06] MEDS: BUDESONIDE 0.25 MG/2ML INH SUSP VIAL NEB SCH ×2 (08:00→20:29)
[2018-10-06] MEDS ORDERED: PT OWN MED DRAWER 7, Y5N ONE ×3 (08:19→18:37)
--- NOTE | 2018-10-06 08:51 | PN ---
Progress Note, Physician Chief Complaint: seen and examined on tele TELE: rate controlled AF. Denies CP or SOB - Current Medication List Current Medications: Active Medications Alprazolam (Xanax -) 0.25 mg PO Q8H PRN PRN Reason: ANXIETY Last Admin: 10/05/18 22:15 Dose: 0.25 mg Budesonide (Pulmicort 0.25 Mg Nebulizer -) 1 amp NEB RBID [facility] Last Admin: 10/06/18 08:00 Dose: 1 amp Diltiazem HCl (Cardizem Cd -) 300 mg PO DAILY [facility] Last Admin: 10/05/18 10:08 Dose: 300 mg Docusate Sodium (Colace -) 100 mg PO DAILY [facility] Last Admin: 10/05/18 10:08 Dose: 100 mg Enoxaparin Sodium (Lovenox -) 80 mg SQ BID [facility] Stop: 10/09/18 23:59 Last Admin: 10/05/18 10:09 Dose: 80 mg Escitalopram Oxalate (Lexapro -) 20 mg PO DAILY [facility] Last Admin: 10/05/18 10:09 Dose: 20 mg Cefazolin Sodium 1 gm/ (Dextrose) 50 mls @ 100 mls/hr IVPB Q8H-IV [facility] Last Admin: 10/06/18 02:29 Dose: 100 mls/hr Lidocaine (Lidoderm Patch -) 1 patch TP DAILY [facility] Last Admin: 10/05/18 10:49 Dose: 1 patch Metoprolol Succinate (Toprol Xl -) 50 mg PO HS [facility] Last Admin: 10/05/18 22:13 Dose: 50 mg Metoprolol Succinate (Toprol Xl -) 25 mg PO DAILY [facility] Last Admin: 10/05/18 10:10 Dose: 25 mg Miscellaneous (Lidoderm Patch Removal) 1 each MC DAILY@2200 [facility] Last Admin: 10/05/18 22:35 Dose: 1 each Non-Formulary Medication (Fluticasone Furoate [Arnuity Ellipta]) 50 mcg IH BID [facility] Simethicone (Mylicon -) 80 mg PO QID PRN PRN Reason: GAS Last Admin: 10/05/18 22:19 Dose: 80 mg Tiotropium [place] (Spiriva Respimat) 2 puff IH DAILY [facility] Last Admin: 10/05/18 10:10 Dose: 2 puff Torsemide (Demadex -) 50 mg PO DAILY [facility] Last Admin: 10/05/18 10:09 Dose: 50 mg - Objective Vital Signs: Vital Signs Temperature 98 F 10/06/18 05:52 Pulse Rate 75 10/06/18 05:52 Respiratory Rate 18 10/06/18 05:52 Blood Pressure 149/66 10/06/18 05:52 O2 Sat by Pulse Oximetry (%) 97 10/05/18 21:00 Constitutional: Yes: No Distress Eyes: Yes: Conjunctiva Clear Cardiovascular: Yes: Pulse Irregular Respiratory: Yes: CTA Bilaterally Gastrointestinal: Yes: Soft Edema: No Neurological: Yes: Alert, Oriented Labs: CBC, BMP 10/06/18 06:40 10/06/18 06:40 INR, PTT INR 1.03 (0.83-1.09) 10/06/18 06:40 - ....Imaging EKG: Image Reviewed Assessment/Plan IMP: 1. Choledocholithiasis, biliary duct dilatation 2. Permanent AF 3. CAD 4. PAD 5. Mitral regurgitation 6. COPD Cardiac evaluation prior to ERCP/possible cholecystectomy: -There are no absolute cardiac contraindications to ERCP, possible cholecystectomy. The patient would be considered moderate cardiac risk. Presently, she is euvolemic with no acute coronary syndrome and no unstable anginal symptoms. LVEF normal. There is no aortic stenosis. Her blood pressure is well controlled. - continue diltiazem, metoprolol - rate controlled - continue torsemide, euvolemic - Eliquis has been held as per GI, would resume AC after ERCP when feasible.
--- NOTE | 2018-10-06 09:41 | PN ---
Progress Note (short form) - Note Progress Note: Hospitalist to document today. Liver chemistries hd sudden increase on the morning's lab!
[2018-10-06] MEDS: TORSEMIDE 100 MG TABLET PO SCH (10:00)
[2018-10-06] MEDS ORDERED: MIDAZOLAM HCL 2 MG/2 ML SINGLE DOSE VIAL ONE (11:39)
[2018-10-06] MEDS ORDERED: ROCURONIUM BROMIDE 50 MG/5 ML VIAL ONE (11:39)
[2018-10-06] MEDS ORDERED: IOHEXOL 300 MG/ML INFUS..BTL IV ONE (12:15)
--- NOTE | 2018-10-06 13:04 | PN ---
Progress Note (short form) - Note Progress Note: GI Procedure Note: Please see ERCP report. Stone were found above a distal CBD stricture which precluded their removal The stricture was brushed for cytology and a 7Fr x 5cm length double pigtail stent was placed. I await cytologies. Cholecystectomy should be deferred. NO anticoagulation for 72 hours. She will likely need cholangioscopy at a tertiary care center. Problem List - Problems (1) Choledocholithiasis Code(s): K80.50 - CALCULUS OF BILE DUCT W/O CHOLANGITIS OR CHOLECYST W/O OBST (2) Elevated LFTs Code(s): R94.5 - ABNORMAL RESULTS OF LIVER FUNCTION STUDIES (3) Cholelithiasis Code(s): K80.20 - CALCULUS OF GALLBLADDER W/O CHOLECYSTITIS W/O OBSTRUCTION (4) Afib Code(s): I48.91 - UNSPECIFIED ATRIAL FIBRILLATION Qualifiers: Atrial fibrillation type: chronic Qualified Code(s): I48.2 - Chronic atrial fibrillation (5) HTN (hypertension) Code(s): I10 - ESSENTIAL (PRIMARY) HYPERTENSION Qualifiers: Hypertension type: essential hypertension Qualified Code(s): I10 - Essential (primary) hypertension (6) CAD (coronary artery disease) Code(s): I25.10 - ATHSCL HEART DISEASE OF [place] CORONARY ARTERY W/O ANG PCTRS (7) COPD (chronic obstructive pulmonary disease) Code(s): J44.9 - CHRONIC OBSTRUCTIVE PULMONARY DISEASE, UNSPECIFIED (8) Carotid stenosis Code(s): I65.29 - OCCLUSION AND STENOSIS OF UNSPECIFIED CAROTID ARTERY (9) Diabetes Code(s): E11.9 - TYPE 2 DIABETES MELLITUS WITHOUT COMPLICATIONS (10) Lung cancer Code(s): C34.90 - MALIGNANT NEOPLASM OF UNSP PART OF UNSP BRONCHUS OR LUNG (11) PVD (peripheral vascular disease) Code(s): I73.9 - PERIPHERAL VASCULAR DISEASE, UNSPECIFIED
--- NOTE | 2018-10-06 14:02 | PN ---
Progress Note, Physician - Current Medication List Current Medications: Active Medications Alprazolam (Xanax -) 0.25 mg PO Q8H PRN PRN Reason: ANXIETY Last Admin: 10/05/18 22:15 Dose: 0.25 mg Budesonide (Pulmicort 0.25 Mg Nebulizer -) 1 amp NEB RBID [facility] Last Admin: 10/06/18 08:00 Dose: 1 amp Diltiazem HCl (Cardizem Cd -) 300 mg PO DAILY [facility] Last Admin: 10/05/18 10:08 Dose: 300 mg Docusate Sodium (Colace -) 100 mg PO DAILY [facility] Last Admin: 10/05/18 10:08 Dose: 100 mg Escitalopram Oxalate (Lexapro -) 20 mg PO DAILY [facility] Last Admin: 10/05/18 10:09 Dose: 20 mg Cefazolin Sodium 1 gm/ (Dextrose) 50 mls @ 100 mls/hr IVPB Q8H-IV [facility] Last Admin: 10/06/18 02:29 Dose: 100 mls/hr Lactated Ringer's (Lactated Ringers Solution) 1,000 ml in 1,000 mls @ 83 mls/ hr IV ASDIR [facility] Lidocaine (Lidoderm Patch -) 1 patch TP DAILY [facility] Last Admin: 10/05/18 10:49 Dose: 1 patch Metoprolol Succinate (Toprol Xl -) 50 mg PO HS [facility] Last Admin: 10/05/18 22:13 Dose: 50 mg Metoprolol Succinate (Toprol Xl -) 25 mg PO DAILY [facility] Last Admin: 10/05/18 10:10 Dose: 25 mg Miscellaneous (Lidoderm Patch Removal) 1 each MC DAILY@2200 [facility] Last Admin: 10/05/18 22:35 Dose: 1 each Non-Formulary Medication (Fluticasone Furoate [Arnuity Ellipta]) 50 mcg IH BID [facility] Simethicone (Mylicon -) 80 mg PO QID PRN PRN Reason: GAS Last Admin: 10/05/18 22:19 Dose: 80 mg Tiotropium [place] (Spiriva Respimat) 2 puff IH DAILY [facility] Last Admin: 10/05/18 10:10 Dose: 2 puff Torsemide (Demadex -) 50 mg PO DAILY [facility] Last Admin: 10/05/18 10:09 Dose: 50 mg - Objective Vital Signs: Vital Signs Temperature 98.0 F 10/06/18 12:58 Pulse Rate 88 10/06/18 13:54 Respiratory Rate 16 10/06/18 13:54 Blood Pressure 119/74 10/06/18 13:54 O2 Sat by Pulse Oximetry (%) 97 10/06/18 13:54 Labs: CBC, BMP 10/06/18 06:40 10/06/18 06:40 INR, PTT INR 1.03 (0.83-1.09) 10/06/18 06:40
--- NOTE | 2018-10-06 14:14 | PN ---
Physical Exam: SUBJECTIVE: Patient seen and examined, had some right sided abdominal pain last night, denies currently, no nausea, vomiting or concerns otherwise. Awaiting ERCP. OBJECTIVE: Vital Signs Period Temp Pulse Resp BP Sys/Medley Pulse Ox Last 24 Hr 97.8 F-98.0 F 72-88 16-20 114-149/55-96 97-99 Intake & Output 10/03/18 10/04/18 10/05/18 10/06/18 23:59 23:59 23:59 23:59 Intake Total 920 1176 1090 560 Balance 920 1176 1090 560 Weight 179 lb 178 lb 176 lb 6.4 oz Intake & Output 10/03/18 10/04/18 10/05/18 10/06/18 23:59 23:59 23:59 23:59 Intake Total 920 1176 1090 560 Balance 920 1176 1090 560 Weight 179 lb 178 lb 176 lb 6.4 oz GENERAL: AA, no acute distress Neck: soft, supple, no JVD Chest: CTAB, no rales or wheezing Abdomen:soft, obese, NT throughout, ND, no voluntary or involuntary guarding or rigidity noted Extremities: no edema CVS:S1S2 irregular Laboratory Results - last 24 hr 10/06/18 10/06/18 10/06/18 06:40 06:40 06:40 WBC 6.8 RBC 4.46 Hgb 14.0 Hct 42.1 MCV 94.6 MCH 31.3 MCHC 33.1 RDW 13.9 Plt Count 366 MPV 8.4 Absolute Neuts (auto) 4.4 Neutrophils % 63.9 Lymphocytes % 18.8 Monocytes % 14.4 H Eosinophils % 2.2 Basophils % 0.7 Nucleated RBC % 0 PT with INR 12.10 INR 1.03 Sodium 138 Potassium 3.4 L Chloride 98 Carbon Dioxide 33 H Anion Gap 7 L BUN 14.6 Creatinine 1.0 Est GFR (CKD-EPI)AfAm 62.05 Est GFR (CKD-EPI)NonAf 53.54 Random Glucose 102 Calcium 9.0 Phosphorus 3.7 Magnesium 1.9 Total Bilirubin 0.7 Direct Bilirubin 0.3 H AST 467 H ALT 343 H Alkaline Phosphatase 561 H Total Protein 6.3 L Albumin 3.1 L Active Medications Generic Name Dose Route Start Last Admin Trade Name Freq PRN Reason Stop Dose Admin Alprazolam 0.25 mg 10/02/18 11:01 10/05/18 22:15 Xanax - PO 0.25 mg Q8H PRN Administration ANXIETY Budesonide 1 amp 10/02/18 08:00 10/06/18 08:00 Pulmicort 0.25 Mg Nebulizer - NEB 1 amp RBID [facility] Administration Diltiazem HCl 300 mg 10/02/18 10:00 10/05/18 10:08 Cardizem Cd - PO 300 mg DAILY [facility] Administration Docusate Sodium 100 mg 10/02/18 10:00 10/05/18 10:08 Colace - PO 100 mg DAILY [facility] Administration Escitalopram Oxalate 20 mg 10/02/18 10:00 10/05/18 10:09 Lexapro - PO 20 mg DAILY [facility] Administration Cefazolin Sodium 1 gm/ 50 mls @ 100 mls/hr 10/03/18 18:00 10/06/18 02:29 Dextrose IVPB 100 mls/hr Q8H-IV [facility] Administration Lactated Ringer's 1,000 ml in 1,000 mls @ 83 mls/hr 10/06/18 13:15 Lactated Ringers Solution IV ASDIR [facility] Lidocaine 1 patch 10/05/18 10:15 10/05/18 10:49 Lidoderm Patch - TP 1 patch DAILY [facility] Administration Metoprolol Succinate 50 mg 10/02/18 22:00 10/05/18 22:13 Toprol Xl - PO 50 mg HS [facility] Administration Metoprolol Succinate 25 mg 10/02/18 10:00 10/05/18 10:10 Toprol Xl - PO 25 mg DAILY [facility] Administration Miscellaneous 1 each 10/05/18 22:00 10/05/18 22:35 Lidoderm Patch Removal MC 1 each DAILY@2200 [facility] Administration Non-Formulary Medication 50 mcg 10/02/18 10:00 Fluticasone Furoate [Arnuity Ellipta] IH BID [facility] Simethicone 80 mg 10/02/18 11:01 10/05/18 22:19 Mylicon - PO 80 mg QID PRN Administration GAS Tiotropium [place] 2 puff 10/02/18 10:00 10/05/18 10:10 Spiriva Respimat IH 2 puff DAILY [facility] Administration Torsemide 50 mg 10/02/18 10:00 10/05/18 10:09 Demadex - PO 50 mg DAILY [facility] Administration ASSESSMENT/PLAN: 78yo M wtih PMH COPD, HTN, DM, CAD, lung ca, DANIELLE on CPAP, CAD s/p CABG, afib on eliquis sent for emergent CT with contrast finding she had choledocholithasis with increased extrahepatic and intrahepatic biliary duct dilation and was sent to the ER for intervention -Choledocholithiasis with extra/intra hepatic biliary ductal dilatation and biliary stricture s/p stent placement. -Abnormal LFTs, from above -Uncontrolled HTN, from anxiety, improved -COPD -Diet controlled DM -Afibi with RVR, resolved, on eliquis -CAD s/p CABG -DANIELLE on CPAP Plan: ERCP results noted. Discussed with Dr. Hobson. Plan for outpatient follow up for cholangioscopy No AC for 72 hours. Monitor 24-48 hours D/cplannig with outpatient follow up for cholangioscopy if tolerating diet well and labs continue to improve. Surgery consulted Further CCY plans on hold given above, will need outaptient follow up. Prophylactic cefazolin day 4 per GI. Cardiology input noted. Continue diltiazem/metoprolol Eliquis/lovenox on hold as above. ISS, A1c noted. Continue CPAP Lidocaine patch Dispo in 24-48 hours if continues to improve and no concerns. Plan discussed with patient and nursing, all questions answered. Visit type - Emergency Visit Emergency Visit: Yes ED Registration Date: 10/01/18 Care time: The patient presented to the Emergency Department on the above date and was hospitalized for further evaluation of their emergent condition. - New Patient This patient is new to me today: No - Critical Care Critical Care patient: No - Discharge Referral Referred to [facility] Med P.C.: No
--- NOTE | 2018-10-06 14:22 | CONSULT ---
Consult Consult Specialty:: General Surgery Reason for Consultation:: Cholecystitis? - History of Present Illness Chief Complaint: Abdominal Pain History of Present Illness: 78 yo female with COPD, pulmonary HTN, previous lung cancer, atrial fibrillation , CAD, HTN, and hyperlipidemia presents to ED for elevated LFTs. She was seen by her PCP last week for a routine visit and went back on 10/01/18 for lab work. She reports lab work 3 months ago that showed elevated LFTs and the most recent labs were increased from the previous ones. She reports occasional indigestion following meals, as well as gas. She denies any abdominal pain, nausea, vomiting, or loss of appetite. Her diet does not include many fried or fatty foods. She reports normal bowel movements and no dysuria. We were called to assess. - History Source History Provided By: Patient, Medical Record Limitations to Obtaining History: No Limitations - Past Medical History Cardio/Vascular: Yes: AFIB (now in NSR), CAD, HTN Pulmonary: Yes: COPD, Sleep Apnea Psych: Yes: Anxiety Musculoskeletal: Yes: Chronic low back pain Endocrine: Yes: Diabetes Mellitus (partial lobectomy lung CA) - Past Surgical History Past Surgical History: Yes: Bypass (Fem-Fem), CABG, Thoracotomy - Alcohol/Substance Use Hx Alcohol Use: No History of Substance Use: reports: None - Smoking History Smoking history: Former smoker Have you smoked in the past 12 months: No Aproximately how many cigarettes per day: 0 If you are a former smoker, when did you quit?: 8YRS AGO - Social History Usual Living Arrangement: Alone ADL: Independent Occupation: retired History of Recent Travel: No Home Medications - Allergies Allergies/Adverse Reactions: Allergies Allergy/AdvReac Type Severity Reaction Status Date / Time No Known Drug Allergies Allergy Verified 10/01/18 19:23 - Home Medications Home Medications: Ambulatory Orders Alprazolam [Xanax] 0.25 mg PO Q6H PRN #0 tablet 11/24/12 Escitalopram Oxalate [Lexapro -] 20 mg PO DAILY 03/15/14 Omeprazole [Prilosec] 20 mg PO DAILY 03/15/14 Diltiazem HCl [Cardizem [place]] 300 mg PO DAILY 02/16/15 Apixaban [Eliquis] 5 mg PO BID 02/17/15 Metoprolol Succinate [Toprol Xl] 50 mg PO HS 02/17/15 Metoprolol Succinate [Toprol XL -] 25 mg PO DAILY 08/28/16 Acetaminophen [Tylenol .Regular Strength -] 650 mg PO Q6H PRN #0 tablet Magnesium Chloride [Slow-Mag -] 128 mg PO DAILY tab 09/03/16 Alprazolam [Xanax] 0.25 mg PO DAILY 10/01/18 Budesonide [Pulmicort 0.25 mg Nebulizer -] 180 mcg IH BID 10/01/18 Cholecalciferol (Vitamin D3) [Vitamin D3 -] 400 unit PO DAILY 10/01/18 Docusate Sodium [Colace] 100 mg PO DAILY 10/01/18 Potassium Chloride 10 meq PO DAILY 10/02/18 Tiotropium [place] [Spiriva] 18 mcg IH DAILY 10/02/18 Torsemide 50 mg PO DAILY 10/02/18 Family Disease History - Family Disease History Family Disease History: [place]: Father (larynx 58), Other: Mother (CVA 80; hx breast Ca) Review of Systems - Review of Systems Constitutional: denies: Chills, Fever Eyes: denies: Blind Spots, Blurred Vision HENT: denies: Difficult Swallowing, Throat Pain Neck: denies: Pain on Movement, Tenderness Cardiovascular: denies: Chest Pain, Palpitations Respiratory: denies: Cough, SOB Gastrointestinal: denies: Constipation, Diarrhea Genitourinary: denies: Discharge, Dysuria Breasts: reports: No Symptoms Reported. denies: Pain Musculoskeletal: denies: Back Pain, Muscle Pain Integumentary: denies: Erythema, Pallor, Rash Neurological: denies: Seizure, Syncope Endocrine: denies: Unexplained Weight Gain, Unexplained Weight Loss Hematology/Lymphatic: denies: Easily Bruised, Excessive Bleeding Psychiatric: denies: Anxiety, Depression Physical Exam Vital Signs: Vital Signs Temperature 98.0 F 10/06/18 12:58 Pulse Rate 88 10/06/18 13:54 Respiratory Rate 16 10/06/18 13:54 Blood Pressure 119/74 10/06/18 13:54 O2 Sat by Pulse Oximetry (%) 97 10/06/18 13:54 Vital Signs Period Temp Pulse Resp BP Sys/Medley Pulse Ox Last 24 Hr 98.0 F-98.6 F 80-99 18-20 115-152/60-89 96-96 Intake & Output 10/07/18 10/07/18 10/07/18 07:59 15:59 23:59 Intake Total 963 Balance 963 Intake: IV 913 LACTATED RINGERS SOLUTION 913 1,000 ml In 1,000 ml @ 83 mls/hr IV ASDIR [facility] Rx #:[id number] IVPB 50 Other: Voiding Method Toilet Toilet # Unmeasured Voids Void 2 Bowel Movement No Constitutional: Yes: Well Nourished, No Distress, Calm Eyes: Yes: Conjunctiva Clear, EOM Intact HENT: Yes: Atraumatic, Normocephalic Neck: Yes: Supple, Trachea Midline Cardiovascular: Yes: Regular Rate and Rhythm, S1, S2 Respiratory: Yes: Regular, CTA Bilaterally Gastrointestinal: Yes: Normal Bowel Sounds, Soft, Distention. No: Tenderness ...Rectal Exam: Yes: Deferred Renal/: No: CVA Tenderness - Left, CVA Tenderness - Right Musculoskeletal: No: Muscle Pain, Muscle Weakness Extremities: No: Cool, Cyanosis Edema: No Peripheral Pulses WNL: Yes Integumentary: No: Jaundice, Rash Neurological: Yes: Alert, Oriented Psychiatric: Yes: Alert, Oriented Labs: CBC, BMP 10/06/18 06:40 10/06/18 06:40 Imaging - Results Cat Scan: Report Reviewed, Image Reviewed Ultrasound: Report Reviewed, Image Reviewed Problem List - Problems (1) Choledocholithiasis Assessment/Plan: 78 yo female with choledocholithiasis, Per GI the patient will need cholangioscopy at tertiary center center. Agree with the transfer to [facility] Thank you for the opportunity to participate in the care of this patient. Code(s): K80.50 - CALCULUS OF BILE DUCT W/O CHOLANGITIS OR CHOLECYST W/O OBST (2) Afib Code(s): I48.91 - UNSPECIFIED ATRIAL FIBRILLATION Qualifiers: Atrial fibrillation type: chronic Qualified Code(s): I48.2 - Chronic atrial fibrillation (3) Cholelithiasis Code(s): K80.20 - CALCULUS OF GALLBLADDER W/O CHOLECYSTITIS W/O OBSTRUCTION (4) Elevated LFTs Code(s): R94.5 - ABNORMAL RESULTS OF LIVER FUNCTION STUDIES (5) CAD (coronary artery disease) Code(s): I25.10 - ATHSCL HEART DISEASE OF [place] CORONARY ARTERY W/O ANG PCTRS (6) COPD (chronic obstructive pulmonary disease) Code(s): J44.9 - CHRONIC OBSTRUCTIVE PULMONARY DISEASE, UNSPECIFIED (7) Dyslipidemia Code(s): E78.5 - HYPERLIPIDEMIA, UNSPECIFIED (8) PVD (peripheral vascular disease) Code(s): I73.9 - PERIPHERAL VASCULAR DISEASE, UNSPECIFIED
[2018-10-06] MEDS: LIDOCAINE 5% TOPICAL PATCH TP SCH (18:16)
[2018-10-06] MEDS: metoPROLOL SUCCINATE 25 MG TAB.SR.24H (FP) PO SCH (18:22)
[2018-10-06] MEDS: ESCITALOPRAM OXALATE 20 MG TABLET (FP) PO SCH (18:22)
[2018-10-06] MEDS: TIOTROPIUM BROMIDE 2.5 MCG (SPIRIVA) RESPIMAT INHALER IH SCH (18:23)
[2018-10-06] MEDS: DOCUSATE SODIUM 100 MG CAPSULE (FP) PO SCH (18:26)
[2018-10-07] MEDS ORDERED: ceFAZolin SODIUM 1 GM VIAL ONE ×2 (02:45→17:34)
[2018-10-07] MEDS ORDERED: DEXTROSE 5%-WATER - 50 ML IVPB ONE ×2 (02:45→17:35)
[2018-10-07] MEDS: CEFAZOLIN 1 GM in DEXTROSE 5%-WATER - 50 ML IVPB SCH ×3 (02:57→17:38)
[2018-10-07 07:55] LABS: BASO % 0.1 % (0-2.0); HEMATOCRIT 38.9 % (32.4-45.2); HEMOGLOBIN 13.3 GM/dL (10.7-15.3); LYMPH % 10.6 % (8-40); MCH 32.1 pg (25.7-33.7); MCHC 34.1 g/dl (32.0-36.0); MEAN PLT VOLUME 8.2 fl (7.5-11.1); MONO % 9.1 % (3.8-10.2); NEUT % 80.2 % (42.8-82.8); PLATELET COUNT 385 K/MM3 (134-434); RBC 4.13 M/mm3 (3.60-5.2); RDW 13.8 % (11.6-15.6); WHITE BLOOD COUNT 7.7 K/mm3 (4.0-10.0)
[2018-10-07] MEDS: BUDESONIDE 0.25 MG/2ML INH SUSP VIAL NEB SCH ×2 (08:30→21:05)
[2018-10-07 08:34] LABS: BILIRUBIN,DIRECT 0.2 mg/dL (0.0-0.2); BILIRUBIN,TOTAL 0.8 mg/dL (0.2-1); BLOOD UREA NITROGEN 12.2 mg/dL (7-18); CALCIUM 9.1 mg/dL (8.5-10.1); CREATININE 0.8 mg/dL (0.55-1.3); POTASSIUM 4.2 mmol/L (3.5-5.1); TOT PROT 6.2 g/dl (6.4-8.2)
--- NOTE | 2018-10-07 09:33 | PN ---
Physical Exam: SUBJECTIVE: Patient seen and examined, some abdominal pain last night, currently improved. Tolerating clears well, asking for solid diet. OBJECTIVE: Vital Signs Period Temp Pulse Resp BP Sys/Medley Pulse Ox Last 24 Hr 97.4 F-98.2 F 79-114 16-22 114-152/55-96 96-99 Intake & Output 10/04/18 10/05/18 10/06/18 10/07/18 23:59 23:59 23:59 23:59 Intake Total 1176 1090 860 963 Balance 1176 1090 860 963 Weight 178 lb 176 lb 6.4 oz GENERAL: sitting in bed in no acute distress Chest: CTAB, no rales or wheezing CVS:S1s2 irregular Abdomen: soft, mild RUQ tenderness, no voluntary or involuntary guarding or rigidity, pos bowel sounds Extremities: no edema Psych: pleasant, co-operative Laboratory Results - last 24 hr 10/07/18 10/07/18 10/07/18 07:15 07:15 07:15 WBC 7.7 RBC 4.13 Hgb 13.3 Hct 38.9 MCV 94.0 MCH 32.1 MCHC 34.1 RDW 13.8 Plt Count 385 MPV 8.2 Absolute Neuts (auto) 6.2 Neutrophils % 80.2 D Lymphocytes % 10.6 D Monocytes % 9.1 Eosinophils % 0.0 D Basophils % 0.1 Nucleated RBC % 0 Sodium 140 Potassium 4.2 Chloride 101 Carbon Dioxide 31 Anion Gap 8 BUN 12.2 Creatinine 0.8 Est GFR (CKD-EPI)AfAm 81.27 Est GFR (CKD-EPI)NonAf 70.12 Random Glucose 117 H Calcium 9.1 Total Bilirubin 0.8 Direct Bilirubin 0.2 AST 126 H ALT 174 H Alkaline Phosphatase 463 H C-Reactive Protein 0.8 H Total Protein 6.2 L Albumin 3.0 L Total Amylase 26 Lipase 110 Active Medications Generic Name Dose Route Start Last Admin Trade Name Freq PRN Reason Stop Dose Admin Alprazolam 0.25 mg 10/02/18 11:01 10/05/18 22:15 Xanax - PO 0.25 mg Q8H PRN Administration ANXIETY Budesonide 1 amp 10/02/18 08:00 10/07/18 08:30 Pulmicort 0.25 Mg Nebulizer - NEB 1 amp RBID TIARA Administration Diltiazem HCl 300 mg 10/02/18 10:00 10/06/18 18:22 Cardizem Cd - PO 300 mg DAILY TIARA Administration Docusate Sodium 100 mg 10/02/18 10:00 10/06/18 18:26 Colace - PO 100 mg DAILY TIARA Administration Escitalopram Oxalate 20 mg 10/02/18 10:00 10/06/18 18:22 Lexapro - PO 20 mg DAILY TIARA Administration Cefazolin Sodium 1 gm/ 50 mls @ 100 mls/hr 10/03/18 18:00 10/07/18 02:57 Dextrose IVPB 100 mls/hr Q8H-IV TIARA Administration Lidocaine 1 patch 10/05/18 10:15 10/06/18 18:16 Lidoderm Patch - TP 1 patch DAILY TIARA Administration Metoprolol Succinate 50 mg 10/02/18 22:00 10/06/18 22:15 Toprol Xl - PO 50 mg HS TIARA Administration Metoprolol Succinate 25 mg 10/02/18 10:00 10/06/18 18:22 Toprol Xl - PO 25 mg DAILY TIARA Administration Miscellaneous 1 each 10/05/18 22:00 10/05/18 22:35 Lidoderm Patch Removal MC 1 each DAILY@2200 TIARA Administration Non-Formulary Medication 50 mcg 10/02/18 10:00 Fluticasone Furoate [Arnuity Ellipta] IH BID TIARA Simethicone 80 mg 10/02/18 11:01 10/05/18 22:19 Mylicon - PO 80 mg QID PRN Administration GAS Tiotropium [place] 2 puff 10/02/18 10:00 10/06/18 18:23 Spiriva Respimat IH 2 puff DAILY TIARA Administration Torsemide 50 mg 10/02/18 10:00 10/06/18 10:00 Demadex - PO Not Given DAILY TIARA telemetry: Afib transient 110s, controlled this AM ASSESSMENT/PLAN: 78yo M wtih PMH COPD, HTN, DM, CAD, lung ca, DANIELLE on CPAP, CAD s/p CABG, afib on eliquis sent for emergent CT with contrast finding she had choledocholithasis with increased extrahepatic and intrahepatic biliary duct dilation and was sent to the ER for intervention -Choledocholithiasis with extra/intra hepatic biliary ductal dilatation and biliary stricture s/p stent placement. -Abnormal LFTs, from above -Uncontrolled HTN, from anxiety, improved -COPD -Diet controlled DM -Afibi with RVR, resolved, on eliquis -CAD s/p CABG -DANIELLE on CPAP Plan: ERCP results noted. Biliary stricture s/p stent placement, unable to retrive stones. Discussed with Dr. Hobson. Plan for outpatient follow up for cholangioscopy No AC for 72 hours. (patient aware) Further CCY plans on hold given above, will need outaptient follow up. LFTs improved, advance to solid diet. D/c IVF. Prophylactic cefazolin day 5 per GI. Cardiology input noted. Continue diltiazem/metoprolol Eliquis/lovenox on hold as above. ISS, A1c noted. Continue CPAP Lidocaine patch Dispo dc in 24 hours if tolerating diet well, continues to improve with outpatient follow up for cholangioscopy and eventual CCY. Plan discussed with patient and nursing, all questions answered. Visit type - Emergency Visit Emergency Visit: Yes ED Registration Date: 10/01/18 Care time: The patient presented to the Emergency Department on the above date and was hospitalized for further evaluation of their emergent condition. - New Patient This patient is new to me today: No - Critical Care Critical Care patient: No - Discharge Referral Referred to [facility] Med [facility].C[facility] No
[2018-10-07] MEDS: TIOTROPIUM BROMIDE 2.5 MCG (SPIRIVA) RESPIMAT INHALER IH SCH (10:10)
[2018-10-07] MEDS ORDERED: PT OWN MED DRAWER 7, Y5N ONE ×2 (10:29→21:02)
[2018-10-07] MEDS: metoPROLOL SUCCINATE 25 MG TAB.SR.24H (FP) PO SCH (10:35)
[2018-10-07] MEDS: DOCUSATE SODIUM 100 MG CAPSULE (FP) PO SCH (10:35)
[2018-10-07] MEDS: ESCITALOPRAM OXALATE 20 MG TABLET (FP) PO SCH (10:35)
[2018-10-07] MEDS: TORSEMIDE 100 MG TABLET PO SCH (10:40)
[2018-10-07] MEDS: LIDOCAINE 5% TOPICAL PATCH TP SCH (10:41)
--- NOTE | 2018-10-07 11:14 | PN ---
Progress Note (short form) - Note Progress Note: s: no chest pain, palps, dizziness, dyspnea TELE: rate controlled AF. Current Medications Alprazolam (Xanax -) 0.25 mg PO Q8H PRN PRN Reason: ANXIETY Last Admin: 10/05/18 22:15 Dose: 0.25 mg Budesonide (Pulmicort 0.25 Mg Nebulizer -) 1 amp NEB RBID [facility] Last Admin: 10/07/18 08:30 Dose: 1 amp Diltiazem HCl (Cardizem Cd -) 300 mg PO DAILY [facility] Last Admin: 10/07/18 10:41 Dose: 300 mg Docusate Sodium (Colace -) 100 mg PO DAILY [facility] Last Admin: 10/07/18 10:35 Dose: 100 mg Escitalopram Oxalate (Lexapro -) 20 mg PO DAILY [facility] Last Admin: 10/07/18 10:35 Dose: 20 mg Cefazolin Sodium 1 gm/ (Dextrose) 50 mls @ 100 mls/hr IVPB Q8H-IV [facility] Last Admin: 10/07/18 02:57 Dose: 100 mls/hr Lidocaine (Lidoderm Patch -) 1 patch TP DAILY [facility] Last Admin: 10/07/18 10:41 Dose: 1 patch Metoprolol Succinate (Toprol Xl -) 50 mg PO HS [facility] Last Admin: 10/06/18 22:15 Dose: 50 mg Metoprolol Succinate (Toprol Xl -) 25 mg PO DAILY [facility] Last Admin: 10/07/18 10:35 Dose: 25 mg Miscellaneous (Lidoderm Patch Removal) 1 each MC DAILY@2200 [facility] Last Admin: 10/05/18 22:35 Dose: 1 each Non-Formulary Medication (Fluticasone Furoate [Arnuity Ellipta]) 50 mcg IH BID [facility] Simethicone (Mylicon -) 80 mg PO QID PRN PRN Reason: GAS Last Admin: 10/05/18 22:19 Dose: 80 mg Tiotropium [place] (Spiriva Respimat) 2 puff IH DAILY [facility] Last Admin: 10/06/18 18:23 Dose: 2 puff Torsemide (Demadex -) 50 mg PO DAILY [facility] Last Admin: 10/07/18 10:40 Dose: 50 mg Vital Signs Period Temp Pulse Resp BP Sys/Medley Pulse Ox Last 24 Hr 97.4 F-98.2 F 79-114 16-22 114-152/55-90 96-99 Constitutional: Yes: No Distress Eyes: Yes: Conjunctiva Clear Cardiovascular: Yes: Pulse Irregular Respiratory: Yes: CTA Bilaterally Gastrointestinal: Yes: Soft Edema: No Neurological: Yes: Alert, Oriented no jaundice, diaphoresis not agitated - ....Imaging EKG: Image Reviewed Assessment/Plan IMP: 1. Choledocholithiasis, biliary duct dilatation 2. Permanent AF 3. CAD 4. PAD 5. Mitral regurgitation 6. COPD - s/p ERCP, CBD stricture - deferring cholecystectomy with plan for outpatient cholangioscopy - holding anticoagulation for 72 hours per GI - continue diltiazem, metoprolol - rate controlled - continue torsemide, euvolemic
[2018-10-07] MEDS: LIDOCAINE PATCH REMOVAL MC SCH ×2 (11:18→21:33)
[2018-10-07] MEDS: SIMETHICONE 80 MG TAB.CHEW (FP) PO PRN ×2 (15:44→19:47)
--- NOTE | 2018-10-07 20:18 | PN.GI ---
GI Progress Note Subjective: GI Note: No evidence of pancreatitis and LFTs normalizing but has bloating discomfort. Discussed findings again and the need to followup with Dr. Derik Mitchell - Objective Vital Signs: Vital Signs Temperature 98.5 F 10/07/18 17:00 Pulse Rate 77 10/07/18 17:00 Respiratory Rate 20 10/07/18 17:00 Blood Pressure 137/64 10/07/18 17:00 O2 Sat by Pulse Oximetry (%) 96 10/07/18 09:00 Laboratory Tests 10/06/18 10/07/18 10/07/18 06:40 07:15 07:15 AST 467 H 126 H ALT 343 H 174 H Alkaline Phosphatase 561 H 463 H C-Reactive Protein 0.8 H Total Amylase 26 Lipase 110 CA 19-9 Antigen 10/07/18 07:15 AST ALT Alkaline Phosphatase C-Reactive Protein Total Amylase Lipase CA 19-9 Antigen Pending Constitutional: Anxious ...Auscultate: Yes: Normoactive Bowel Sounds ...Palpate: Yes: Soft, Other (nontender) Labs: CBC, BMP 10/07/18 07:15 10/07/18 07:15 INR, PTT INR 1.03 (0.83-1.09) 10/06/18 06:40 Assessment/Plan Impression: - Elevated LFTs due to CBD stones with stricture- benign inflammatory vs cholangiocarcinoma or pancreatic cancer. - Cholelithiasis Plan: -- Continue Kefzol given cholangitis risk -- Eliquis being held given the sphincterotomy -- Cholecystectomy postponed as we await cytology -- Will need cholangioscopy at tertiary center center. Her was treated for cholangiocarcinoma by Dr. Mitchell at [facility]. I gave her his phone number Problem List - Problems (1) Choledocholithiasis Code(s): K80.50 - CALCULUS OF BILE DUCT W/O CHOLANGITIS OR CHOLECYST W/O OBST (2) Elevated LFTs Code(s): R94.5 - ABNORMAL RESULTS OF LIVER FUNCTION STUDIES (3) Cholelithiasis Code(s): K80.20 - CALCULUS OF GALLBLADDER W/O CHOLECYSTITIS W/O OBSTRUCTION (4) Afib Code(s): I48.91 - UNSPECIFIED ATRIAL FIBRILLATION Qualifiers: Atrial fibrillation type: chronic Qualified Code(s): I48.2 - Chronic atrial fibrillation (5) HTN (hypertension) Code(s): I10 - ESSENTIAL (PRIMARY) HYPERTENSION Qualifiers: Hypertension type: essential hypertension Qualified Code(s): I10 - Essential (primary) hypertension (6) CAD (coronary artery disease) Code(s): I25.10 - ATHSCL HEART DISEASE OF [place] CORONARY ARTERY W/O ANG PCTRS (7) COPD (chronic obstructive pulmonary disease) Code(s): J44.9 - CHRONIC OBSTRUCTIVE PULMONARY DISEASE, UNSPECIFIED (8) Carotid stenosis Code(s): I65.29 - OCCLUSION AND STENOSIS OF UNSPECIFIED CAROTID ARTERY (9) Diabetes Code(s): E11.9 - TYPE 2 DIABETES MELLITUS WITHOUT COMPLICATIONS (10) Lung cancer Code(s): C34.90 - MALIGNANT NEOPLASM OF UNSP PART OF UNSP BRONCHUS OR LUNG (11) PVD (peripheral vascular disease) Code(s): I73.9 - PERIPHERAL VASCULAR DISEASE, UNSPECIFIED (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
[2018-10-07] MEDS: ALPRAZolam 0.25 MG TABLET PO PRN (21:33)
[2018-10-08] MEDS ORDERED: ceFAZolin SODIUM 1 GM VIAL ONE ×2 (01:05→11:03)
[2018-10-08] MEDS ORDERED: DEXTROSE 5%-WATER - 50 ML IVPB ONE ×2 (01:05→11:03)
[2018-10-08] MEDS: CEFAZOLIN 1 GM in DEXTROSE 5%-WATER - 50 ML IVPB SCH ×2 (02:45→11:04)
[2018-10-08 06:39] VITALS: BP 136/86; PULSE 80; TEMP 98.6
[2018-10-08 08:08] LABS: ALBUMIN 3.2 g/dl (3.4-5.0); BILIRUBIN,TOTAL 0.8 mg/dL (0.2-1); BLOOD UREA NITROGEN 15.1 mg/dL (7-18); CALCIUM 9.2 mg/dL (8.5-10.1); CREATININE 0.9 mg/dL (0.55-1.3); MAGNESIUM 2.2 mg/dL (1.8-2.4); PHOSPHOROUS 3.5 mg/dL (2.5-4.9); POTASSIUM 4.1 mmol/L (3.5-5.1); TOT PROT 6.6 g/dl (6.4-8.2)
[2018-10-08] MEDS: BUDESONIDE 0.25 MG/2ML INH SUSP VIAL NEB SCH (08:09)
[2018-10-08 08:13] LABS: BASO % 0.7 % (0-2.0); EOS % 1.1 % (0-4.5); HEMATOCRIT 40.6 % (32.4-45.2); HEMOGLOBIN 13.7 GM/dL (10.7-15.3); LYMPH % 27.1 % (8-40); MCH 31.8 pg (25.7-33.7); MCHC 33.7 g/dl (32.0-36.0); MEAN CELL VOLUME 94.2 fl (80-96); MEAN PLT VOLUME 8.4 fl (7.5-11.1); MONO % 10.5 % (3.8-10.2); NEUT % 60.6 % (42.8-82.8); PLATELET COUNT 421 K/MM3 (134-434); RBC 4.31 M/mm3 (3.60-5.2); RDW 13.6 % (11.6-15.6); WHITE BLOOD COUNT 8.7 K/mm3 (4.0-10.0)
--- NOTE | 2018-10-08 08:42 | PN ---
Progress Note (short form) - Note Progress Note: Hospitalist to document today. Liver chemistries improved. Await decision for home when Eliquis restarted. ( Sphincterotomy 10/06/18) She will call Dr. Mitchell at [facility] when home.
[2018-10-08] MEDS ORDERED: PT OWN MED DRAWER 7, Y5N ONE (10:35)
[2018-10-08] MEDS: TORSEMIDE 100 MG TABLET PO SCH (10:47)
[2018-10-08] MEDS: DOCUSATE SODIUM 100 MG CAPSULE (FP) PO SCH (10:47)
[2018-10-08] MEDS: ESCITALOPRAM OXALATE 20 MG TABLET (FP) PO SCH (10:49)
[2018-10-08] MEDS: LIDOCAINE 5% TOPICAL PATCH TP SCH (10:49)
[2018-10-08] MEDS: TIOTROPIUM BROMIDE 2.5 MCG (SPIRIVA) RESPIMAT INHALER IH SCH (10:49)
[2018-10-08] MEDS: metoPROLOL SUCCINATE 25 MG TAB.SR.24H (FP) PO SCH (10:50)
[2018-10-08] MEDS: SIMETHICONE 80 MG TAB.CHEW (FP) PO PRN (11:05)
--- NOTE | 2018-10-08 11:09 | PN ---
Progress Note (short form) - Note Progress Note: s: no chest pain, dizziness, dyspnea. episode of palps this morning, rate controlled afib on tele. TELE: rate controlled AF. Current Medications Alprazolam (Xanax -) 0.25 mg PO Q8H PRN PRN Reason: ANXIETY Last Admin: 10/07/18 21:33 Dose: 0.25 mg Budesonide (Pulmicort 0.25 Mg Nebulizer -) 1 amp NEB RBID [facility] Last Admin: 10/08/18 08:09 Dose: 1 amp Diltiazem HCl (Cardizem Cd -) 300 mg PO DAILY [facility] Last Admin: 10/08/18 10:46 Dose: 300 mg Docusate Sodium (Colace -) 100 mg PO DAILY [facility] Last Admin: 10/08/18 10:47 Dose: 100 mg Escitalopram Oxalate (Lexapro -) 20 mg PO DAILY [facility] Last Admin: 10/08/18 10:49 Dose: 20 mg Cefazolin Sodium 1 gm/ (Dextrose) 50 mls @ 100 mls/hr IVPB Q8H-IV [facility] Last Admin: 10/08/18 11:04 Dose: 100 mls/hr Lidocaine (Lidoderm Patch -) 1 patch TP DAILY [facility] Last Admin: 10/08/18 10:49 Dose: 1 patch Metoprolol Succinate (Toprol Xl -) 50 mg PO HS [facility] Last Admin: 10/07/18 21:33 Dose: 50 mg Metoprolol Succinate (Toprol Xl -) 25 mg PO DAILY [facility] Last Admin: 10/08/18 10:50 Dose: 25 mg Miscellaneous (Lidoderm Patch Removal) 1 each MC DAILY@2200 [facility] Last Admin: 10/07/18 21:33 Dose: 1 each Non-Formulary Medication (Fluticasone Furoate [Arnuity Ellipta]) 50 mcg IH BID [facility] Simethicone (Mylicon -) 80 mg PO QID PRN PRN Reason: GAS Last Admin: 10/08/18 11:05 Dose: 80 mg Tiotropium [place] (Spiriva Respimat) 2 puff IH DAILY [facility] Last Admin: 10/08/18 10:49 Dose: 2 puff Torsemide (Demadex -) 50 mg PO DAILY [facility] Last Admin: 10/08/18 10:47 Dose: 50 mg Vital Signs Period Temp Pulse Resp BP Sys/Medley Pulse Ox Last 24 Hr 97.9 F-98.6 F 77-92 17-20 115-140/60-86 96 Constitutional: Yes: No Distress Eyes: Yes: Conjunctiva Clear Cardiovascular: Yes: Pulse Irregular Respiratory: Yes: CTA Bilaterally Gastrointestinal: Yes: Soft Edema: No Neurological: Yes: Alert, Oriented no jaundice, diaphoresis not agitated - ....Imaging EKG: Image Reviewed Assessment/Plan IMP: 1. Choledocholithiasis, biliary duct dilatation 2. Permanent AF 3. CAD 4. PAD 5. Mitral regurgitation 6. COPD - s/p ERCP, CBD stricture - deferring cholecystectomy with plan for outpatient cholangioscopy - holding anticoagulation for 72 hours from ERCP per GI - continue diltiazem, metoprolol - rate controlled - continue torsemide, euvolemic
--- NOTE | 2018-10-08 12:10 | PN.GI ---
GI Progress Note Subjective: GI NOte: No pain. Feeling better. Cytology not yet back. LFTs normalizing. - Objective Vital Signs: Vital Signs Temperature 98.6 F 10/08/18 06:00 Pulse Rate 80 10/08/18 06:00 Respiratory Rate 17 10/08/18 06:00 Blood Pressure 136/86 10/08/18 06:00 O2 Sat by Pulse Oximetry (%) 96 10/07/18 21:00 Laboratory Tests 10/05/18 10/06/18 10/07/18 06:25 06:40 07:15 Total Bilirubin 0.5 0.8 AST 54 H 467 H 126 H ALT 111 H 343 H 174 H Alkaline Phosphatase 451 H 561 H 463 H C-Reactive Protein CA 19-9 Antigen 10/07/18 10/07/18 10/08/18 07:15 07:15 07:18 Total Bilirubin 0.8 AST 65 H ALT 109 H Alkaline Phosphatase 408 H C-Reactive Protein 0.8 H CA 19-9 Antigen 22 Constitutional: Calm ...Auscultate: Yes: Normoactive Bowel Sounds ...Palpate: Yes: Soft, Other (nontender) Labs: CBC, BMP 10/08/18 07:18 10/08/18 07:18 INR, PTT INR 1.03 (0.83-1.09) 10/06/18 06:40 Assessment/Plan Impression: - Elevated LFTs due to CBD stones with stricture- benign inflammatory vs cholangiocarcinoma or pancreatic cancer. - Cholelithiasis Plan: -- Can stop cholangitis risk -- Eliquis can be resumed -- Cholecystectomy postponed as we await cytology -- Will need cholangioscopy at tertiary center center. I gave her his phone number Discussed case with Dr Plata. NO GI objections to discharge Problem List - Problems (1) Choledocholithiasis Code(s): K80.50 - CALCULUS OF BILE DUCT W/O CHOLANGITIS OR CHOLECYST W/O OBST (2) Elevated LFTs Code(s): R94.5 - ABNORMAL RESULTS OF LIVER FUNCTION STUDIES (3) Cholelithiasis Code(s): K80.20 - CALCULUS OF GALLBLADDER W/O CHOLECYSTITIS W/O OBSTRUCTION (4) Afib Code(s): I48.91 - UNSPECIFIED ATRIAL FIBRILLATION Qualifiers: Atrial fibrillation type: chronic Qualified Code(s): I48.2 - Chronic atrial fibrillation (5) HTN (hypertension) Code(s): I10 - ESSENTIAL (PRIMARY) HYPERTENSION Qualifiers: Hypertension type: essential hypertension Qualified Code(s): I10 - Essential (primary) hypertension (6) CAD (coronary artery disease) Code(s): I25.10 - ATHSCL HEART DISEASE OF [place] CORONARY ARTERY W/O ANG PCTRS (7) COPD (chronic obstructive pulmonary disease) Code(s): J44.9 - CHRONIC OBSTRUCTIVE PULMONARY DISEASE, UNSPECIFIED (8) Carotid stenosis Code(s): I65.29 - OCCLUSION AND STENOSIS OF UNSPECIFIED CAROTID ARTERY (9) Diabetes Code(s): E11.9 - TYPE 2 DIABETES MELLITUS WITHOUT COMPLICATIONS (10) Lung cancer Code(s): C34.90 - MALIGNANT NEOPLASM OF UNSP PART OF UNSP BRONCHUS OR LUNG (11) PVD (peripheral vascular disease) Code(s): I73.9 - PERIPHERAL VASCULAR DISEASE, UNSPECIFIED (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
--- NOTE | 2018-10-08 12:14 | DS ---
Physical Examination Vital Signs: Vital Signs Temperature 37.0 C 10/08/18 06:00 Pulse Rate 80 10/08/18 06:00 Respiratory Rate 17 10/08/18 06:00 Blood Pressure 136/86 10/08/18 06:00 O2 Sat by Pulse Oximetry (%) 96 10/07/18 21:00 Constitutional: Yes: Well Nourished, No Distress, Calm Cardiovascular: Yes: Regular Rate and Rhythm. No: Gallop, Murmur, Rub Respiratory: Yes: Regular, CTA Bilaterally. No: Rales, Rhonchi, Wheezes Gastrointestinal: Yes: Normal Bowel Sounds, Soft. No: Distention, Tenderness Extremities: Yes: WNL Edema: No Labs: CBC, BMP 10/08/18 07:18 10/08/18 07:18 Discharge Summary Reason For Visit: COMMON BILE DUCT CALCULUS ATRIAL FIBRILLATIO Current Active Problems Afib (Acute) Choledocholithiasis (Acute) Cholelithiasis (Acute) Common bile duct stricture (Acute) Elevated LFTs (Acute) HTN (hypertension) (Acute) Hospital Course: -Choledocholithiasis with extra/intra hepatic biliary ductal dilatation and biliary stricture s/p stent placement. -Abnormal LFTs, from above -Uncontrolled HTN, from anxiety, improved -COPD -Diet controlled DM -Afibi with RVR, resolved, on eliquis -CAD s/p CABG -DANIELLE on CPAP Mrs Delgado is a very pleasant 78 year old female who was found to have elevated LFTs on normal labs. She was sent in and was found to have choledocholithiasis. She was planned for ERCP but this had to be postponed secondary to anticoagulation. When safe she underwent ERCP with sphincterotomy. Her LFTs improved after this. Case d/w Dr Hobson and raulito for discharge today. She can restart her eliquis 72 hours after ERCP, which will be Saturday evening. She is to follow up with Dr Mitchell at [facility] for further evaluation and possible removal of her gallbladder. 31 minutes spent in preparation of this discharge Condition: Stable - Instructions Diet, Activity, Other Instructions: Resume previous diet and activity. Follow up with Dr Mitchell at [facility]. Restart eliquis Freddy evening dose. Continue all home inhalers without change. Referrals: Cosme Spring MD [Primary Care Provider] - Maribel Hobson MD [Staff Physician] - Disposition: HOME - Home Medications Comprehensive Discharge Medication List: Ambulatory Orders Alprazolam [Xanax] 0.25 mg PO Q6H PRN #0 tablet 11/24/12 Escitalopram Oxalate [Lexapro -] 20 mg PO DAILY 03/15/14 Omeprazole [Prilosec] 20 mg PO DAILY 03/15/14 Diltiazem HCl [Cardizem LA] 300 mg PO DAILY 02/16/15 Apixaban [Eliquis] 5 mg PO BID 02/17/15 Metoprolol Succinate [Toprol Xl] 50 mg PO HS 02/17/15 Metoprolol Succinate [Toprol XL -] 25 mg PO DAILY 08/28/16 Acetaminophen [Tylenol .Regular Strength -] 650 mg PO Q6H PRN #0 tablet Magnesium Chloride [Slow-Mag -] 128 mg PO DAILY tab 09/03/16 Alprazolam [Xanax] 0.25 mg PO DAILY 10/01/18 Budesonide [Pulmicort 0.25 mg Nebulizer -] 180 mcg IH BID 10/01/18 Cholecalciferol (Vitamin D3) [Vitamin D -] 400 unit PO DAILY 10/01/18 Docusate Sodium [Colace] 100 mg PO DAILY 10/01/18 Potassium Chloride 10 meq PO DAILY 10/02/18 Tiotropium [place] [Spiriva] 18 mcg IH DAILY 10/02/18 Torsemide 50 mg PO DAILY 10/02/18 Ursodiol [Actigal] 300 mg PO BID #60 capsule 10/08/18
--- NOTE | 2018-10-08 15:54 | PATH ---
Cytology Non-Gynecological Report Patient Name: PAUL LOWE Med. Rec. #: [id number] /Age/Gender: 1940 (Age: 78) / F Account: [id number] Location: 4 W TELEMETRY U Taken: 10/06/2018 Received: 10/06/2018 Reported: 10/08/2018 Physicians: Blayne Cueto M.D. Specimen(s) Received BILE DUCT BRUSH Clinical History Common bile duct stricture Final Diagnosis COMMON BILE DUCT BRUSHINGS: SATISFACTORY FOR EVALUATION. NEGATIVE FOR MALIGNANT CELLS. BENIGN SMALL INTESTINAL EPITHELIUM AND CLUSTERS OF BENIGN DUCTAL EPITHELIUM. Electronically Signed Ismael Kc M.D. Gross Description received in 95% alcohol approximately 15cc of fluid was a brush. One slide and one cellblock prepared.
== END 2018-10-08 13:04 | disposition home or self-care (01) | DRG 445 ==
LOC: JER 18:47 → JERBED 23:16 → J8W 10-02 02:50 → J4W 10-02 03:56
PROVIDERS: ADMIT Internal Medicine; ATTEND Internal Medicine
PROC: 0DJ08ZZ Inspection of Upper Intestinal Tract, Via Natural or Artificial Opening Endoscopic (ICD-10-PCS; 2018-10-06)
PROC: BF10YZZ Fluoroscopy of Bile Ducts using Other Contrast (ICD-10-PCS; 2018-10-06)
PROC: 0F798DZ Dilation of Common Bile Duct with Intraluminal Device, Via Natural or Artificial Opening Endoscopic (ICD-10-PCS; principal; 2018-10-06 11:15)
DX: K80.51 Calculus of bile duct without cholangitis or cholecystitis with obstruction (principal); E22.2 Syndrome of inappropriate secretion of antidiuretic hormone; E46 Unspecified protein-calorie malnutrition; I27.20 Pulmonary hypertension, unspecified; E88.09 Other disorders of plasma-protein metabolism, not elsewhere classified; K57.10 Diverticulosis of small intestine without perforation or abscess without bleeding; J44.9 Chronic obstructive pulmonary disease, unspecified; I45.81 Long QT syndrome; I48.2 Chronic atrial fibrillation; E11.9 Type 2 diabetes mellitus without complications; I34.0 Nonrheumatic mitral (valve) insufficiency; E66.9 Obesity, unspecified; Z68.31 Body mass index [BMI] 31.0-31.9, adult; Z79.01 Long term (current) use of anticoagulants; I10 Essential (primary) hypertension; G47.33 Obstructive sleep apnea (adult) (pediatric); I25.10 Atherosclerotic heart disease of native coronary artery without angina pectoris; Z95.1 Presence of aortocoronary bypass graft; Z85.118 Personal history of other malignant neoplasm of bronchus and lung; Z90.2 Acquired absence of lung [part of]; K21.9 Gastro-esophageal reflux disease without esophagitis; Z87.891 Personal history of nicotine dependence; F39 Unspecified mood [affective] disorder; I73.9 Peripheral vascular disease, unspecified; G89.29 Other chronic pain; M54.5 Low back pain
CPT/HCPCS: 36415; 74178-TC; 76000-TC-FY; 76705-TC; 80048; 80053; 80076; 81003; 82150; 83036; 83690; 83735; 83930; 83935; 84100; 84300; 85025; 85610; 85730; 86140; 86301; 86850; 86900; 86901; 87040; 87086; 88104; 93005; 93010; 94640; 99285-25; C1887; Q9967

== ENCOUNTER 2020-04-17 11:25 | Inpatient (IN) | payer OTHER, MEDICARE ==
[2020-04-17] MEDS ORDERED: ACETAMINOPHEN 500 MG TABLET (FP) PO ONE (12:03)
[2020-04-17] MEDS ORDERED: ACETAMINOPHEN 325 MG TABLET (FP) ONE (12:23)
[2020-04-17 12:59] LABS: BASO % 0.3 % (0-2.0); EOS % 0.9 % (0-4.5); HEMATOCRIT 39.3 % (32.4-45.2); HEMOGLOBIN 13.3 GM/dL (10.7-15.3); LYMPH % 6.4 % (8-40); MCH 32.2 pg (25.7-33.7); MCHC 33.9 g/dl (32.0-36.0); MEAN CELL VOLUME 94.9 fl (80-96); MEAN PLT VOLUME 7.5 fl (7.5-11.1); MONO % 12.9 % (3.8-10.2); NEUT % 79.5 % (42.8-82.8); PLATELET COUNT 558 K/MM3 (134-434); RBC 4.15 M/mm3 (3.60-5.2); RDW 13.8 % (11.6-15.6); WHITE BLOOD COUNT 14.6 K/mm3 (4.0-10.0)
[2020-04-17 13:10] LABS: INR 1.56 (0.83-1.09); PROTHROMBIN TIME (PATIENT) 18.6 SEC (9.7-13.0)
[2020-04-17 13:12] LABS: ACTIVATED PTT 28.3 SECONDS (25.2-36.5)
[2020-04-17 13:15] LABS: CHLORIDE 100 mmol/L (98-107); POTASSIUM 4.9 mmol/L (3.5-5.1); SODIUM 136 mmol/L (136-145)
[2020-04-17 13:17] LABS: ALBUMIN 2.9 g/dl (3.4-5.0); ANION GAP 9 MMOL/L (8-16); BLOOD UREA NITROGEN 15.5 mg/dL (7-18); CALCIUM 9.4 mg/dL (8.5-10.1); CO2 26 mmol/L (21-32); GLUCOSE,RANDOM 92 mg/dL (74-106); MAGNESIUM 1.8 mg/dL (1.8-2.4)
[2020-04-17 13:20] LABS: CREATININE 0.8 mg/dL (0.55-1.3); SGOT/AST 24 U/L (15-37); SGPT/ALT 20 U/L (13-61)
[2020-04-17 13:22] LABS: BILIRUBIN,TOTAL 1.5 mg/dL (0.2-1); TOT PROT 6.4 g/dl (6.4-8.2)
[2020-04-17 13:23] LABS: ALK PHOS 119 U/L (45-117)
[2020-04-17 13:24] LABS: N-TERMINAL BNP 3263.6 pg/ml (5-450)
[2020-04-17] MEDS ORDERED: DEXAMETHASONE SOD PHOSPHATE 10 MG/1 ML VIAL IVPUSH ONE (13:44)
[2020-04-17] MEDS ORDERED: AZITHROMYCIN IVPB 500 MG in DEXTROSE 5%-WATER - 250 ML IVPB ONE (13:44)
[2020-04-17] MEDS ORDERED: CEFTRIAXONE 1 GM in DEXTROSE 5%-WATER - 100 ML IVPB ONE (13:44)
[2020-04-17] MEDS ORDERED: ALBUTEROL SO4 2.5/IPRATROPIUM 0.5 INH SOL 3 ML VIAL.NEB. NEB ONE ×2 (14:11→14:48)
[2020-04-17] MEDS ORDERED: DEXAMETHASONE SOD PHOSPHATE 10 MG/1 ML VIAL ONE (14:13)
[2020-04-17] MEDS ORDERED: CEFTRIAXONE 1 GM/50 ML BAG ONE (14:14)
[2020-04-17] MEDS ORDERED: AZITHROMYCIN IVPB 500 MG/250 ML BAG IVPB ONE (14:14)
[2020-04-17] MEDS ORDERED: ALBUTEROL SO4 HFA INHALER IH PRN (14:14)
[2020-04-17] MEDS ORDERED: IPRATROPIUM BR 0.02% 0.5 MG/2.5 ML VIAL.NEB. NEB SCH (16:00)
[2020-04-17] MEDS ORDERED: DOCUSATE SODIUM 100 MG CAPSULE (FP) PO PRN (16:13)
[2020-04-17] MEDS ORDERED: ESCITALOPRAM OXALATE 10 MG TABLET ONE (16:41)
[2020-04-17] MEDS: ESCITALOPRAM OXALATE 20 MG TABLET PO SCH (16:45)
[2020-04-17] MEDS ORDERED: IBUPROFEN 600 MG TABLET (FP) PO ONE ×2 (17:06→17:14)
[2020-04-17] MEDS ORDERED: ALPRAZolam 0.25 MG TABLET ONE (18:23)
[2020-04-17] MEDS: ALPRAZolam 0.25 MG TABLET PO PRN (18:26)
[2020-04-17 19:42] LABS: EPI CELLS >36 /uL (0-25.1); HYALINE CASTS 1 /uL (0-3.1); URINE APPEARANCE CLOUDY; URINE BACTERIA 819 /uL (0-1359); URINE BILIRUBIN NEGATIVE (NEGATIVE); URINE COLOR YELLOW; URINE GLUCOSE (UA) TRACE (NEGATIVE); URINE KETONE NEGATIVE (NEGATIVE); URINE LEUK ESTERASE 2+ (NEGATIVE); URINE NITRITE NEGATIVE (NEGATIVE); URINE PROTEIN TRACE (NEGATIVE); URINE RBC 18 /uL (0-23.9); URINE WBC 246 /uL (0-25.8)
[2020-04-17] MEDS ORDERED: ATORVASTATIN CA 20 MG TABLET (FP) ONE (22:03)
[2020-04-17] MEDS ORDERED: APIXABAN 5 MG TABLET ONE (22:04)
[2020-04-17] MEDS ORDERED: DOXYCYCLINE HYCLATE 100 MG VIAL ONE (22:04)
[2020-04-17] MEDS: APIXABAN 5 MG TABLET PO SCH (22:14)
[2020-04-17] MEDS: ATORVASTATIN CA 20 MG TABLET (FP) PO SCH (22:14)
[2020-04-17] MEDS: DOXYCYCLINE INJECTION 100 MG in DEXTROSE 5%-WATER 100 ML IVPB SCH (22:14)
[2020-04-17] MEDS: FLUTICASONE/SALMETEROL 100 MCG/50 MCG DISKUS IH SCH (22:26)
[2020-04-18] MEDS: ALPRAZolam 0.25 MG TABLET PO PRN ×3 (02:23→22:32)
[2020-04-18 10:22] LABS: BASO % 0.2 % (0-2.0); HEMATOCRIT 36.8 % (32.4-45.2); HEMOGLOBIN 12.6 GM/dL (10.7-15.3); LYMPH % 4.9 % (8-40); MCH 32.7 pg (25.7-33.7); MCHC 34.3 g/dl (32.0-36.0); MEAN CELL VOLUME 95.2 fl (80-96); MEAN PLT VOLUME 8.1 fl (7.5-11.1); NEUT % 90.9 % (42.8-82.8); PLATELET COUNT 471 K/MM3 (134-434); RBC 3.86 M/mm3 (3.60-5.2); RDW 13.5 % (11.6-15.6); WHITE BLOOD COUNT 10.4 K/mm3 (4.0-10.0)
[2020-04-18 10:31] LABS: POTASSIUM 4.7 mmol/L (3.5-5.1)
[2020-04-18 10:34] LABS: ALBUMIN 2.8 g/dl (3.4-5.0); BLOOD UREA NITROGEN 13.7 mg/dL (7-18); MAGNESIUM 1.8 mg/dL (1.8-2.4)
[2020-04-18 10:35] LABS: CALCIUM 9.2 mg/dL (8.5-10.1)
[2020-04-18 10:37] LABS: CREATININE 0.7 mg/dL (0.55-1.3)
[2020-04-18 10:38] LABS: TOT PROT 6.4 g/dl (6.4-8.2)
[2020-04-18 10:42] LABS: BILIRUBIN,TOTAL 1.1 mg/dL (0.2-1)
[2020-04-18] MEDS: APIXABAN 5 MG TABLET PO SCH ×2 (10:47→22:33)
[2020-04-18] MEDS: CEFTRIAXONE 1 GM in DEXTROSE 5%-WATER - 50 ML IVPB SCH (10:47)
[2020-04-18] MEDS: PANTOPRAZOLE 40 MG TABLET PO SCH (11:58)
[2020-04-18] MEDS: ESCITALOPRAM OXALATE 20 MG TABLET PO SCH (11:58)
[2020-04-18] MEDS: CHOLECALCIFEROL (VIT D3) 1,000 UNIT (25 MCG) TABLET PO SCH (11:58)
[2020-04-18] MEDS: TORSEMIDE 100 MG TABLET PO SCH (11:59)
[2020-04-18] MEDS: FLUTICASONE/SALMETEROL 100 MCG/50 MCG DISKUS IH SCH ×2 (12:00→22:32)
[2020-04-18] MEDS: DOXYCYCLINE INJECTION 100 MG in DEXTROSE 5%-WATER 100 ML IVPB SCH (12:00)
[2020-04-18] MEDS ORDERED: REMDESIVIR 200 MG in SODIUM CHLORIDE 210 ML IVPB ONE (15:00)
[2020-04-18] MEDS: DEXAMETHASONE SOD PHOSPHATE 4 MG/1 ML VIAL IVPUSH SCH (16:07)
[2020-04-18] MEDS ORDERED: predniSONE 20 MG TABLET (UD) PO SCH (17:30)
[2020-04-18] MEDS: IBUPROFEN 400 MG TABLET (FP) PO PRN (18:22)
[2020-04-18] MEDS ORDERED: ALBUTEROL SO4 2.5/IPRATROPIUM 0.5 INH SOL 3 ML VIAL.NEB. NEB SCH (20:00)
[2020-04-18] MEDS: ATORVASTATIN CA 20 MG TABLET (FP) PO SCH (22:32)
[2020-04-19 08:57] LABS: POTASSIUM 4.3 mmol/L (3.5-5.1)
[2020-04-19 08:59] LABS: CALCIUM 9.4 mg/dL (8.5-10.1)
[2020-04-19 09:00] LABS: BLOOD UREA NITROGEN 18.8 mg/dL (7-18)
[2020-04-19 09:03] LABS: CREATININE 0.8 mg/dL (0.55-1.3)
[2020-04-19 09:04] LABS: BILIRUBIN,TOTAL 0.7 mg/dL (0.2-1); TOT PROT 6.5 g/dl (6.4-8.2)
[2020-04-19 09:15] LABS: BASO % 0.2 % (0-2.0); HEMATOCRIT 38.9 % (32.4-45.2); HEMOGLOBIN 13.1 GM/dL (10.7-15.3); LYMPH % 4.5 % (8-40); MCH 32.1 pg (25.7-33.7); MCHC 33.8 g/dl (32.0-36.0); MEAN PLT VOLUME 7.7 fl (7.5-11.1); MONO % 7.3 % (3.8-10.2); PLATELET COUNT 544 K/MM3 (134-434); RBC 4.09 M/mm3 (3.60-5.2); RDW 13.5 % (11.6-15.6); WHITE BLOOD COUNT 12.5 K/mm3 (4.0-10.0)
[2020-04-19] MEDS: CHOLECALCIFEROL (VIT D3) 1,000 UNIT (25 MCG) TABLET PO SCH (10:38)
[2020-04-19] MEDS: AZITHROMYCIN 250 MG TABLET PO SCH (10:38)
[2020-04-19] MEDS: APIXABAN 5 MG TABLET PO SCH ×2 (10:38→21:25)
[2020-04-19] MEDS: FLUTICASONE/SALMETEROL 100 MCG/50 MCG DISKUS IH SCH ×2 (10:39→21:26)
[2020-04-19] MEDS: PANTOPRAZOLE 40 MG TABLET PO SCH (10:39)
[2020-04-19] MEDS: CEFTRIAXONE 1 GM in DEXTROSE 5%-WATER - 50 ML IVPB SCH (10:39)
[2020-04-19] MEDS: ESCITALOPRAM OXALATE 20 MG TABLET PO SCH (10:39)
[2020-04-19] MEDS: DEXAMETHASONE SOD PHOSPHATE 4 MG/1 ML VIAL IVPUSH SCH (10:40)
[2020-04-19] MEDS: TORSEMIDE 100 MG TABLET PO SCH (10:40)
[2020-04-19 13:47] VITALS: BMI 27.6
[2020-04-19] MEDS: REMDESIVIR 100 MG in SODIUM CHLORIDE 230 ML IVPB SCH (14:24)
[2020-04-19] MEDS ORDERED: NAPROXEN 250 MG TABLET PO ONE (17:18)
[2020-04-19] MEDS ORDERED: ACETAMINOPHEN 325 MG TABLET (FP) PO PRN (18:57)
[2020-04-19] MEDS: ALPRAZolam 0.25 MG TABLET PO PRN (21:25)
[2020-04-19] MEDS: ATORVASTATIN CA 20 MG TABLET (FP) PO SCH (21:25)
[2020-04-20 07:55] LABS: BASO % 0.2 % (0-2.0); HEMATOCRIT 38.8 % (32.4-45.2); HEMOGLOBIN 13.1 GM/dL (10.7-15.3); LYMPH % 4.2 % (8-40); MCH 31.9 pg (25.7-33.7); MCHC 33.7 g/dl (32.0-36.0); MEAN CELL VOLUME 94.7 fl (80-96); MEAN PLT VOLUME 7.4 fl (7.5-11.1); MONO % 8.3 % (3.8-10.2); NEUT % 87.3 % (42.8-82.8); PLATELET COUNT 512 K/MM3 (134-434); RBC 4.09 M/mm3 (3.60-5.2)
[2020-04-20 08:25] LABS: CALCIUM 9.3 mg/dL (8.5-10.1)
[2020-04-20 08:26] LABS: ALBUMIN 2.9 g/dl (3.4-5.0); BLOOD UREA NITROGEN 27.9 mg/dL (7-18)
[2020-04-20 08:30] LABS: CREATININE 0.9 mg/dL (0.55-1.3)
[2020-04-20 08:31] LABS: BILIRUBIN,TOTAL 0.6 mg/dL (0.2-1); TOT PROT 6.2 g/dl (6.4-8.2)
[2020-04-20] MEDS: ESCITALOPRAM OXALATE 20 MG TABLET PO SCH (10:54)
[2020-04-20] MEDS: PANTOPRAZOLE 40 MG TABLET PO SCH (10:54)
[2020-04-20] MEDS: AZITHROMYCIN 250 MG TABLET PO SCH (10:54)
[2020-04-20] MEDS: CEFTRIAXONE 1 GM in DEXTROSE 5%-WATER - 50 ML IVPB SCH (10:54)
[2020-04-20] MEDS: APIXABAN 5 MG TABLET PO SCH ×2 (10:54→21:34)
[2020-04-20] MEDS: DEXAMETHASONE SOD PHOSPHATE 4 MG/1 ML VIAL IVPUSH SCH (10:54)
[2020-04-20] MEDS: CHOLECALCIFEROL (VIT D3) 1,000 UNIT (25 MCG) TABLET PO SCH (10:54)
[2020-04-20] MEDS: TORSEMIDE 100 MG TABLET PO SCH (10:55)
[2020-04-20] MEDS: FLUTICASONE/SALMETEROL 100 MCG/50 MCG DISKUS IH SCH ×2 (10:55→21:34)
[2020-04-20] MEDS: NAPROXEN 250 MG TABLET PO SCH ×2 (10:55→21:33)
[2020-04-20] MEDS: REMDESIVIR 100 MG in SODIUM CHLORIDE 230 ML IVPB SCH (14:23)
[2020-04-20] MEDS ORDERED: ALPRAZolam 0.25 MG TABLET PO PRN (21:20)
[2020-04-20] MEDS: ATORVASTATIN CA 20 MG TABLET (FP) PO SCH (21:33)
[2020-04-21] MEDS: IBUPROFEN 400 MG TABLET (FP) PO PRN ×2 (04:04→17:01)
[2020-04-21 09:38] LABS: BASO % 0.1 % (0-2.0); HEMATOCRIT 40.2 % (32.4-45.2); HEMOGLOBIN 13.7 GM/dL (10.7-15.3); LYMPH % 4.2 % (8-40); MCH 32.3 pg (25.7-33.7); MEAN CELL VOLUME 95.2 fl (80-96); MEAN PLT VOLUME 7.2 fl (7.5-11.1); MONO % 10.2 % (3.8-10.2); NEUT % 85.5 % (42.8-82.8); PLATELET COUNT 543 K/MM3 (134-434); RBC 4.22 M/mm3 (3.60-5.2); WHITE BLOOD COUNT 12.9 K/mm3 (4.0-10.0)
[2020-04-21] MEDS: NAPROXEN 250 MG TABLET PO SCH ×2 (09:41→21:21)
[2020-04-21] MEDS: APIXABAN 5 MG TABLET PO SCH ×2 (09:42→21:22)
[2020-04-21] MEDS: CHOLECALCIFEROL (VIT D3) 1,000 UNIT (25 MCG) TABLET PO SCH (09:42)
[2020-04-21] MEDS: ESCITALOPRAM OXALATE 20 MG TABLET PO SCH (09:43)
[2020-04-21] MEDS: TORSEMIDE 100 MG TABLET PO SCH (09:43)
[2020-04-21] MEDS: PANTOPRAZOLE 40 MG TABLET PO SCH (09:43)
[2020-04-21] MEDS: AZITHROMYCIN 250 MG TABLET PO SCH (09:43)
[2020-04-21] MEDS: DEXAMETHASONE SOD PHOSPHATE 4 MG/1 ML VIAL IVPUSH SCH (09:44)
[2020-04-21 09:57] LABS: POTASSIUM 4.1 mmol/L (3.5-5.1)
[2020-04-21] MEDS: FLUTICASONE/SALMETEROL 100 MCG/50 MCG DISKUS IH SCH ×2 (10:00→22:24)
[2020-04-21 10:02] LABS: ALBUMIN 3.1 g/dl (3.4-5.0)
[2020-04-21 10:05] LABS: BILIRUBIN,TOTAL 0.6 mg/dL (0.2-1); CALCIUM 9.3 mg/dL (8.5-10.1)
[2020-04-21 10:08] LABS: TOT PROT 6.3 g/dl (6.4-8.2)
[2020-04-21 10:20] LABS: BLOOD UREA NITROGEN 37.7 mg/dL (7-18)
[2020-04-21] MEDS: LIDOCAINE 5% TOPICAL PATCH TP SCH (12:33)
[2020-04-21] MEDS: REMDESIVIR 100 MG in SODIUM CHLORIDE 230 ML IVPB SCH (17:01)
[2020-04-21] MEDS: LIDOCAINE PATCH REMOVAL MC SCH (21:22)
[2020-04-21] MEDS: ATORVASTATIN CA 20 MG TABLET (FP) PO SCH (21:22)
[2020-04-21] MEDS: ALPRAZolam 0.25 MG TABLET PO PRN (21:24)
[2020-04-22] MEDS: TORSEMIDE 100 MG TABLET PO SCH (09:38)
[2020-04-22] MEDS: ESCITALOPRAM OXALATE 20 MG TABLET PO SCH (09:39)
[2020-04-22] MEDS: DEXAMETHASONE SOD PHOSPHATE 4 MG/1 ML VIAL IVPUSH SCH (09:39)
[2020-04-22] MEDS: APIXABAN 5 MG TABLET PO SCH ×2 (09:39→21:05)
[2020-04-22] MEDS: LIDOCAINE 5% TOPICAL PATCH TP SCH (09:40)
[2020-04-22] MEDS: PANTOPRAZOLE 40 MG TABLET PO SCH (09:43)
[2020-04-22] MEDS: NAPROXEN 250 MG TABLET PO SCH ×2 (09:43→21:05)
[2020-04-22] MEDS: CHOLECALCIFEROL (VIT D3) 1,000 UNIT (25 MCG) TABLET PO SCH (09:44)
[2020-04-22] MEDS: AZITHROMYCIN 250 MG TABLET PO SCH (09:44)
[2020-04-22] MEDS: FLUTICASONE/SALMETEROL 100 MCG/50 MCG DISKUS IH SCH ×2 (09:48→21:04)
[2020-04-22 13:01] LABS: BASO % 0.2 % (0-2.0); HEMATOCRIT 43.3 % (32.4-45.2); HEMOGLOBIN 14.5 GM/dL (10.7-15.3); LYMPH % 2.3 % (8-40); MCHC 33.6 g/dl (32.0-36.0); MEAN CELL VOLUME 95.2 fl (80-96); MEAN PLT VOLUME 7.7 fl (7.5-11.1); MONO % 8.4 % (3.8-10.2); NEUT % 89.1 % (42.8-82.8); PLATELET COUNT 540 K/MM3 (134-434); RBC 4.55 M/mm3 (3.60-5.2); WHITE BLOOD COUNT 15.1 K/mm3 (4.0-10.0)
[2020-04-22 13:22] LABS: POTASSIUM 3.9 mmol/L (3.5-5.1)
[2020-04-22 13:23] LABS: CALCIUM 8.9 mg/dL (8.5-10.1)
[2020-04-22 13:24] LABS: BLOOD UREA NITROGEN 40.8 mg/dL (7-18)
[2020-04-22 13:25] LABS: ALBUMIN 3.2 g/dl (3.4-5.0)
[2020-04-22 13:27] LABS: CREATININE 1.1 mg/dL (0.55-1.3)
[2020-04-22 13:29] LABS: BILIRUBIN,TOTAL 0.7 mg/dL (0.2-1); TOT PROT 6.7 g/dl (6.4-8.2)
[2020-04-22] MEDS: REMDESIVIR 100 MG in SODIUM CHLORIDE 230 ML IVPB SCH (14:46)
[2020-04-22] MEDS: ATORVASTATIN CA 20 MG TABLET (FP) PO SCH (21:05)
[2020-04-22] MEDS: ALPRAZolam 0.25 MG TABLET PO PRN (21:05)
[2020-04-22] MEDS: LIDOCAINE PATCH REMOVAL MC SCH (21:07)
[2020-04-23 08:37] LABS: POTASSIUM 3.8 mmol/L (3.5-5.1)
[2020-04-23 08:54] LABS: BASO % 0.1 % (0-2.0); HEMATOCRIT 41.6 % (32.4-45.2); HEMOGLOBIN 14.2 GM/dL (10.7-15.3); LYMPH % 3.5 % (8-40); MCH 32.4 pg (25.7-33.7); MEAN CELL VOLUME 95.4 fl (80-96); MEAN PLT VOLUME 7.7 fl (7.5-11.1); MONO % 10.4 % (3.8-10.2); PLATELET COUNT 434 K/MM3 (134-434); RBC 4.36 M/mm3 (3.60-5.2); RDW 13.9 % (11.6-15.6); WHITE BLOOD COUNT 15.2 K/mm3 (4.0-10.0)
[2020-04-23] MEDS: CHOLECALCIFEROL (VIT D3) 1,000 UNIT (25 MCG) TABLET PO SCH (09:11)
[2020-04-23] MEDS: TORSEMIDE 100 MG TABLET PO SCH (09:12)
[2020-04-23] MEDS: NAPROXEN 250 MG TABLET PO SCH (09:13)
[2020-04-23] MEDS: APIXABAN 5 MG TABLET PO SCH (09:13)
[2020-04-23 09:15] LABS: ALBUMIN 3.1 g/dl (3.4-5.0)
[2020-04-23] MEDS: DEXAMETHASONE SOD PHOSPHATE 4 MG/1 ML VIAL IVPUSH SCH (09:15)
[2020-04-23 09:19] LABS: BILIRUBIN,TOTAL 0.8 mg/dL (0.2-1); TOT PROT 6.2 g/dl (6.4-8.2)
[2020-04-23] MEDS: ESCITALOPRAM OXALATE 20 MG TABLET PO SCH (09:19)
[2020-04-23] MEDS: FLUTICASONE/SALMETEROL 100 MCG/50 MCG DISKUS IH SCH (09:20)
[2020-04-23] MEDS: LIDOCAINE 5% TOPICAL PATCH TP SCH (09:20)
[2020-04-23] MEDS: PANTOPRAZOLE 40 MG TABLET PO SCH (09:22)
[2020-04-23 11:14] VITALS: BP 139/77; PULSE 102; TEMP 98.4
[2020-04-23 15:40] LABS: ANISOCYTOSIS 0; MACROCYTOSIS 1+; PLATELET ESTIMATE NORMAL
== END 2020-04-23 15:00 | DRG 189 ==
LOC: JER 11:25 → JERBED 13:58 → J5WEST-2 23:12
PROVIDERS: ADMIT Student in an Organized Health Care Education/Training Program; ATTEND Internal Medicine
PROC: XW033E5 Introduction of Remdesivir Anti-infective into Peripheral Vein, Percutaneous Approach, New Technology Group 5 (ICD-10-PCS; principal; 2020-04-18)
DX: J96.01 Acute respiratory failure with hypoxia (principal); J12.82 Pneumonia due to coronavirus disease 2019; J44.1 Chronic obstructive pulmonary disease with (acute) exacerbation; I48.20 Chronic atrial fibrillation, unspecified; B94.8 Sequelae of other specified infectious and parasitic diseases; Z79.01 Long term (current) use of anticoagulants; I10 Essential (primary) hypertension; I25.10 Atherosclerotic heart disease of native coronary artery without angina pectoris; Z95.1 Presence of aortocoronary bypass graft; I27.20 Pulmonary hypertension, unspecified; Z85.118 Personal history of other malignant neoplasm of bronchus and lung; Z99.81 Dependence on supplemental oxygen; Z87.891 Personal history of nicotine dependence; E11.9 Type 2 diabetes mellitus without complications; E78.5 Hyperlipidemia, unspecified; G47.33 Obstructive sleep apnea (adult) (pediatric); E11.51 Type 2 diabetes mellitus with diabetic peripheral angiopathy without gangrene
CPT/HCPCS: 36415; 71045-TC-FY; 80053; 81003; 82550; 82728; 83615; 83735; 83880; 84100; 84484; 85025; 85379; 85610; 85730; 86140; 86738; 86769; 87040; 87070; 87186; 87205; 87804; 87899; 93005; 93010; 94010; 97116-GP; 97162-GP; 99285-25; C9399; C9803; J1100; U0003